=== PATIENT | female | born 2000 | race Caucasian/White ===

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

== ENCOUNTER 2021-09-24 15:01 | Emergency (ER) | payer MEDICAID, SELFPAY ==
[2021-09-24 15:06] VITALS: BP 135/79; PULSE 97; RESP 16; TEMP 37.2; O2SAT 98
--- NOTE | 2021-09-24 15:17 | W.ED.GENAD ---
Discharge Plan Disposition Patient Disposition: HOME Condition: Stable Discharge Details Clinical Impression: Abdominal pain Primary Care Provider: Unknown,Unknown ED Provider: Yao Koch Home Meds and New Rx's Prescriptions: Continued loratadine [Claritin] 10 mg tablet 10 mg PO DAILY RF: 0 Kyleena 17.5 mcg/24 hrs (5 yrs) 19.5 mg intrauterine device 1 device IY ONCE RF: 0 (DME) Aerochamber Plus Flow-Vu 1 EACH spacer 1 ea Miscellaneous PRN Qty: 1 RF: 1 albuterol sulfate [ProAir HFA] 8.5 GM HFA aerosol inhaler 2 puff Inhalation ONCE Qty: 1 RF: 1 ibuprofen 800 mg tablet 800 mg PO TID PRN (Reason: pain) Qty: 30 RF: 2 Chewable Multi Vitamin 1 EACH tablet,chewable 1 tab PO DAILY PRN PRNRF: 0 Discharge Instructions Instructions: Abdominal Pain (ED) Additional Instructions: Please follow-up for your ultrasound they will likely call you in the morning, if you do not hear from them by 10, I recommend calling Take ibuprofen 600 mg every 8 hours with food Take Tylenol 650 mg every 4-6 hours Return with worsening pain, fever, chills, or should you have new or progressing symptoms Follow-up with the EDGE TRIMMING MACHINE OPERATOR doctor listed Referrals: Kathrine Malone MD [ [facility] STAFF PHYSICIAN] - Summer English MD [ [facility] STAFF PHYSICIAN] - Discharge Data Discharge Date/Time-TO BE ENTERED AT DEPARTURE: 09/24/21 17:19 Medical Decision Making <CARISSA Armendariz - Last Filed: 09/25/21 12:10> 21-year-old female who reports history of recurrent ovarian cyst, seen at another ER 2 months ago and told that she had 7 on her right ovary via ultrasound. Patient reports this pain feels very similar. She is typically away at school and has not been able to follow-up easily with her EDGE TRIMMING MACHINE OPERATOR team here locally. Clinically she appears well, nontoxic. Abdomen is soft, diffuse lower tenderness worse in the right side but no guarding rebound or rigidity. Abdominal exam is not consistent with an acute abdomen. Patient declines pelvic examination. Given she has not sexually active, recently had a normal pelvic ultrasound and pelvic examination with negative swabs, I do believe this to be reasonable. Patient is agreeable to obtaining IV access, medical screening laboratory values, urinalysis, and will give IV Toradol and Zofran. I believe that her examination is most consistent with ovarian cyst and extremely low suspicion for ovarian torsion. Given her symptoms however certainly cannot rule out , ectopic , UTI, pyelonephritis, appendicitis, etc. I have placed her on the EDGE TRIMMING MACHINE OPERATOR list to help expedite her outpatient follow-up while she is home on school break. We can also set up for outpatient US Medical Records Medical records reviewed: Yes I reviewed the patient's medical records. <CARISSA Medina - Last Filed: 09/24/21 18:35> Care is transitioned to me from Yao Koch physician assistant golf professional at [address] Patient is resting comfortably in room, she states that her pain is almost completely resolved On exam she has minimal tenderness in her right adnexal region, she has no McBurney's point tenderness, rebound, or guarding, her CBC and CMP are reassuring, her urine is negative and urinalysis is reassuring She is ordered for an outpatient pelvic ultrasound Low suspicion for torsion or appendicitis on exam She has not been sexually active since she had a pelvic exam and swabs performed to months ago and declines additional exam today At this time think she stable for discharge home She is given low threshold to return should she have new or worsening complaints We have ordered an ultrasound in the emergency room today not available and given the low suspicion for torsion on today's exam I do not think there is acute need for an ultrasound, she is aware that should she have recurrence of her pain or with any persistent or worsening symptoms that she should be reassessed immediately Discharged home in stable condition with stable vitals Medical Records Medical records reviewed: Yes I reviewed the patient's medical records. Lab Data Lab results reviewed: Yes I reviewed the patient's lab results. HPI <CARISSA Armendariz - Last Filed: 09/25/21 12:10> General Mode of arrival: ambulatory. Date/Time Provider Initiated Documentation: 09/24/21 15:01. Limitations to Documentation: no limitations. Information obtained by: patient. HPI Narrative: This is a 21-year-old female who reports reoccurring ovarian cyst, dysmenorrhea, presenting to the ER reporting right lower quadrant pain that began yesterday which is consistent with her chronic ovarian cyst. She states the pain is moderate, aching and sharp, took Tylenol with little relief. Patient states that she was seen at another ER approximately 2 months ago and at that time had an extensive work-up including pelvic exam, vaginal cultures, ultrasound, and subsequently discharged. Patient states that at that time she was sexually active but since her ER visit she has not been sexually active. Patient denies history of STD or exposure of known STD. Denies vaginal bleeding or discharge. She does report nausea but denies any vomiting. She reports the pain does radiate into her back. Denies fever, dysuria, hematuria, diarrhea or constipation. Patient is wondering if a refill of the medication given to her at the other hospital would be beneficial. She was able to show me a screenshot on her phone it would appear as though she was provided a prescription for doxycycline and Flagyl. She reports very irregular menstrual cycles, last menstrual cycle was approximately 2 weeks ago. Patient states that she was initially treated with an IUD for her irregular periods which helped initially but now symptoms seem to breakthrough on a regular basis. She is away at school and it is difficult for her to follow-up with her EDGE TRIMMING MACHINE OPERATOR team here. Related Data Home Medications Medication Instructions Recorded Confirmed Chewable Multi Vitamin 1 tab PO DAILY PRN PRN 10/29/14 09/24/21 Aerochamber Plus Flow-Vu #1 script 05/16/16 04/23/19 albuterol sulfate [ProAir HFA] 2 puff INHALATION ONCE #1 inhaler 05/15/17 09/24/21 loratadine 10 mg tablet 10 mg PO DAILY 01/12/19 09/24/21 ibuprofen 800 mg tablet 800 mg PO TID PRN #30 tab 04/02/19 09/24/21 levonorgestrel 1 device IY ONCE 04/30/19 09/24/21 Previous Rx's Medication Instructions Recorded ibuprofen 800 mg tablet 800 mg PO TID PRN #30 tab 04/02/19 Allergies Allergy/AdvReac Type Severity Reaction Status Date / Time No Known Allergies Allergy Verified 09/24/21 15:12 General Stated Complaint: EDGE TRIMMING MACHINE OPERATOR KAYLI: 3 Review of Systems <CARISSA Armendariz - Last Filed: 09/25/21 12:10> Constitutional Constitutional: Denies fever(s) Cardiovascular Cardiovascular: Denies chest pain and Denies dyspnea Respiratory Respiratory: Denies cough and Denies dyspnea Gastrointestinal Gastrointestinal: Reports abdominal pain, Denies constipation, Denies diarrhea, Reports nausea and Denies vomiting Genitourinary Genitourinary: Reports abnormal vaginal bleeding, Denies hematuria, Denies dysuria and Denies vaginal discharge Musculoskeletal Musculoskeletal: Reports back pain Integumentary/Breasts Skin/Breast: Denies rash PFSH <CARISSA Armendariz - Last Filed: 09/25/21 12:10> All Active Problems (Updated 09/24/21 @ 17:06 by CARISSA Medina) Abdominal pain (Acute) Mild intermittent asthma (Acute) Dysmenorrhea in adolescent (Acute 08/27/17) Menorrhagia with regular cycle (Acute 08/27/17) Medical History (Updated 09/24/21 @ 17:06 by CARISSA Medina) Fracture of phalanx of right index finger Plica syndrome, left knee Surgical History Arthroplasty of knee Family History Mother No problems noted. 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 Do you feel safe at home: Yes Do you feel safe in your relationship?: Yes Female Reproductive History Menstrual Age of Menarche: 16 control method: none and progestin IUCD (Kyleena inserted by Carson Reyes NP [id number] EXP=02/2021) History History 0 Para Hx # Term Pregnancies Multiple births Hx # Pregnancies Ectopic pregnancies AB induced Hx Number of Living Children AB spontaneous Exam <CARISSA Armendariz - Last Filed: 09/25/21 12:10> Const General: cooperative, healthy appearing, comfortable and no acute distress Orientation: alert and awake HENMT Head: normal to inspection, normocephalic and atraumatic Eyes General: appearance normal, both eyes and all related structures Conjunctivae: conjunctivae normal Neck Neck: normal visual inspection, trachea midline and supple Resp Effort & Inspection: normal respiratory effort and able to speak in complete sentences Auscultation: clear to auscultation bilaterally Cardio Rate: regular rate Rhythm: regular rhythm GI Inspection: normal to inspection Palpation: soft, not firm, no guarding, no pulsatile masses and tender (Diffuse lower quadrants, worse on the right lower) with no rebound tenderness Auscultation: normal bowel sounds General: deferred (Patient declined) Back/Spine/Pelvis Back: No back tenderness Skin General skin exam: no rashes or lesions noted Neuro General: patient alert, patient awake, moves all extremities and no focal motor deficits Sensory Exam: no sensory deficits noted Psych Appearance: grossly normal Mental Status: mental status grossly normal Course <CARISSA Armendariz - Last Filed: 09/25/21 12:10> Vital Signs Vital signs: Vital Signs Temperature 37.2 C 09/24/21 15:06 Pulse 97 H 09/24/21 15:06 Respiratory Rate 16 09/24/21 15:06 Blood Pressure 135/79 09/24/21 15:06 Pulse Oximetry 98 09/24/21 15:06 Temperature 37.2 C 09/24/21 15:06 Temperature Source Skin 09/24/21 15:06 Pulse 97 H 09/24/21 15:06 Respiratory Rate 16 09/24/21 15:06 Respiratory Effort 09/24/21 15:14 Blood Pressure 135/79 09/24/21 15:06 Blood Pressure Position Sitting 09/24/21 15:06 Pulse Oximetry 98 09/24/21 15:06 Oxygen Delivery Method Room Air 09/24/21 15:06 Oxygen Flow Rate 0 09/24/21 15:06 Pain Level 9 09/24/21 15:16 Comment 09/24/21 15:06 PAWSS <CARISSA Armendariz - Last Filed: 09/25/21 12:10> Have you Been Recently Intoxicated or Drunk Within the Last 30 days?: No Have you Ever Experienced Previous Episodes of Alcohol Withdrawal?: No Have you ever Experienced Withdrawal Seizures?: No Have you ever Experienced Delirium Tremens(DT)s?: No Have you ever undergone Alcohol Rehabilitation Treatment (i.e, inpt ot outpatient treatment programs)?: No Have you ever Experienced Blackouts?: No Have you ever Combined Alcohol with other Downers within the last 90 days?: No Have you ever Combined Alcohol with any other Substance of Abuse during the last 90 days?: No Positive Blood Alcohol level on Presentation? [PCS.BAL]: No Evidence of Increased Autonomic Activity (i.e. HR>120, tremor, sweating, agitation, nausea)?: No Result: 0
[2021-09-24 15:56] LABS: Bilirubin Negative (Negative); Blood Negative (Negative); Clarity Clear (Clear); Glucose Negative (Negative); Ketones Negative (Negative); Leukocyte Esterase Negative (Negative); Nitrite Negative (Negative); Specific Gravity 1.025 (1.005-1.025); Urobilinogen 0.2 EU/dL (Up TO 0.2)
--- NOTE | 2021-09-24 15:58 | NUR.NOTE ---
Faxed referral to [facility] for recurrent ovarian cysts. She is here on vacation from school, hoping to be seen while home on vacation. She is an established patient at [facility]. Put the referral in Care Management's box.
[2021-09-24 15:59] LABS: Abs Immature Grans 0.03 10^3/uL (0.0-0.06); Absolute Basophil Count 0.05 10^3/uL (0.0-0.2); Absolute Eosinophil Count 0.06 10^3/uL (0.0-0.7); Absolute Lymphocyte Count 2.51 10^3/uL (1.2-3.4); Absolute Neutrophil Count 6.62 10^3/uL (1.2-6.7); Basophils % 0.5; Eosinophils % 0.6; HCT 45.9 % (36.0-46.0); HGB 14.7 g/dL (11.2-15.7); Immature Grans % 0.3; Lymphocytes % 24.9; MCH 28.3 pg (27.0-33.0); MCV 88.4 fL (80-95); Monocytes % 7.9; Neutrophils % 65.8; Nucleated RBC 0 %; Platelet Count 338 10^3/uL (130-400); RBC 5.19 10^6/uL (3.93-5.22); RDW 11.9 % (11.7-14.6); RDW-SD 38.5 fL; WBC 10.07 10^3/uL (4.4-10.8)
[2021-09-24] MEDS: Ondansetron 4 MG/2 ML VIAL IVP (15:59)
[2021-09-24] MEDS: Ketorolac 30 MG/ML VIAL IVP (16:01)
[2021-09-24 16:18] LABS: ALT 16 U/L (14-59); AST 15 U/L (15-37); Albumin 4.3 g/dL (3.4-5.0); Alkaline Phosphatase 84 U/L (46-116); Anion Gap 7.6 mmol/L (3-11); BUN 9 mg/dL (7-18); Bilirubin, Total 0.4 mg/dL (0.2-1.0); CO2 29.4 mmol/L (21.0-32.0); CREATININE 0.7 mg/dL (0.55-1.02); Calcium 9.2 mg/dL (8.5-10.1); Chloride 104 mmol/L (98-107); Glucose 88 mg/dL (74-106); Lipase 101 U/L (73-393); Potassium 3.6 mmol/L (3.5-5.1); Sodium 141 mmol/L (136-145); Total Protein 8.1 g/dL (6.4-8.2)
[2021-09-24 17:19] VITALS: BP 129/77; PULSE 78; RESP 16; TEMP 36.5; O2SAT 96
[2021-09-26 22:01] LABS: Chlamydia Result Negative (Negative); GC Result Negative (Negative)
== END 2021-09-24 17:19 | disposition home or self-care (01) ==
PROVIDERS: Emergency Provider Physician Assistant
DX: R10.31 Right lower quadrant pain (principal); N83.201 Unspecified ovarian cyst, right side
CPT/HCPCS: 36415; 80053; 81025; 83690; 87491; 87591; 96374; 96375; 99284; 81003; 85025; 99283; J1885; J2405

== ENCOUNTER 2021-09-25 12:24 | Outpatient (CLI) | payer MEDICAID, SELFPAY ==
--- NOTE | 2021-09-25 | DI.US_ITS ---
Exam(s) US PELVIS TRANSVAGINAL EXAM: US PELVIS TRANSVAGINAL CLINICAL HISTORY: RT ADNEXAL PAIN, HX OVARIAN CYSTS TECHNIQUE: Transabdominal and transvaginal imaging was performed using standard protocol. COMPARISON: US US PELVIS TRANSVAGINAL from 01/27/2019 US US PELVIS TRANSVAGINAL from 01/27/2019 FINDINGS: KIDNEYS: Kidneys are symmetric in size. No evidence of renal calculi. Question of bilateral prominent extrarenal pelves.. No renal mass or cyst identified. UTERUS: Anteverted. 8.1 x 3.2 x 5.9 cm Endometrium: IUD approach appears in appropriate position. Endometrial stripe 3 millimeters. Myometrium: Unremarkable. Cervix: Unremarkable. OVARIES: Right: Cyst or mass: 1.8 centimeter involuting corpus luteum cyst. Additional 9 millimeter follicle. . Left: Cyst or mass: 4 x 3 x 5 centimeter circumscribed lesion with intermediate level echoes and mobi le debris. Findings could represent a hemorrhagic cyst. There is no evidence of torsion. DOPPLER: Color: Symmetric and uniform flow to both ovaries. No hyperemia. Duplex: Normal ovarian arterial waveforms visualized. CUL-DE-SAC: Free fluid: None. IMPRESSION: 1. Normal-appearing uterus with endometrial stripe within normal limits. 2. Unremarkable bilateral ovaries. DATA REPOSITORY:
== END 2021-09-25 12:44 ==
PROVIDERS: Visit Provider Physician Assistant
DX: R10.2 Pelvic and perineal pain (principal); N83.11 Corpus luteum cyst of right ovary; N83.292 Other ovarian cyst, left side; Z97.5 Presence of (intrauterine) contraceptive device
CPT/HCPCS: 76830; 76856

== ENCOUNTER 2021-09-25 13:30 | Emergency (ER) | payer MEDICAID, SELFPAY ==
[2021-09-25 13:34] VITALS: BP 120/82; PULSE 81; RESP 18; TEMP 37; O2SAT 99
--- NOTE | 2021-09-25 14:17 | ED.GENADUL_ITS ---
Discharge Plan Disposition Patient Disposition: HOME Condition: Stable Discharge Details Clinical Impression: Abdominal pain Primary Care Provider: Unknown,Unknown ED Provider: Yao Koch Home Meds and New Rx's Prescriptions: Continued loratadine [Claritin] 10 mg tablet 10 mg PO DAILY RF: 0 Kyleena 17.5 mcg/24 hrs (5 yrs) 19.5 mg intrauterine device 1 device IY ONCE RF: 0 (DME) Aerochamber Plus Flow-Vu 1 EACH spacer 1 ea Miscellaneous PRN Qty: 1 RF: 1 albuterol sulfate [ProAir HFA] 8.5 GM HFA aerosol inhaler 2 puff Inhalation ONCE Qty: 1 RF: 1 ibuprofen 800 mg tablet 800 mg PO TID PRN (Reason: pain) Qty: 30 RF: 2 Chewable Multi Vitamin 1 EACH tablet,chewable 1 tab PO DAILY PRN PRNRF: 0 Discharge Instructions Instructions: Abdominal Pain (ED) Additional Instructions: We discussed the results of your ultrasound and a single dose of Motrin has been given. I personally discussed her case with Dr. English who you are scheduled for seen by at 3:20 this afternoon. Plan is to discharge you from the ER and have you go directly to your appointment where they will further evaluate your ongoing symptoms. Please watch for new or worsening symptoms and return to the ER for any concerns. Discharge Data Discharge Date/Time-TO BE ENTERED AT DEPARTURE: 09/25/21 15:11 Medical Decision Making 21-year-old female reporting acute on chronic abdominal pain, seen in the ER yesterday, laboratory values were unremarkable, responded very well to Toradol, set up for ultrasound today and an [facility]CR[facility] appointment at 3:20 PM. Patient has not taken any medications for her symptoms. Clinically she appears well, nontoxic, afebrile, hemodynamically stable. Abdominal examination is non surgical in nature. Based upon her presentation, extremely low suspicion for torsion and/or appendicitis. I see no emergent reason to repeat urinalysis and/or laboratory values at this time. Awaiting official ultrasound report from radiology. Patient will be given 800 mg p.o. Motrin. Ultrasound reveals a hemorrhagic cyst on the left side, no evidence of torsion or emergent process. Discussed ultrasound findings with patient. I then reached out to Dr. English, [facility]CR[facility] [employer] [facility], as she will be seeing the patient at 320 this afternoon. We discussed her presentation and work-up both yesterday and today including her ultrasound. She does not request any additional measures to be taken here in the ER and she will be happy to see the patient at her scheduled appointment this afternoon. I did relay this conversation with the patient, she has no additional questions or concerns and is comfortable discharge. Standard discharge and return precautions provided This documentation was generated using [employer] dictation system, please disregard any oddities of phrase or misspellings. Medical Records Medical records reviewed: Yes I reviewed the patient's medical records. Imaging Data Radiologic Study: Attestation: I personally reviewed and interpreted this imaging study as follows: Imaging: Ultrasound Radiologist's impression: US PELVIS TRANSVAGINAL CLINICAL HISTORY RT ADNEXAL PAIN, HX OVARIAN CYSTS TECHNIQUE Transabdominal and transvaginal imaging was performed using standard protocol. COMPARISON [US US PELVIS TRANSVAGINAL from 01/27/2019 US US PELVIS TRANSVAGINAL from 01/27/2019] [] FINDINGS KIDNEYS: [Kidneys are symmetric in size.] [No evidence of renal calculi.] [Question of bilateral prominent extrarenal pelves..] [No renal mass or cyst identified.] UTERUS: [Anteverted.] 8.1 x 3.2 x 5.9 cm Endometrium: [] IUD approach appears in appropriate position. Endometrial stripe 3 millimeters. Myometrium: [Unremarkable.] Cervix: [Unremarkable.] OVARIES: Right: Cyst or mass: [1.8 centimeter involuting corpus luteum cyst. Additional 9 millimeter follicle..] Left: Cyst or mass: [4 x 3 x 5 centimeter circumscribed lesion with intermediate level echoes and mobile debris. Findings could represent a hemorrhagic cyst. There is no evidence of torsion. DOPPLER: Color: [Symmetric and uniform flow to both ovaries.] [No hyperemia.] Duplex: [Normal ovarian arterial waveforms visualized.] CUL-DE-SAC: Free fluid: [None.] IMPRESSION [Normal-appearing uterus with endometrial stripe within normal limits.] [Unremarkable bilateral ovaries.] HPI General Mode of arrival: ambulatory . Date/Time Provider Initiated Documentation: 09/25/21 13:31 . Limitations to Documentation: no limitations . Information obtained by: patient . HPI Narrative: This is a 21-year-old female who I personally evaluated yesterday, please see that note as well, presenting to the ER for ongoing abdominal pain and ultrasound results. In short patient has a history of dysmenorrhea, reoccurring ovarian cyst, and an IUD placed. She states that she was seen in another ER roughly 2 months ago, treated for presumptive pelvic inflammatory disease but her cultures were negative. Patient states that her pain is fairly cyclic in nature. She is home from college and actually has an appointment with CONCRETE ROD BUSTER at 3:20 PM today. Patient states that she had her ultrasound, her appointment is not for a couple of hours, and given she is still having pain, came back to the ER for evaluation and ultrasound results. She reports nausea, vomiting once this morning. She has not taken any medication for her pain. Denies fever, chest pain, shortness of breath low back pain, vaginal bleeding or discharge, hematuria, dysuria. Reports a bowel movement 48 hours ago, but not over the past 24 hours. Patient states that she has not been sexually active since her last ER visit roughly 2 months ago. Related Data Home Medications Medication Instructions Recorded Confirmed Chewable Multi Vitamin 1 tab PO DAILY PRN PRN 10/29/14 09/25/21 Aerochamber Plus Flow-Vu #1 script 05/16/16 09/25/21 albuterol sulfate [ProAir HFA] 2 puff INHALATION ONCE #1 inhaler 05/15/17 09/25/21 loratadine 10 mg tablet 10 mg PO DAILY 01/12/19 09/25/21 ibuprofen 800 mg tablet 800 mg PO TID PRN #30 tab 04/02/19 09/25/21 levonorgestrel 1 device IY ONCE 04/30/19 09/25/21 Previous Rx's Medication Instructions Recorded ibuprofen 800 mg tablet 800 mg PO TID PRN #30 tab 04/02/19 Allergies Allergy/AdvReac Type Severity Reaction Status Date / Time No Known Allergies Allergy Verified 09/25/21 13:40 General Stated Complaint: Abd Prob KAYLI: 3 Review of Systems Constitutional Constitutional: Denies fever(s) Cardiovascular Cardiovascular: Denies chest pain Respiratory Respiratory: Denies cough Gastrointestinal Gastrointestinal: Reports abdominal pain, Denies diarrhea, Reports nausea and Reports vomiting Genitourinary Genitourinary: Denies abnormal vaginal bleeding, Denies hematuria, Denies dysuria and Denies vaginal discharge Musculoskeletal Musculoskeletal: Denies back pain Integumentary/Breasts Skin/Breast: Denies rash PFSH All Active Problems Abdominal pain (Acute) Mild intermittent asthma (Acute) Dysmenorrhea in adolescent (Acute 08/27/17) Menorrhagia with regular cycle (Acute 08/27/17) Medical History Fracture of phalanx of right index finger Plica syndrome, left knee Surgical History Arthroplasty of knee Family History Mother No problems noted. 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 Do you feel safe at home: Yes Do you feel safe in your relationship?: Yes Female Reproductive History Menstrual Age of Menarche: 16 control method: none and progestin IUCD (Kyleena inserted by Carson Reyes NP HUG=[id number] EXP=02/2021) History History 0 Para Hx # Term Pregnancies Multiple births Hx # Pregnancies Ectopic pregnancies AB induced Hx Number of Living Children AB spontaneous Exam Const General: cooperative, healthy appearing, comfortable and no acute distress Orientation: alert and awake [facility] Head: normal to inspection, normocephalic and atraumatic Eyes General: appearance normal, both eyes and all related structures Conjunctivae: conjunctivae normal Neck Neck: normal visual inspection, trachea midline and supple Resp Effort & Inspection: normal respiratory effort and able to speak in complete sentences Auscultation: clear to auscultation bilaterally Cardio Rate: regular rate Rhythm: regular rhythm GI Inspection: normal to inspection Palpation: soft, not firm, no guarding and tender (Diffuse, mild, lower, slightly worse on the right) Auscultation: normal bowel sounds General: deferred (Patient declined) Back/Spine/Pelvis Back: No back tenderness Skin General skin exam: no rashes or lesions noted Neuro General: patient alert, patient awake, moves all extremities and no focal motor deficits Cognition: normal cognition Speech: speech normal Gait: normal gait Sensory Exam: no sensory deficits noted Psych Appearance: grossly normal Mental Status: mental status grossly normal Course Vital Signs Vital signs: Vital Signs Temperature 37 C 09/25/21 13:34 Pulse 81 09/25/21 13:34 Respiratory Rate 18 09/25/21 13:34 Blood Pressure 120/82 09/25/21 13:34 Pulse Oximetry 99 09/25/21 13:34 Temperature 37 C 09/25/21 13:34 Temperature Source Oral 09/25/21 13:34 Pulse 81 09/25/21 13:34 Respiratory Rate 18 09/25/21 13:34 Respiratory Effort Non-Labored 09/25/21 13:39 Blood Pressure 120/82 09/25/21 13:34 Blood Pressure Position Sitting 09/25/21 13:34 Pulse Oximetry 99 09/25/21 13:34 Oxygen Delivery Method Room Air 09/25/21 13:34 Oxygen Flow Rate 0 09/25/21 13:34 Pain Level 9 09/25/21 13:34 PAWSS Have you Been Recently Intoxicated or Drunk Within the Last 30 days?: No Have you Ever Experienced Previous Episodes of Alcohol Withdrawal?: No Have you ever Experienced Withdrawal Seizures?: No Have you ever Experienced Delirium Tremens(DT)s?: No Have you ever undergone Alcohol Rehabilitation Treatment (i.e, inpt ot outpatient treatment programs)?: No Have you ever Experienced Blackouts?: No Have you ever Combined Alcohol with other Downers within the last 90 days?: No Have you ever Combined Alcohol with any other Substance of Abuse during the last 90 days?: No Positive Blood Alcohol level on Presentation? [PCS.BAL]: No Evidence of Increased Autonomic Activity (i.e. HR>120, tremor, sweating, agitation, nausea)?: No Result: 0
[2021-09-25] MEDS: Ibuprofen 800 MG TAB PO (14:40)
[2021-09-25 15:00] VITALS: BP 125/78; PULSE 83; RESP 16; TEMP 37
== END 2021-09-25 15:11 | disposition home or self-care (01) ==
PROVIDERS: Emergency Provider Physician Assistant
DX: R10.9 Unspecified abdominal pain (principal); N83.202 Unspecified ovarian cyst, left side
CPT/HCPCS: 99283; 99282

== ENCOUNTER 2021-09-27 19:22 | Observation (INO) | payer MEDICAID, SELFPAY ==
[2021-09-27 19:32] VITALS: BP 135/78; PULSE 85; RESP 18; TEMP 37.2; O2SAT 100
[2021-09-27 19:52] LABS: Abs Immature Grans 0.02 10^3/uL (0.0-0.06); Absolute Basophil Count 0.05 10^3/uL (0.0-0.2); Absolute Lymphocyte Count 2.77 10^3/uL (1.2-3.4); Absolute Monocyte Count 0.85 10^3/uL (0.1-0.8); Basophils % 0.5; Eosinophils % 1.6; HCT 43.6 % (36.0-46.0); HGB 14.3 g/dL (11.2-15.7); Immature Grans % 0.2; Lymphocytes % 25.3; MCH 28.5 pg (27.0-33.0); MCHC 32.8 % (32.0-36.0); MPV 9.1 fL (8.0-11.0); Monocytes % 7.8; Neutrophils % 64.6; Nucleated RBC 0 %; Platelet Count 316 10^3/uL (130-400); RBC 5.01 10^6/uL (3.93-5.22); RDW 11.9 % (11.7-14.6); WBC 10.96 10^3/uL (4.4-10.8)
[2021-09-27 19:53] LABS: Absolute Eosinophil Count 0.18 10^3/uL (0.0-0.7); Absolute Neutrophil Count 7.08 10^3/uL (1.2-6.7)
[2021-09-27] MEDS: Pantoprazole 40 MG VIAL IVP (19:58)
[2021-09-27 20:05] LABS: ALT 14 U/L (14-59); AST 12 U/L (15-37); Alkaline Phosphatase 88 U/L (46-116); Anion Gap 8.1 mmol/L (3-11); BUN 12 mg/dL (7-18); Bilirubin, Total 0.3 mg/dL (0.2-1.0); CO2 25.9 mmol/L (21.0-32.0); CREATININE 0.7 mg/dL (0.55-1.02); Calcium 8.9 mg/dL (8.5-10.1); Chloride 105 mmol/L (98-107); Glucose 115 mg/dL (74-106); Lipase 93 U/L (73-393); Potassium 3.6 mmol/L (3.5-5.1); Sodium 139 mmol/L (136-145); Total Protein 7.5 g/dL (6.4-8.2)
[2021-09-27] MEDS: Sucralfate 1 GM TAB PO (20:36)
[2021-09-27] MEDS: Ketorolac 30 MG/ML VIAL IVP (20:36)
[2021-09-27] MEDS: FAMOTIDINE 20 MG/50 ML BAG 200 MG IVPB (20:36)
--- NOTE | 2021-09-27 21:30 | DI.CT_ITS ---
Exam(s) CT ABDOMEN PELVIS W EXAM: CT ABDOMEN PELVIS W CLINICAL HISTORY: abd pain. TECHNIQUE: Imaging Protocol: Axial computed tomography images with coronal and sagittal reformatted images were created and reviewed CONTRAST MATERIAL: Intravenous: Omnipaque 350 Contrast volume:100 ml Oral: no COMPARISON: No exams were available for comparison FINDINGS: ABDOMEN: Lung Bases: Normal where visualized. Liver: Normal density. No measurable mass. Gallbladder and biliary tract: Contracted no radiodense calculus or dilation. Pancreas: Normal density, no abnormal calcifications or inflammatory process. Spleen: Normal. Kidneys: Normal size, contour and axis. No radiodense stones or obstructive uropathy. No masses seen. Adrenal glands: No masses seen. Abdominal Aorta: Abdominal portion non-dilated. PELVIS: Bladder: No gross wall thickening. No calculi.No focal mass. Bowel: Increased stool in rectum. Remainder of: Unremarkable. No obstruction or bowel wall thickeni ng. Appendix normal. Peritoneal cavity: No ascites, collection or mesenteric inflammatory response. Bones: Within normal limits for age. Reproductive organs: Left ovarian cyst. IUD Lymph nodes: Unremarkable. Impression: Unremarkable CT scan of the abdomen and pelvis. RADIATION DOSE DELIVERED: 706.98mGy.cm Total DLP DATA REPOSITORY: All CT scans at this facility are submitted to the National Radiology Data Registry (NRDR) Dose Index Registry (DIR) with the [employer] (ACR). RADIATION OPTIMIZATION: All CT scans at this facility use at least one of these dose optimization te chniques: automated exposure control; mA and/or kV adjustment per patient size (includes targeted exa ms where dose is matched to clinical indication); or iterative reconstruction.
[2021-09-27 21:44] VITALS: BP 136/82; PULSE 74; RESP 16; O2SAT 96
[2021-09-27] MEDS: Omnipaque 350 MG/ML 100 ML BTL IJ (22:16)
--- NOTE | 2021-09-27 22:44 | W.ED.GENAD ---
Discharge Plan Disposition Patient Disposition: [facility] INPATIENT Condition: Improving Discharge Details Clinical Impression: Abdominal pain Admit Date/Time: 09/27/21 23:42 Admit Provider: Mitzy Reza Attending Provider: Mitzy Reza Primary Care Provider: Avelina Yañez ED Provider: Kristal Arechiga Discharge Data Discharge Date/Time-TO BE ENTERED AT DEPARTURE: 09/28/21 00:37 Medical Decision Making <Kristal Arechiga NP - Last Filed: 09/28/21 15:53> presents with new epigastric pain, on NSAIDS for ovarian cyst but only 4 doses of ibuprofen 600 mg over past 2 days. no blood stool or vomiting blood, abdomen non surgical exam. given GI cocktail and IV protonix, suspect gastric source. will check routine labs including LFT and lipase. some improvement, will provide toradol as she is reporting increasing right lower quad pain consistent with ovarian cyst pain she was having earlier. last ibuprofen was at 1 pm today. she starts her upper abdominal pain improved at rest but with movement becomes very sharp/stabbing and pinching. 8/10. given famotidine 20 mg IVPB and carafate 1 gm with no significant improvement. discussed case with DR Delarosa who performs bedside POCUS exam, concern for possible gallbladder wall thickening and pericholecystic fluid. Her liver enzymes and lipase normal. ct scan abd/pelvis ordered and unremarkable. case is discussed with DR Pond who is agreeable to observation overnight and formal US in am. report and care of patient signed off. Medical Records Medical records reviewed: Yes I reviewed the patient's medical records. Imaging Data Radiologic Study: Imaging: CT Scan (abd/pelvis with contrast) Lab Data Lab results reviewed: Yes I reviewed the patient's lab results. Lab results narrative: Laboratory Results - last 24 hr 09/27/21 09/27/21 19:48 19:48 WBC 10.96 H RBC 5.01 Hgb 14.3 Hct 43.6 MCV 87.0 MCH 28.5 MCHC 32.8 RDW 11.9 Plt Count 316 MPV 9.1 Immature Gran % 0.2 Neutrophils % 64.6 Lymphocytes % 25.3 Monocytes % 7.8 Eosinophils % 1.6 Basophils % 0.5 Nucleated RBC % 0 Absolute Neutrophils 7.08 H Absolute Lymphocytes 2.77 Absolute Monocytes 0.85 H Absolute Eosinophils 0.18 Absolute Basophils 0.05 Sodium 139 Potassium 3.6 Chloride 105 Carbon Dioxide 25.9 Anion Gap 8.1 BUN 12 Creatinine 0.7 Estimated GFR/1.73 m2 >= 60.00 Glucose 115 H Calcium 8.9 Total Bilirubin 0.3 AST 12 L ALT 14 Alkaline Phosphatase 88 Total Protein 7.5 Albumin 4.0 Lipase 93 <Haim Delarosa MD - Last Filed: 09/29/21 19:35> Patient seen, examined, and discussed with JARON Arechiga. I agree with treatment plan as discussed/documented. On physical exam patient is significantly tender in epigastric and right upper quadrant with guarding. This despite multiple antiacid and analgesics provided. Bedside [id number] right upper quadrant limited abdominal ultrasound was performed by me: Gallbladder is contracted, gallbladder wall appears upper level of normal, no obvious stone, no free fluid.. Plan for CT the abdomen pelvis to assess for acute surgical pathology. Case was discussed with oncoming physician Dr. Reeder with CT pending at signout. HPI <Kristal Arechiga NP - Last Filed: 09/28/21 15:53> General Mode of arrival: ambulatory. Date/Time Provider Initiated Documentation: 09/27/21 19:23. Limitations to Documentation: no limitations. Information obtained by: patient. HPI Narrative: 21 year old female who returns to the ED with abdominal pain, initially diagnosed with ovarian cyst, seen by BASE FILLER OPERATOR and was improved on ibuprofen but now with epigastric and right upper quad pain she reports as stabbing and pinching. she has not vomitted, has had no diarrhea or constipation, no vomiting. has IUD confirmed in place with no issue. negative test or evidence of torsion. no similar history. Related Data Home Medications Medication Instructions Recorded Confirmed Chewable Multi Vitamin 1 tab PO DAILY PRN PRN 10/29/14 09/27/21 Aerochamber Plus Flow-Vu #1 script 05/16/16 09/27/21 albuterol sulfate [ProAir HFA] 2 puff INHALATION ONCE #1 inhaler 05/15/17 09/27/21 loratadine 10 mg tablet 10 mg PO DAILY 01/12/19 09/27/21 levonorgestrel 1 device IY ONCE 04/30/19 09/27/21 ibuprofen 600 mg tablet 600 mg PO Q6H PRN #60 tab 09/25/21 09/27/21 fluticasone propionate [Flonase 1 spray INTRANASAL PRN PRN 09/27/21 09/27/21 Allergy Relief] omeprazole 40 mg PO DAILY #30 cap 09/28/21 sucralfate [Carafate] 1 g PO TID 14 Days #42 tab 09/28/21 Previous Rx's Medication Instructions Recorded ibuprofen 600 mg tablet 600 mg PO Q6H PRN #60 tab 09/25/21 omeprazole 40 mg PO DAILY #30 cap 09/28/21 sucralfate [Carafate] 1 g PO TID 14 Days #42 tab 09/28/21 Allergies Allergy/AdvReac Type Severity Reaction Status Date / Time No Known Allergies Allergy Verified 09/27/21 19:35 General Stated Complaint: Abd Prob KAYLI: 3 Review of Systems <Kristal Arechiga NP - Last Filed: 09/28/21 15:53> All systems reviewed & are unremarkable except as noted in HPI and below Gastrointestinal Gastrointestinal: Reports abdominal pain, Denies heartburn and Reports nausea PFSH <Kristal Arechiga NP - Last Filed: 09/28/21 15:53> All Active Problems (Updated 09/28/21 @ 15:53 by Kristal Arechiga NP) Abdominal pain (Acute) Gastritis (Acute) IUD (intrauterine device) in place (Acute) Pelvic pain (Acute) Hemorrhagic cyst (Acute) Abdominal pain (Acute) Mild intermittent asthma (Acute) Dysmenorrhea in adolescent (Acute 08/27/17) Menorrhagia with regular cycle (Acute 08/27/17) Medical History (Updated 09/28/21 @ 15:53 by Kristal Arechiga NP) Fracture of phalanx of right index finger Plica syndrome, left knee Surgical History Arthroplasty of knee Family History Mother No problems noted. 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 Do you feel safe at home: Yes Do you feel safe in your relationship?: Yes Female Reproductive History Menstrual Age of Menarche: 16 control method: none and progestin IUCD (Kyleena inserted by Carson Reyes NP [id number] EXP=02/2021) History History 0 Para Hx # Term Pregnancies Multiple births Hx # Pregnancies Ectopic pregnancies AB induced Hx Number of Living Children AB spontaneous Exam <Kristal Arechiga NP - Last Filed: 09/28/21 15:53> Const General: cooperative, healthy appearing and acute distress moderate (lying on her side in position) Nutritional Appearance: average body habitus Orientation: alert, awake and oriented x3 HENMT Head: normal to inspection, normocephalic and atraumatic Mouth: moist mucous membranes abnormal Resp Effort & Inspection: normal respiratory effort Auscultation: clear to auscultation bilaterally Cardio Rate: regular rate Rhythm: regular rhythm GI Inspection: normal to inspection and non-distended Palpation: soft, tender in the epigastrum and in the RUQ and No ascites Auscultation: normal bowel sounds Skin General skin exam: no rashes or lesions noted Neuro General: patient alert, patient awake and patient oriented x3 Extrem General: normal to inspection, full ROM and no pedal edema Course <Kristal Arechiga NP - Last Filed: 09/28/21 15:53> Vital Signs Vital signs: Vital Signs Temperature 37.2 C 09/27/21 19:32 Pulse 85 09/27/21 19:32 Respiratory Rate 18 09/27/21 19:32 Blood Pressure 135/78 09/27/21 19:32 Pulse Oximetry 100 09/27/21 19:32 Temperature 37.2 C 09/27/21 19:32 Temperature Source Skin 09/27/21 19:32 Pulse 74 09/27/21 21:44 Respiratory Rate 16 09/27/21 21:44 Respiratory Effort Non-Labored 09/27/21 19:37 Blood Pressure 136/82 09/27/21 21:44 Pulse Oximetry 96 09/27/21 21:44 Pain Level 8 09/27/21 21:44 Lab/Test Results Lab/Test Results: Laboratory Tests Range/Units 09/27/21 09/27/21 19:48 19:48 WBC (4.4-10.8) 10^3/uL 10.96 H RBC (3.93-5.22) 10^6/uL 5.01 Hgb (11.2-15.7) g/dL 14.3 Hct (36.0-46.0) % 43.6 MCV (80-95) fL 87.0 MCH (27.0-33.0) pg 28.5 MCHC (32.0-36.0) % 32.8 RDW (11.7-14.6) % 11.9 Plt Count (130-400) 10^3/uL 316 MPV (8.0-11.0) fL 9.1 Immature Gran % 0.2 Neutrophils % 64.6 Lymphocytes % 25.3 Monocytes % 7.8 Eosinophils % 1.6 Basophils % 0.5 Nucleated RBC % % 0 Absolute Neutrophils (1.2-6.7) 10^3/uL 7.08 H Absolute Lymphocytes (1.2-3.4) 10^3/uL 2.77 Absolute Monocytes (0.1-0.8) 10^3/uL 0.85 H Absolute Eosinophils (0.0-0.7) 10^3/uL 0.18 Absolute Basophils (0.0-0.2) 10^3/uL 0.05 Sodium (136-145) mmol/L 139 Potassium (3.5-5.1) mmol/L 3.6 Chloride (98-107) mmol/L 105 Carbon Dioxide (21.0-32.0) mmol/L 25.9 Anion Gap (3-11) mmol/L 8.1 BUN (7-18) mg/dL 12 Creatinine (0.55-1.02) mg/dL 0.7 Estimated GFR/1.73 m2 (mL/min/1.73m2) >= 60.00 Glucose (74-106) mg/dL 115 H Calcium (8.5-10.1) mg/dL 8.9 Total Bilirubin (0.2-1.0) mg/dL 0.3 AST (15-37) U/L 12 L ALT (14-59) U/L 14 Alkaline Phosphatase (46-116) U/L 88 Total Protein (6.4-8.2) g/dL 7.5 Albumin (3.4-5.0) g/dL 4.0 Lipase (73-393) U/L 93
[2021-09-27] MEDS: HYDROmorphone 2 MG/ML VIAL 0.5 MG IVP (23:28)
--- NOTE | 2021-09-27 23:32 | DI.VRAD_ITS ---
PROCEDURE INFORMATION: Exam: CT Abdomen And Pelvis With Contrast Exam date and time: 09/27/2021 9:32 PM Age: 21 years old Clinical indication: Other: Abd pain TECHNIQUE: Imaging protocol: Computed tomography of the abdomen and pelvis with contrast. COMPARISON: US PELVIS TRANSVAGINAL 09/25/2021 1:03 PM FINDINGS: Lungs: Visualized lung bases are clear. Liver: Normal. No mass. Gallbladder and bile ducts: The gallbladder is contracted. The gallbladder is otherwise unremarkable. There is no evidence of biliary ductal dilation. Pancreas: Normal. No ductal dilation. Spleen: Normal. No splenomegaly. Adrenal glands: Normal. No mass. Kidneys and ureters: Normal. No hydronephrosis. Stomach and bowel: No bowel obstruction or significant bowel wall thickening. There is excessive colonic stool content. Appendix: A normal appendix is identified. Intraperitoneal space: No free fluid, fluid collections, or pneumoperitoneum. Retroperitoneal space: No acute abnormalities in the retroperitoneal space. Vasculature: Unremarkable. No abdominal aortic aneurysm. Lymph nodes: No retroperitoneal, pelvic, or mesenteric adenopathy. Urinary bladder: The bladder is decompressed. Reproductive: IUD is present and appears in place. 5 cm x 4.6 cm cyst in the left adnexa. No further imaging is recommended. (Reference: Maynor). The reproductive organs are otherwise unremarkable. Bones/joints: No acute skeletal abnormality or aggressive osseous lesion. Soft tissues: No acute body wall soft tissue findings. IMPRESSION: 1. NEGATIVE FOR ACUTE ABDOMINOPELVIC PATHOLOGY. 2. INCIDENTAL FINDINGS DETAILED ABOVE. REFERENCES: Maynor et al. Management of Incidental Adnexal Findings on CT and MRI: A White Paper of the ACR Incidental Findings Committee, J Am Victoria Radiol. 2020 Nov;17(2):248-254. Dictated and Authenticated by: Sincere Roche MD. Ordering:IZA Giraldo MD
[2021-09-27 23:54] VITALS: BP 123/81; PULSE 71; RESP 20; TEMP 36.7; O2SAT 97
--- NOTE | 2021-09-28 | DI.US_ITS ---
Exam(s) US ABDOMEN EXAM: US ABDOMEN CLINICAL HISTORY: RUQ pain TECHNIQUE: Ultrasound abdomen performed using standard protocol. COMPARISON: CT CT ABDOMEN PELVIS W from 09/27/[address] ABDOMEN PELVIS W from 09/27/2021 FINDINGS: LIVER: Normal size and echogenicity. No focal liver lesions are seen.. GALLBLADDER: No evidence of cholelithiasis. No evidence of wall thickening. No pericholecystic fluid identified. BALDERRAMA'S SIGN: Negative. BILIARY SYSTEM: No intrahepatic or extrahepatic biliary ductal dilation. KIDNEYS: Kidneys are symmetric in size. No evidence of renal calculi. No evidence of hydronephrosis. No renal mass or cyst identified. PANCREAS: Normal where visualized. SPLEEN: Not enlarged. ABDOMINAL AORTA AND IVC: Visualized portions normal caliber. ASCITES: None seen. IMPRESSION: Normal sonographic appearance of the upper abdomen. DATA REPOSITORY:
[2021-09-28 00:15] VITALS: BP 123/81; PULSE 71; RESP 20; TEMP 36.7; O2SAT 97
[2021-09-28 00:22] LABS: Source Nasal/Nares
[2021-09-28 01:00] LABS: COVID-19 PCR Negative (Negative)
[2021-09-28] MEDS: Lactated Ringers 1,000 ML 125 ML IV ×2 (01:03→08:53)
[2021-09-28] MEDS: Ketorolac 15 MG/ML VIAL IVP (02:13)
[2021-09-28 07:00] VITALS: BP 129/73; PULSE 77; RESP 16; TEMP 36.4; O2SAT 98
[2021-09-28 07:29] LABS: Abs Immature Grans 0.02 10^3/uL (0.0-0.06); Absolute Basophil Count 0.02 10^3/uL (0.0-0.2); Absolute Eosinophil Count 0.12 10^3/uL (0.0-0.7); Absolute Lymphocyte Count 2.73 10^3/uL (1.2-3.4); Absolute Monocyte Count 0.92 10^3/uL (0.1-0.8); Absolute Neutrophil Count 5.45 10^3/uL (1.2-6.7); Basophils % 0.2; Eosinophils % 1.3; HCT 41.5 % (36.0-46.0); HGB 13.3 g/dL (11.2-15.7); Immature Grans % 0.2; Lymphocytes % 29.5; MCH 27.9 pg (27.0-33.0); MPV 9.4 fL (8.0-11.0); Monocytes % 9.9; Neutrophils % 58.9; Nucleated RBC 0 %; Platelet Count 282 10^3/uL (130-400); RBC 4.77 10^6/uL (3.93-5.22); RDW 11.9 % (11.7-14.6); RDW-SD 38.5 fL; WBC 9.26 10^3/uL (4.4-10.8)
[2021-09-28 07:49] LABS: ALT 15 U/L (14-59); AST 14 U/L (15-37); Albumin 3.6 g/dL (3.4-5.0); Alkaline Phosphatase 80 U/L (46-116); Anion Gap 5.2 mmol/L (3-11); BUN 12 mg/dL (7-18); Bilirubin, Total 0.3 mg/dL (0.2-1.0); CO2 29.8 mmol/L (21.0-32.0); CREATININE 0.7 mg/dL (0.55-1.02); Calcium 8.6 mg/dL (8.5-10.1); Chloride 105 mmol/L (98-107); Glucose 85 mg/dL (74-106); Potassium 4.2 mmol/L (3.5-5.1); Sodium 140 mmol/L (136-145); Total Protein 6.8 g/dL (6.4-8.2)
[2021-09-28] MEDS: Pantoprazole 40 MG VIAL IVP (09:19)
[2021-09-28] MEDS: Normal Saline Flush 10 ML SYR IVP (09:20)
--- NOTE | 2021-09-28 09:43 | PDOC.CMIN ---
- If Service Date Differs Date of service: 09/28/21 Time of Service: 09:43 Care Management Initial Assess REASON FOR HOSPITALIZATION:: Right Upper Quadrant Pain PAST MEDICAL HISTORY/PAST SURGICAL HISTORY:: All Active Problems (Updated 09/25/21 @ 15:50 by Summer English MD). IUD (intrauterine device) in place (Acute). Pelvic pain (Acute). Hemorrhagic cyst (Acute). Abdominal pain (Acute). Mild intermittent asthma (Acute). Dysmenorrhea in adolescent (Acute 08/27/17). Menorrhagia with regular cycle (Acute 08/27/17). Medical History (Updated 09/25/21 @ 15:50 by Summer English MD). Fracture of phalanx of right index finger. Plica syndrome, left knee. Surgical History . Arthroplasty of knee PREVIOUS FUNCTIONAL STATUS/SOCIAL/FAMILY SUPPORTS:: Lola lives in [place] with her parents and 2 younger siblings. 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 She drives and is independent at baseline. CURRENT FUNCTIONAL STATUS:: Lola was sitting up in bed when CM met with her. She had just met with Dr. Pond and anticipates that she will need an endoscopy if the GI cocktail is ineffective. She has her tablet and phone and keeping her family up to date. ADVANCE DIRECTIVES:: None on file Has patient been provided with info about the portal/API?: Yes Did the patient sign up for the portal?: No CODE STATUS:: Full Code INSURANCE COVERAGE / FINANCIAL ISSUES:: BS. Medicaid CURRENT HOME/COMMUNITY SERVICES/EQUIPMENT:: N/A PRIMARY CARE PHYSICIAN:: Avelina Yañez APRN ([facility]) POTENTIAL DISCHARGE NEEDS:: Follow up appointments PATIENT/FAMILY EDUCATION NEEDS:: Review discharge instructions, limitations and plan to follow up with community providers. ask me three. TRANSPORTATION:: Via private vehicle with family. PLAN:: Anticipate Lola will be discharged home via private vehicle with family when medically cleared by the provider. She will follow up with community providers and discharge plan of care as prescribed. No new services are anticipated at this time. CM will support discharge planning needs.
--- NOTE | 2021-09-28 10:29 | W.PM.HP.N ---
Date of service: 09/28/21 Time of Service: 10:29 Assessment and Plan Assessment and plan (1) Abdominal pain: Status: Acute Assessment and plan: Upper abdoominal pain, epigastric >RUQ. CT scan and US negative for Gallbladder pathology. Exam and history more consistent with PUD Will try another GI Cocktail. If any improvement then will D/C of Omeprazole 40 mg BID and Carafate. If no improvement will schedule for EGD today. May need HIDA scan as an outpatient Qualifiers: Abdominal location: unspecified location Qualified Code(s): R10.9 - Unspecified abdominal pain History of Present Illness History of Present Illness Chief Complaint: Upper abdomen pain Consults Consult date: 09/28/21 Requesting physician: Kristal Arechiga Narrative: Lola is a 21 year old female who returns to the ED with abdominal pain, initially diagnosed with ovarian cyst, seen by RESEARCH COORDINATOR and was improved on ibuprofen but now with epigastric and right upper quad pain she reports as stabbing and pinching. she has not vomitted, has had no diarrhea or constipation, no vomiting. has IUD confirmed in place with no issue. negative test or evidence of torsion. no similar history. Workup in the ER included CT scan, which was normal except for ovarian cysts, Labs were unremarkable. Patient was admitted for US and pain control. US this am showed a normal liver, gallbladder, kidneys and pancreas. She was given pepcid, protonix and a GI cocktail in the ED without improvement of symptoms. Lola feels hungry and denies nausea. Review of Systems Constitutional Constitutional: Denies fever(s), Denies headache(s) and Denies poor appetite Eyes Eyes: Denies change in vision ENT Ears, Nose, Mouth, and Throat: Denies change in voice and Denies headache(s) Cardiovascular Cardiovascular: Denies chest pain, Denies irregular heart rhythm, Denies palpitations and Denies dyspnea Respiratory Respiratory: Denies cough and Denies dyspnea Gastrointestinal Gastrointestinal: Reports as per HPI Genitourinary Genitourinary: Reports system reviewed and no additional complaints, except as documented Musculoskeletal Musculoskeletal: Reports system reviewed and no additional complaints, except as documented Integumentary/Breasts Skin/Breast: Reports system reviewed and no additional complaints, except as documented Neurologic Neurologic: Denies headache(s) Endocrine Endocrine: Denies palpitations PFSH All Active Problems (Updated 09/28/21 @ 10:36 by Mitzy Reza MD) IUD (intrauterine device) in place (Acute) Pelvic pain (Acute) Hemorrhagic cyst (Acute) Abdominal pain (Acute) Mild intermittent asthma (Acute) Dysmenorrhea in adolescent (Acute 08/27/17) Menorrhagia with regular cycle (Acute 08/27/17) Medical History (Updated 09/28/21 @ 10:36 by Mitzy Reza MD) Fracture of phalanx of right index finger Plica syndrome, left knee Surgical History Arthroplasty of knee Family History Mother No problems noted. 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[employer] - + [employer] Do you feel safe at home: Yes Do you feel safe in your relationship?: Yes Female Reproductive History Menstrual Age of Menarche: 16 control method: none and progestin IUCD (Kyleena inserted by Carson Reyes NP [id number] EXP=02/2021) History History 0 Para Hx # Term Pregnancies Multiple births Hx # Pregnancies Ectopic pregnancies AB induced Hx Number of Living Children AB spontaneous Meds Allergies and Home Medications Allergies Allergy/AdvReac Type Severity Reaction Status Date / Time No Known Allergies Allergy Verified 09/27/21 19:35 Home Medications Medication Instructions Recorded Confirmed Type Chewable Multi Vitamin 1 tab PO DAILY PRN PRN 10/29/14 09/27/21 History Aerochamber Plus Flow-Vu #1 script 05/16/16 09/27/21 History albuterol sulfate [ProAir HFA] 2 puff INHALATION ONCE #1 inhaler 05/15/17 09/27/21 History loratadine 10 mg tablet 10 mg PO DAILY 01/12/19 09/27/21 History levonorgestrel 1 device IY ONCE 04/30/19 09/27/21 History ibuprofen 600 mg tablet 600 mg PO Q6H PRN #60 tab 09/25/21 09/27/21 Rx fluticasone propionate [Flonase 1 spray INTRANASAL PRN PRN 09/27/21 09/27/21 History Allergy Relief] Exam Const General: cooperative, comfortable and no acute distress [facility] Head: normocephalic and atraumatic Eyes Pupils: PERRL Resp Effort & Inspection: normal respiratory effort Auscultation: clear to auscultation bilaterally Cardio Rate: regular rate Rhythm: regular rhythm Heart Sounds: no gallops, no murmurs and no rubs GI Inspection: normal to inspection and non-distended Palpation: soft, no hepatosplenomegaly and tender (mild tenderness lower abdomen, moderate pain epigastric area >RUQ. ) with no rebound tenderness Auscultation: normal bowel sounds Results Labs Result diagrams: 09/28/21 07:11 09/28/21 07:11 Labs: Laboratory Results - last 24 hr 09/27/21 09/27/21 09/28/21 19:48 19:48 00:05 WBC 10.96 H RBC 5.01 Hgb 14.3 Hct 43.6 MCV 87.0 MCH 28.5 MCHC 32.8 RDW 11.9 Plt Count 316 MPV 9.1 Immature Gran % 0.2 Neutrophils % 64.6 Lymphocytes % 25.3 Monocytes % 7.8 Eosinophils % 1.6 Basophils % 0.5 Nucleated RBC % 0 Absolute Neutrophils 7.08 H Absolute Lymphocytes 2.77 Absolute Monocytes 0.85 H Absolute Eosinophils 0.18 Absolute Basophils 0.05 Sodium 139 Potassium 3.6 Chloride 105 Carbon Dioxide 25.9 Anion Gap 8.1 BUN 12 Creatinine 0.7 Estimated GFR/1.73 m2 >= 60.00 Glucose 115 H Calcium 8.9 Total Bilirubin 0.3 AST 12 L ALT 14 Alkaline Phosphatase 88 Total Protein 7.5 Albumin 4.0 Lipase 93 COVID-19 Source Nasal/Nares SARS-CoV-2 (PCR) Negative 09/28/21 09/28/21 07:11 07:11 WBC 9.26 RBC 4.77 Hgb 13.3 Hct 41.5 MCV 87.0 MCH 27.9 MCHC 32.0 RDW 11.9 Plt Count 282 MPV 9.4 Immature Gran % 0.2 Neutrophils % 58.9 Lymphocytes % 29.5 Monocytes % 9.9 Eosinophils % 1.3 Basophils % 0.2 Nucleated RBC % 0 Absolute Neutrophils 5.45 Absolute Lymphocytes 2.73 Absolute Monocytes 0.92 H Absolute Eosinophils 0.12 Absolute Basophils 0.02 Sodium 140 Potassium 4.2 Chloride 105 Carbon Dioxide 29.8 Anion Gap 5.2 BUN 12 Creatinine 0.7 Estimated GFR/1.73 m2 >= 60.00 Glucose 85 Calcium 8.6 Total Bilirubin 0.3 AST 14 L ALT 15 Alkaline Phosphatase 80 Total Protein 6.8 Albumin 3.6 Lipase COVID-19 Source SARS-CoV-2 (PCR) Last Vital Signs Temp 97.5 F L 09/28/21 07:00 Pulse 77 09/28/21 07:00 Resp 16 09/28/21 07:00 BP 129/73 09/28/21 07:00 Pulse Ox 98 09/28/21 07:00
--- NOTE | 2021-09-28 13:23 | ANES.PREOP_ITS ---
General Info Date of Service Date Performed: 09/28/21 Height: 5 ft 9 in Weight: 70.6 kg Body Mass Index (BMI): 22.9 Surgical Procedure: Operation Date: 09/28/21 15:35 Proposed Procedures Side Surgeon p Gastroscopy Mitzy Reza MD Meds Allergies and Home Medications Allergies Allergy/AdvReac Type Severity Reaction Status Date / Time No Known Allergies Allergy Verified 09/27/21 19:35 Home Medication Medication Instructions Recorded Chewable Multi Vitamin 1 tab PO DAILY PRN PRN 10/29/14 Aerochamber Plus Flow-Vu #1 script 05/16/16 albuterol sulfate [ProAir HFA] 2 puff INHALATION ONCE #1 inhaler 05/15/17 loratadine 10 mg tablet 10 mg PO DAILY 01/12/19 levonorgestrel 1 device IY ONCE 04/30/19 ibuprofen 600 mg tablet 600 mg PO Q6H PRN #60 tab 09/25/21 fluticasone propionate [Flonase 1 spray INTRANASAL PRN PRN 09/27/21 Allergy Relief] Current Visit Medications: Current Medications Generic Name Dose Route Start Last Admin Trade Name Freq PRN Reason Stop Dose Admin Dimethicone/Zinc Oxide 0 gm 09/27/21 23:42 Emma Protect Cream 142 Gm Tube TP PRN PRN Hydromorphone HCl 0.5 mg 09/27/21 23:17 09/27/21 23:28 Hydromorphone 2 Mg/Ml Vial IVP 0.5 ml Q4H PRN PRN Administration Sodium Chloride 500 mls @ 0 mls/hr 09/27/21 19:40 Saline 500ml Bag IV PRN PRN As Directed Ringer's Solution 1,000 mls @ 125 mls/hr 09/27/21 23:45 09/28/21 08:53 IV 125 mls/hr INFUSION MCKINLEY Administration Acetaminophen 1,000 mg in 100 mls @ 400 mls/hr 09/27/21 23:50 Ofirmev IVPB Q8H PRN PRN IV Miscellaneous Supplies 1 each 09/27/21 19:45 Iv Access IV DIRECTED MCKINLEY Ketorolac Tromethamine 15 mg 09/27/21 23:49 09/28/21 02:13 Ketorolac 15 Mg/Ml Vial IVP 10/02/21 23:48 15 mg Q6H PRN PRN Administration Ondansetron HCl 4 mg 09/27/21 23:48 Ondansetron 4 Mg/2 Ml Vial IVP Q6H PRN PRN Pantoprazole Sodium 40 mg 09/28/21 08:30 09/28/21 09:19 Pantoprazole 40 Mg Vial IVP 40 mg DAILY MCKINLEY Administration Sodium Chloride 0 ml 09/27/21 19:40 09/28/21 09:20 Normal Saline Flush 10 Ml Syr IVP 20 ml PRN PRN Administration PFSH Active Problems Active Problems: Problem Status Onset Code IUD (intrauterine device) in place Z97.5 Pelvic pain R10.2 Hemorrhagic cyst Abdominal pain R10.9 Mild intermittent asthma Dysmenorrhea in adolescent 08/27/17 N94.6 Menorrhagia with regular cycle 08/27/17 N92.0 Medical History Medical History (Updated 09/28/21 @ 10:36 by Mitzy Reza MD) Fracture of phalanx of right index finger Plica syndrome, left knee Surgical History Surgical History Arthroplasty of knee Tobacco Smoking/Tobacco Use Status: Never Alcohol Alcohol Intake: current Alcohol intake frequency: a few times a month Substance Use Substance use: Never Substance use type: does not use Details: tried marinjuana 1 time only Prental History History 0 Para Hx # Term Pregnancies Multiple births Hx # Pregnancies Ectopic pregnancies AB induced Hx Number of Living Children AB spontaneous Vital Signs and Lab Results Vital Signs Most Recent Vital Signs in EMR: Most Recent Vital Signs Temp Pulse Resp BP Pulse Ox 36.4 C L 77 16 129/73 98 09/28/21 07:00 09/28/21 07:00 09/28/21 07:00 09/28/21 07:00 09/28/21 07:00 Lab Results Result Diagrams: 09/28/21 07:11 09/28/21 07:11 Blood Type / Crossmatch: No Data to Display Complete Blood Count: White Blood Count 9.26 10^3/uL (4.4-10.8) 09/28/21 07:11 09/28/21 Red Blood Count 4.77 10^6/uL (3.93-5.22) 09/28/21 07:11 09/28/21 Hemoglobin 13.3 g/dL (11.2-15.7) 09/28/21 07:11 09/28/21 Hematocrit 41.5 % (36.0-46.0) 09/28/21 07:11 09/28/21 Platelet Count 282 10^3/uL (130-400) 09/28/21 07:11 09/28/21 Complete Metabolic Panel: Sodium Level 140 mmol/L (136-145) 09/28/21 07:11 09/28/21 Potassium Level 4.2 mmol/L (3.5-5.1) 09/28/21 07:11 09/28/21 Chloride Level 105 mmol/L (98-107) 09/28/21 07:11 09/28/21 Carbon Dioxide Level 29.8 mmol/L (21.0-32.0) 09/28/21 07:11 09/28/21 Blood Urea Nitrogen 12 mg/dL (7-18) 09/28/21 07:11 09/28/21 Creatinine 0.7 mg/dL (0.55-1.02) 09/28/21 07:11 09/28/21 Estimated GFR/1.73 m2 >= 60.00 (mL/min/1.73m2) 09/28/21 07:11 09/28/21 Calcium Level 8.6 mg/dL (8.5-10.1) 09/28/21 07:11 09/28/21 Albumin 3.6 g/dL (3.4-5.0) 09/28/21 07:11 09/28/21 Glucose Level 85 mg/dL (74-106) 09/28/21 07:11 09/28/21 Liver Function Panel: Alanine Aminotransferase (ALT/SGPT) 15 U/L (14-59) 09/28/21 07:11 09/28/21 Aspartate Amino Transf (AST/SGOT) 14 U/L (15-37) L 09/28/21 07:11 09/07 12/25 Coagulation Panel: No Data to Display Cardiac Panel: No Data to Display Arterial Blood Gas: No Data to Display Venous Blood Gas: No Data to Display Pancreas Panel: Lipase 93 U/L (73-393) 09/27/21 19:48 09/27/21 Thyroid Panel: No Data to Display Infectious Disease: Coronavirus (COVID-19)(PCR) Negative (Negative) 09/28/21 00:05 09/28/21 Coronavirus 2019 Source Nasal/Nares 09/28/21 00:05 09/28/21 Neisseria gonorrhoeae DNA Probe Negative (Negative) 09/24/21 15:52 09/24/21 Blood Cultures: No Data to Display Toxicology Panel: No Data to Display Panel: No Data to Display Anesthesia Assessment and Plan Anesthesia History Personal History: No History of Anesthesia Complications Family History: No Family History of Anesthesia Complications Exercise Tolerance Exercise Tolerance: Metabolic Equivalents>4 Cardiac & Pulmonary Exam Cardiac Exam: Normal S1/S2 Heart Sounds Pulmonary Exam: Clear Bilateral Breath Sounds Implantable Cardiac Device Does patient have a Pacemaker or an ICD?: No Airway Exam Known Difficult Airway: No Mallampati Class: 1 Mouth Opening: Normal (> 3cm) Thyromental Distance: Greater than 3 cm Neck Range of Motion: Full ROM Neck Circumference: Normal Teeth Condition: Normal Dentition ASA Classification ASA Score: ASA 2 Emergency Case?: No NPO Status NPO Status: NPO Clears >2 hours, Solids >8 hours Status Status: Negative HCG Anesthesia Plan Resuscitation Status: Full Code Anesthesia Technique: General Anesthesia Airway Planned: Natural Airway Monitors Used: Standard Monitors Preoperative Comments:: 21 yo female presented to the ED with abdominal pain, ? PUD, plan for EGD. Has received ketorolac/hydromorphone for pain, pantoprazole/famotidine/sucralfate. Sig PMHx: never smoker, occ EtOH, Previous Anes: LMA 4.
[2021-09-28 13:31] VITALS: BMI 22.9
--- NOTE | 2021-09-28 14:24 | STOM_PTH ---
PATIENT: Lola Escoto LOC: [facility]#:[id number] AGE/SX: 21/F ROOM: RE09/27/[address]: Mitzy Reza MD : 2000 BED: A DIS: 09/28/2021 SPEC #: [id number] RECD: 09/28/21 16:53 STATUS: DONI REQ #: [id number] SKY: 09/28/21 14:[address]: Mitzy Reza DEPT: Surgical Specimen RECD BY: Padmaja Nielsen ENTERED: 09/28/21 16:54 SP TYPE: STOMACH OTHR DR: Avelina Yañez Tissues: 1 - STOMACH BIOPSY 2 - ESOPHAGUS BIOPSY Procedures: GROSS AND MICRO LEVEL 4 IMMUNOPEROXIDASE STAIN Comments: [id number]
--- NOTE | 2021-09-28 14:43 | ENDO_ITS ---
Date of service: 09/28/21 Time of Service: 14:43 Endoscopy Report DATE OF PROCEDURE: 09/28/21 PRE-OP DIAGNOSIS: Abdominal pain POST-OP DIAGNOSIS: other (Gastritis) PROCEDURE: EGD with biopsies SURGEON: Mitzy Reza ANESTHESIA TYPE: General:No Airway ESTIMATED BLOOD LOSS: 3 PATHOLOGY: other (Gastric bx, GE junction bx) COMPLICATIONS: None DISPOSITION: floor INDICATIONS: Upper abdoominal pain, epigastric >RUQ. CT scan and US negative for Gallbladder pathology. Exam and history more consistent with PUD Will try another GI Cocktail. If any improvement then will D/C of Omeprazole 40 mg BID and Carafate. If no improvement will schedule for EGD today. Risks, benefits and complications were reviewed. Complications include but are not limited to bleeding, perforation, sore throat, aspiration. Questions were entertained and answered to her satisfaction and she wished to proceed. No guarantees were given or implied. FINDINGS: mild inflammation of the stomach PROCEDURE DESCRIPTION: After informed consent was obtained the patient was take to the procedure room and placed in a supine position. Monitors were applied and a time out was done. The patients name, date of , procedure type, allergies to medications and metal in their body was reviewed. A bite block was placed and the patient was sedated. Once sedated and comfortable the gastroscope was advanced through the oropharynx which was grossly normal into the esophagus. The proximal and mid- esophagus were normal. In the distal esophagus there was mild inflammation noted. The scope was advanced into the stomach and through the pylorus into the 3rd portion of the duodenum. The duodenum was noted to be normal. The scope was retracted back into the stomach and biopsies were done to rule out H. pylori. There were no ulcers, but there was mild inflammation throughout. The scope was retroflexed. The cardia and fundus were noted to be normal. There was no hiatal hernia noted. The scope was retracted back into the esophagus and biopsies were done of the GE junction to rule out Diaz's. The Z line was regular. The GE junction was at 43 cm. The scope was removed and the patient was woken up and taken back to [facility] in stable condition. Follow up: 2-3 weeks in the office
--- NOTE | 2021-09-28 14:49 | DSE_ITS ---
Date of service: 09/28/21 Time of Service: 15:48 DS: Diagnosis Discharge Diagnosis (1) Abdominal pain: Status: Acute (2) Gastritis: Status: Acute Discharge Plan Disposition Patient Disposition: HOME Condition: Improving Discharge Details Reason For Visit: abdominal pain Admit Date/Time: 09/27/21 23:42 Admit Provider: Mitzy Reza Attending Provider: Mitzy Reza Primary Care Provider: Avelina Yañez Hospital Course Hospital Course: Lola is a pleasant 21 year old female who was admitted at midnight with upper abdominal pain. her labs were normal as was her CT scan. US of the abdomen was done today and it was normal. EGD was performed and she was noted to have mild inflammation of the stomach. She was given a diet which she tolerated and placed on Carafate and Omeprazole BID. She will be discharged home with a Rx for Carafate and Omeprazole. Follow up appointment in 2-3 weeks. If no improvement in symptoms then will order a HIDA scan with [facility] Home Meds and New Rx's Prescriptions: New sucralfate [Carafate] 1 gram tablet 1 g PO TID 14 Days Qty: 42 RF: 0 omeprazole 40 mg capsule,delayed release(DR/EC) 40 mg PO DAILY Qty: 30 RF: 2 Continued loratadine [Claritin] 10 mg tablet 10 mg PO DAILY RF: 0 ibuprofen 600 mg tablet 600 mg PO Q6H PRN (Reason: pain) Qty: 60 RF: 5 Kyleena 17.5 mcg/24 hrs (5 yrs) 19.5 mg intrauterine device 1 device IY ONCE RF: 0 (DME) Aerochamber Plus Flow-Vu 1 EACH spacer 1 ea Miscellaneous PRN Qty: 1 RF: 1 albuterol sulfate [ProAir HFA] 8.5 GM HFA aerosol inhaler 2 puff Inhalation ONCE Qty: 1 RF: 1 Chewable Multi Vitamin 1 EACH tablet,chewable 1 tab PO DAILY PRN PRNRF: 0 fluticasone propionate [Flonase Allergy Relief] 50 mcg/actuation [place],Suspension 1 spray INTRANASAL PRN PRNRF: 0 Discharge Instructions Instructions: Gastritis (DC), Diet for Stomach Ulcers and Gastritis (ED) Referrals: Paige Morgan DO [OSTEOPATHIC DOCTOR] - 10/12/21 1:00 pm Activity:: Activity as Tolerated Equipment/Supplies:: No Equipment Needed Diet:: low acid Discharge Orders Discharge Orders: Discharge Order (Routine); Ordered 09/28/21 Ordered By: Mitzy Reza DS: Summary Time Spent with Patient providing and/or coordinating discharge services: Less than 30 minutes Status at Discharge Functional status at discharge: independent ambulation Overall status at discharge: patient is back to baseline Mental Status: mental status grossly normal Speech and Movement: speech and movement normal Mood: congruent mood Affect: normal affect Exam GI Inspection: normal to inspection Palpation: soft, no hepatosplenomegaly and tender (mild upper and lower) Auscultation: normal bowel sounds Psych Mental Status: mental status grossly normal Speech and Movement: speech and movement normal Mood: congruent mood Affect: normal affect DS: Data Vitals/I&O Vitals and I&O: Vital Signs Temperature 97.5 F L 09/28/21 07:00 Temperature Source Tympanic 09/28/21 07:00 Pulse 77 09/28/21 07:00 Pulse Rhythm Regular 09/28/21 07:25 Respiratory Rate 16 09/28/21 07:00 Respiratory Effort Non-Labored 09/28/21 07:25 Respiratory Depth Normal 09/28/21 07:25 Respiratory Pattern Normal 09/28/21 07:25 Blood Pressure 129/73 09/28/21 07:00 Pulse Oximetry 98 09/28/21 07:00 Oxygen Delivery Method Room Air 09/28/21 07:00 Oxygen Flow Rate 0 09/28/21 07:00 Pain Level 6 09/28/21 09:19 Intake & Output 09/27/21 09/28/21 09/28/21 23:59 11:59 23:59 Intake Total 987.083 / 987.083 Output Total 200 / 200 Balance 787.083 / 787.083 Weight 155 lb 10.342 oz 155 lb 10.342 oz Intake: IV 987.083 / 987.083 Output: Urine 200 / 200 Other: Urine Color Yellow Urine Appearance Clear Urine Odor Normal Comment Per patient she has been voiding Stool Size Moderate Stool Characteristics Formed Voiding Methods Toilet Data Completed and Pending Labs on day of discharge: Labs from last 24 hours 09/28/21 09/28/21 09/28/21 07:11 07:11 00:05 WBC 9.26 RBC 4.77 Hgb 13.3 Hct 41.5 MCV 87.0 MCH 27.9 MCHC 32.0 RDW 11.9 Plt Count 282 MPV 9.4 Immature Gran % 0.2 Neutrophils % 58.9 Lymphocytes % 29.5 Monocytes % 9.9 Eosinophils % 1.3 Basophils % 0.2 Nucleated RBC % 0 Absolute Neutrophils 5.45 Absolute Lymphocytes 2.73 Absolute Monocytes 0.92 H Absolute Eosinophils 0.12 Absolute Basophils 0.02 Sodium 140 Potassium 4.2 Chloride 105 Carbon Dioxide 29.8 Anion Gap 5.2 BUN 12 Creatinine 0.7 Estimated GFR/1.73 m2 >= 60.00 Glucose 85 Calcium 8.6 Total Bilirubin 0.3 AST 14 L ALT 15 Alkaline Phosphatase 80 Total Protein 6.8 Albumin 3.6 Lipase COVID-19 Source Nasal/Nares SARS-CoV-2 (PCR) Negative 09/27/21 09/27/21 19:48 19:48 WBC 10.96 H RBC 5.01 Hgb 14.3 Hct 43.6 MCV 87.0 MCH 28.5 MCHC 32.8 RDW 11.9 Plt Count 316 MPV 9.1 Immature Gran % 0.2 Neutrophils % 64.6 Lymphocytes % 25.3 Monocytes % 7.8 Eosinophils % 1.6 Basophils % 0.5 Nucleated RBC % 0 Absolute Neutrophils 7.08 H Absolute Lymphocytes 2.77 Absolute Monocytes 0.85 H Absolute Eosinophils 0.18 Absolute Basophils 0.05 Sodium 139 Potassium 3.6 Chloride 105 Carbon Dioxide 25.9 Anion Gap 8.1 BUN 12 Creatinine 0.7 Estimated GFR/1.73 m2 >= 60.00 Glucose 115 H Calcium 8.9 Total Bilirubin 0.3 AST 12 L ALT 14 Alkaline Phosphatase 88 Total Protein 7.5 Albumin 4.0 Lipase 93 COVID-19 Source SARS-CoV-2 (PCR) PFSH All Active Problems Gastritis (Acute) IUD (intrauterine device) in place (Acute) Pelvic pain (Acute) Hemorrhagic cyst (Acute) Abdominal pain (Acute) Mild intermittent asthma (Acute) Dysmenorrhea in adolescent (Acute 08/27/17) Menorrhagia with regular cycle (Acute 08/27/17) Medical History Fracture of phalanx of right index finger Plica syndrome, left knee Surgical History Arthroplasty of knee Family History Mother No problems noted. 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
--- NOTE | 2021-09-28 15:01 | CMDISCH_ITS ---
- If Service Date Differs Date of service: 09/28/21 Time of Service: 15:01 LACE Index Scoring Tool - Questions: Length of Stay (in days): 1 Acuity (Admit via E.D.?): Yes E.D. Visits: 3 - Answers: Total Score: 7 Risk of Readmission: Low Risk Care Management Discharge Reason for Hospitalization: Right Upper Quadrant Pain Discharge Plan: Discharge home with new RX's for Carafate and Omeprazole via private vehicle with family. Follow up with community providers and discharge pl an of care as prescibed. Patient/Family Education Needs: Review discharge instructions, limitations, medications and plan to follow up with community providers. ask me three.
--- NOTE | 2021-09-28 15:07 | W.ANESPOSTOP ---
Postoperative Evaluation Date, Time and Location Date Performed: 09/28/21 Time Performed: 15:07 Patient Location: Med/Surg Vital Signs Most Recent Imported Vital Signs: Most Recent Vital Signs Temp Pulse Resp BP Pulse Ox 36.4 C L 77 16 129/73 98 09/28/21 07:00 09/28/21 07:00 09/28/21 07:00 09/28/21 07:00 09/28/21 07:00 Most Recent Manually Entered Vital Signs: Adult Blood Pressure: 126/81 Heart Rate: 88 Respirations: 18 Oxygen Saturation (%): 100 Temperature (C): 36.3 C Pain Score (0-10 Scale): 0 Pain Score Most Recent Pain Score: Most Recent Pain Score Pain Level 6 09/28/21 09:19 Assessment Mental Status: Awake (Alert & Oriented to Patient Baseline) Airway and Respiratory Function: Patent airway with normal (patient baseline) respiratory exam Cardiovascular Function: Hemodynamically Stable Hydration Status: Adequately Hydrated Nausea & Vomiting: No Nausea or Vomiting Pain: Pt. Denies Any Pain Peripheral Nerve Block: Patient did not receive a nerve block
[2021-09-28 15:08] VITALS: BP 126/81; PULSE 88; RESP 18; TEMPC 36.3; O2SAT 100
== END 2021-09-28 17:05 | disposition home or self-care (01) ==
LOC: ER 09-28 00:45 → MS 09-28 00:47
PROVIDERS: Admitting Provider Surgery; Emergency Provider Nurse Practitioner Acute Care; PCP Nurse Practitioner Family; Visit Provider Surgery
PROC: 0DJ68ZZ Inspection of Stomach, Via Natural or Artificial Opening Endoscopic (ICD-10-PCS; CPT 43235; principal; 2021-09-28 15:30)
DX: K29.50 Unspecified chronic gastritis without bleeding (principal); J45.20 Mild intermittent asthma, uncomplicated; Z20.822 Contact with and (suspected) exposure to COVID-19; Z79.899 Other long term (current) drug therapy; N92.0 Excessive and frequent menstruation with regular cycle
CPT/HCPCS: 43239; 36415; 80053; 83690; 87635; 88305; 96374; 96375; 99285; 74177; 76700; 85025; 88361; G0378; J1885; J3490

== ENCOUNTER 2021-10-10 21:15 | Emergency (ER) | payer MEDICAID, SELFPAY ==
--- NOTE | 2021-10-10 21:15 | RT.EKG_ITS ---
APPROVED REPORT Exam: Resting ECG Reason for Exam: epigastric pain Patient Location: E HR:83 bpm ECG Measurements Heart Rate 83 AXIS UT 155 P 66 QRSd 114 QRS 67 QT 367 T 45 QTc 431 Conclusion Sinus rhythm...normal P axis, V-rate 60- 99 Incomplete right bundle branch block...QRSd >112, terminal axis(90,270)
[2021-10-10 21:19] VITALS: BP 130/78; PULSE 94; RESP 18; TEMP 36.5; O2SAT 96
--- NOTE | 2021-10-10 21:30 | W.ED.GENAD ---
Discharge Plan Disposition Patient Disposition: HOME Condition: Stable Discharge Details Clinical Impression: Abdominal pain Primary Care Provider: Avelina Yañez ED Provider: Sidney Reyes Home Meds and New Rx's Prescriptions: New ondansetron 4 mg tablet,disintegrating 4 mg PO Q8H PRN (Reason: nausea and vomiting) Qty: 30 RF: 0 Continued loratadine [Claritin] 10 mg tablet 10 mg PO DAILY RF: 0 ibuprofen 600 mg tablet 600 mg PO Q6H PRN (Reason: pain) Qty: 60 RF: 5 Kyleena 17.5 mcg/24 hrs (5 yrs) 19.5 mg intrauterine device 1 device IY ONCE RF: 0 (DME) Aerochamber Plus Flow-Vu 1 EACH spacer 1 ea Miscellaneous PRN Qty: 1 RF: 1 albuterol sulfate [ProAir HFA] 8.5 GM HFA aerosol inhaler 2 puff Inhalation ONCE Qty: 1 RF: 1 Chewable Multi Vitamin 1 EACH tablet,chewable 1 tab PO DAILY PRN PRNRF: 0 fluticasone propionate [Flonase Allergy Relief] 50 mcg/actuation [place],Suspension 1 spray INTRANASAL PRN PRNRF: 0 sucralfate [Carafate] 1 gram tablet 1 g PO TID 14 Days Qty: 42 RF: 0 omeprazole 40 mg capsule,delayed release(DR/EC) 40 mg PO DAILY Qty: 30 RF: 2 Discharge Instructions Instructions: Abdominal Pain (ED) Additional Instructions: follow up as scheduled with your surgeon as scheduled this week if you feel more ill, have persistent vomit or difficulty breathing return to the emergency department Medical Decision Making 21 yo female comes in with 2 days of abdominal pain. She has had abdominal pain intermittently for 2 weeks and has had pelvic u/s which was unremarkable, ct which was unremarkable, and u/s of the gallbladder that was unremarkable and was admitted overnight. She had an endoscopy showing gastritis no ulcer and pathology report negative for H pylori. She states for 2 days has had upper abdomen pain similar to when she was here last time. She has not had vomit, fevers, chest pain. She denies vaginal discharge or bleeding. She is stable and in no distress on exam. She localizes the pain to the upper abdomen, no lower abdomen tenderness but is tender with palpation to the luq, epigastric region and ruq. She has clear lungs, clear speech. Suspect this is gastritis given recent workups but will evaluate for possible hepatitis and pancreatitis with labs and reassess. labs show mild increase in wbc to 12 and has had this on prior labs, negative lfts still. She feels mildly better but still has pain with palpation. She would like to go home but doesn't feel she can sleep with the pain. Discussed doing another CT but given reassuring workup and recent negative ct she declines ct. She has surgery follow up in 2 days. Will provide her pain medicine so she can sleep and will discharge. Return precautions given Differential Diagnosis Differential Diagnosis: gastritis, pancreatitis, hepatitis Medical Records Medical records reviewed: Yes I reviewed the patient's medical records. Lab Data Lab results reviewed: Yes I reviewed the patient's lab results. ECG Data Attestation: I personally reviewed and interpreted this ECG (s) as follows: Prior ECG tracings: not available for review Interpretation: sinus rhythm, rate of83, no acute st t wave ischemic findings HPI General Mode of arrival: wheelchair. Date/Time Provider Initiated Documentation: 10/10/21 21:15. Limitations to Documentation: no limitations. Information obtained by: patient. History of Present Illness 21 year old F presents to the emergency department with the chief complaint of abdominal pain, described as moderate, Quality is described as stabbing and aching, Patient started experiencing this day(s) (2) and it has been constant. No relieving factors improve symptom(s), No exacerbating factors reported . Patient notes no other symptoms.. Patient did receive the following treatments prior to arrival, none Related Data Home Medications Medication Instructions Recorded Confirmed Chewable Multi Vitamin 1 tab PO DAILY PRN PRN 10/29/14 10/10/21 Aerochamber Plus Flow-Vu #1 script 05/16/16 10/10/21 albuterol sulfate [ProAir HFA] 2 puff INHALATION ONCE #1 inhaler 05/15/17 10/10/21 loratadine 10 mg tablet 10 mg PO DAILY 01/12/19 10/10/21 levonorgestrel 1 device IY ONCE 04/30/19 10/10/21 ibuprofen 600 mg tablet 600 mg PO Q6H PRN #60 tab 09/25/21 10/10/21 fluticasone propionate [Flonase 1 spray INTRANASAL PRN PRN 09/27/21 10/10/21 Allergy Relief] omeprazole 40 mg PO DAILY #30 cap 09/28/21 10/10/21 sucralfate [Carafate] 1 g PO TID 14 Days #42 tab 09/28/21 10/10/21 ondansetron 4 mg PO Q8H PRN #30 tab 10/10/21 Previous Rx's Medication Instructions Recorded ibuprofen 600 mg tablet 600 mg PO Q6H PRN #60 tab 09/25/21 omeprazole 40 mg PO DAILY #30 cap 09/28/21 sucralfate [Carafate] 1 g PO TID 14 Days #42 tab 09/28/21 ondansetron 4 mg PO Q8H PRN #30 tab 10/10/21 Allergies Allergy/AdvReac Type Severity Reaction Status Date / Time No Known Allergies Allergy Verified 10/10/21 21:24 General Stated Complaint: Abd Prob KAYLI: 3 Review of Systems All systems reviewed & are unremarkable except as noted in HPI and below Constitutional Constitutional: Denies chills, Denies fever(s) and Denies weakness Cardiovascular Cardiovascular: Denies chest pain and Denies dyspnea Respiratory Respiratory: Denies cough and Denies dyspnea Gastrointestinal Gastrointestinal: Denies vomiting Musculoskeletal Musculoskeletal: Denies joint swelling Neurologic Neurologic: Denies weakness PFSH All Active Problems (Updated 10/10/21 @ 22:38 by Sidney Reyes MD) Abdominal pain (Acute) Gastritis (Acute) IUD (intrauterine device) in place (Acute) Pelvic pain (Acute) Hemorrhagic cyst (Acute) Abdominal pain (Acute) Mild intermittent asthma (Acute) Dysmenorrhea in adolescent (Acute 08/27/17) Menorrhagia with regular cycle (Acute 08/27/17) Medical History (Updated 10/10/21 @ 22:38 by Sidney Reyes MD) Fracture of phalanx of right index finger Plica syndrome, left knee Surgical History Arthroplasty of knee Family History Mother No problems noted. 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 Do you feel safe at home: Yes Do you feel safe in your relationship?: Yes Female Reproductive History Menstrual Age of Menarche: 16 control method: none and progestin IUCD (Kyleena inserted by Carson Reyes NP BMN=[id number] EXP=02/2021) History History 0 Para Hx # Term Pregnancies Multiple births Hx # Pregnancies Ectopic pregnancies AB induced Hx Number of Living Children AB spontaneous Exam Const General: no acute distress Orientation: alert HENMT Head: normal to inspection Ears: external ears normal General nose exam: external nose normal Mouth: moist mucous membranes Eyes General: appearance normal, both eyes and all related structures Neck Neck: normal visual inspection Resp Effort & Inspection: normal respiratory effort and able to speak in complete sentences Cardio Rate: regular rate GI Palpation: soft and tender Skin General skin exam: no rashes or lesions noted Neuro General: patient alert and patient oriented x3 Extrem General: normal to inspection Psych Mental Status: mental status grossly normal Course Vital Signs Vital signs: Vital Signs Temperature 36.5 C 10/10/21 21:19 Pulse 94 H 10/10/21 21:19 Respiratory Rate 18 10/10/21 21:19 Blood Pressure 130/78 10/10/21 21:19 Pulse Oximetry 96 10/10/21 21:19 Temperature 36.5 C 10/10/21 21:19 Temperature Source Skin 10/10/21 21:19 Pulse 94 H 10/10/21 21:19 Respiratory Rate 18 10/10/21 21:19 Respiratory Effort Non-Labored 10/10/21 21:24 Blood Pressure 130/78 10/10/21 21:19 Pulse Oximetry 96 10/10/21 21:19 Pain Level 8 10/10/21 21:19
[2021-10-10 22:00] LABS: Bilirubin Negative (Negative); Blood Negative (Negative); Clarity Clear (Clear); Glucose Negative (Negative); Ketones Negative (Negative); Leukocyte Esterase Negative (Negative); Nitrite Negative (Negative); Specific Gravity >= 1.030 (1.005-1.025); Urobilinogen 0.2 EU/dL (Up TO 0.2); pH 5.5 (5-8)
[2021-10-10 22:07] LABS: Abs Immature Grans 0.04 10^3/uL (0.0-0.06); Absolute Basophil Count 0.05 10^3/uL (0.0-0.2); Absolute Eosinophil Count 0.15 10^3/uL (0.0-0.7); Absolute Lymphocyte Count 2.75 10^3/uL (1.2-3.4); Absolute Monocyte Count 1.16 10^3/uL (0.1-0.8); Basophils % 0.4; Eosinophils % 1.2; HCT 40.3 % (36.0-46.0); HGB 12.8 g/dL (11.2-15.7); Immature Grans % 0.3; Lymphocytes % 22.4; MCH 27.9 pg (27.0-33.0); MCHC 31.8 % (32.0-36.0); Monocytes % 9.4; Neutrophils % 66.3; Nucleated RBC 0 %; Platelet Count 347 10^3/uL (130-400); RBC 4.58 10^6/uL (3.93-5.22); RDW 12.1 % (11.7-14.6); RDW-SD 38.9 fL; WBC 12.29 10^3/uL (4.4-10.8)
[2021-10-10] MEDS: Normal Saline 1,000 ML 1000 ML IV (22:07)
[2021-10-10 22:08] LABS: Absolute Neutrophil Count 8.15 10^3/uL (1.2-6.7)
[2021-10-10 22:28] LABS: ALT 19 U/L (14-59); AST 16 U/L (15-37); Albumin 3.8 g/dL (3.4-5.0); Alkaline Phosphatase 84 U/L (46-116); Anion Gap 7.6 mmol/L (3-11); BUN 8 mg/dL (7-18); Bilirubin, Direct 0.1 mg/dL (0.0-0.2); Bilirubin, Total 0.3 mg/dL (0.2-1.0); CO2 28.4 mmol/L (21.0-32.0); CREATININE 0.7 mg/dL (0.55-1.02); Calcium 8.7 mg/dL (8.5-10.1); Chloride 105 mmol/L (98-107); Glucose 97 mg/dL (74-106); Lipase 101 U/L (73-393); Magnesium 1.9 mg/dL (1.8-2.4); Potassium 3.6 mmol/L (3.5-5.1); Sodium 141 mmol/L (136-145); Total Protein 7.1 g/dL (6.4-8.2); Troponin I < 50 ng/L (<or=60)
[2021-10-10 22:42] VITALS: BP 114/75; PULSE 91; TEMP 36.3; O2SAT 98
[2021-10-10] MEDS: Ondansetron O.D.T. 4 MG TABEF, 3 TABS/BTL PO (22:49)
== END 2021-10-10 22:55 | disposition home or self-care (01) ==
PROVIDERS: Emergency Provider Emergency Medicine; PCP Nurse Practitioner Family
DX: R10.11 Right upper quadrant pain (principal); R10.13 Epigastric pain
CPT/HCPCS: 80053; 81025; 83690; 93005; 96360; 99284; 81003; 82248; 83735; 84484; 85025; 93010; 99283

== ENCOUNTER 2021-10-19 02:12 | Outpatient (CLI) | payer MEDICAID, SELFPAY ==
--- NOTE | 2021-10-19 06:45 | DI.NM_ITS ---
Exam(s) NM HEPATOBILIARY CCK GRP EXAM: NM HEPATOBILIARY CCK GRP CLINICAL HISTORY: abdom pain. nlEGD US,r10.9. TECHNIQUE: Injected dose: 5 mCi Tc-99 mebrofenin Initial dynamic images: 60 minutes Post-Gallbladder fillin.0 microgram CCK intravenously 15 - 45 minutes following infusion, dynamic during CCK administration. COMPARISON: US US ABDOMEN from 09/28/2021 FINDINGS: Normal hepatic transit time. Prompt excretion into the small bowel. Prompt excretion into the gallbladder. Gallbladder ejection fraction normal at 94 percent. IMPRESSION: 1. No evidence of acute cholecystitis or acalculous disease. Normal gallbladder ejection fraction. SNM guidelines: Gallbladder visualization should be present by 3 hours. Delayed [id number] pierce sit beyond 60 min raises the suspicion for partial common bile duct (CBD) obstruction. Gallbladder ejection fraction <35% has a good correlation with acalculous disease (i.e., chronic acal culous cholecystitis, cystic duct syndrome, sphincter of Oddi disease).
== END 2021-10-19 02:32 ==
PROVIDERS: PCP Nurse Practitioner Family; Visit Provider Surgery
DX: R10.9 Unspecified abdominal pain (principal)
CPT/HCPCS: 78227

== ENCOUNTER 2021-12-11 14:30 | Emergency (ER) | payer MEDICAID, SELFPAY ==
[2021-12-11 14:33] VITALS: BP 147/82; PULSE 88; RESP 16; TEMP 36.4; O2SAT 100
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
--- NOTE | 2021-12-11 15:15 | RT.EKG_ITS ---
APPROVED REPORT Exam: Resting ECG Reason for Exam: syncopal episode Patient Location: E HR:72 bpm ECG Measurements Heart Rate 72 AXIS DE 145 P 63 QRSd 104 QRS 81 QT 382 T 46 QTc 420 Conclusion Sinus rhythm...normal P axis, V-rate 60- 99. Sinus. Normal axis. No STEMI. I have reviewed and interpreted ECG and agree with software generated interpretation.
[2021-12-11 15:51] LABS: HCT 43.7 % (36.0-46.0); HGB 13.9 g/dL (11.2-15.7); MCH 28.6 pg (27.0-33.0); MCHC 31.8 % (32.0-36.0); MCV 89.9 fL (80-95); MPV 9.4 fL (8.0-11.0); Platelet Count 302 10^3/uL (130-400); RBC 4.86 10^6/uL (3.93-5.22); RDW-SD 42.6 fL; WBC 11.23 10^3/uL (4.4-10.8)
[2021-12-11] MEDS: ACETAMINOPHEN 1,000 MG/100 ML BTL 400 MG IVPB (15:54)
[2021-12-11] MEDS: Normal Saline 1,000 ML 1000 ML IV (15:54)
[2021-12-11] MEDS: diphenhydrAMINE 50 MG/ML VIAL 25 MG IVP (15:54)
[2021-12-11] MEDS: Prochlorperazine 10 MG/2 ML VIAL IVP (15:55)
[2021-12-11 16:46] LABS: ALT 92 U/L (14-59); AST 59 U/L (15-37); Albumin 2.4 g/dL (3.4-5.0); Alkaline Phosphatase 56 U/L (46-116); Anion Gap 9.9 mmol/L (3-11); BUN 5 mg/dL (7-18); Bilirubin, Total 0.2 mg/dL (0.2-1.0); CO2 22.1 mmol/L (21.0-32.0); CREATININE 0.5 mg/dL (0.55-1.02); Chloride 115 mmol/L (98-107); Glucose 58 mg/dL (74-106); Magnesium 1.5 mg/dL (1.8-2.4); Sodium 147 mmol/L (136-145); TSH (W/Ref FT4) 1.38 uIU/mL (0.36-3.74); Total Protein 4.9 g/dL (6.4-8.2)
[2021-12-11 16:48] LABS: Calcium 6.3 mg/dL (8.5-10.1); Potassium 2.7 mmol/L (3.5-5.1)
[2021-12-11] MEDS: MAGNESIUM SULFATE 2 GM/50 ML BAG IVPB (17:20)
[2021-12-11] MEDS: Normal Saline 1,000 ML 250 ML IV (17:20)
[2021-12-11] MEDS: Potassium Chloride Liquid 20 MEQ PKT 40 MEQ PO (17:20)
[2021-12-11] MEDS: POTASSIUM CHLORIDE 10 MEQ/100 ML BAG 100 MEQ IVPB (17:20)
[2021-12-11 17:41] VITALS: BP 128/69; PULSE 80; RESP 18; O2SAT 99
[2021-12-11 19:21] LABS: BUN 6 mg/dL (7-18); CO2 25.1 mmol/L (21.0-32.0); CREATININE 0.6 mg/dL (0.55-1.02); Calcium 7.6 mg/dL (8.5-10.1); Chloride 110 mmol/L (98-107); Glucose 79 mg/dL (74-106)
[2021-12-11 19:28] LABS: Anion Gap 6.9 mmol/L (3-11); Sodium 142 mmol/L (136-145)
[2021-12-11 19:29] LABS: Potassium 4.2 mmol/L (3.5-5.1)
[2021-12-11] MEDS: Ondansetron O.D.T. 4 MG TABEF, 3 TABS/BTL 12 MG (19:41)
== END 2021-12-11 19:41 | disposition home or self-care (01) ==
PROVIDERS: Physician Assistant; Emergency Provider Registered Nurse Emergency; PCP Nurse Practitioner Family
DX: E87.6 Hypokalemia (principal); R51.9 Headache, unspecified; R11.2 Nausea with vomiting, unspecified
CPT/HCPCS: 80048; 80053; 81025; 85027; 93005; 96361; 96365; 96366; 96368; 96375; 99284; 70450; 83735; 84443; 93010; J0131; J0780; J1200; J3480

== ENCOUNTER 2022-03-13 19:36 | Outpatient (REF) | payer MEDICAID, SELFPAY ==
[2022-03-13 21:23] LABS: Absolute Monocyte Count 1.16 10^3/uL (0.1-0.8); HGB 13.9 g/dL (11.2-15.7); MCHC 32.3 % (32.0-36.0); MCV 87 fL (80-95); MPV 9.4 fL (8.0-11.0); Platelet Count 329 10^3/uL (130-400); RBC 4.96 10^6/uL (3.93-5.22); RDW 12.6 % (11.7-14.6); WBC 8.32 10^3/uL (4.4-10.8)
[2022-03-13 21:51] LABS: ALT 267 U/L (14-59); AST 150 U/L (15-37); Absolute Eosinophil Count 0.08 10^3/uL (0.0-0.7); Absolute Lymphocyte Count 4.33 10^3/uL (1.2-3.4); Absolute Neutrophil Count 2.75 10^3/uL (1.2-6.7); Albumin 4.1 g/dL (3.4-5.0); Alkaline Phosphatase 100 U/L (46-116); Anion Gap 10.6 mmol/L (3-11); Atypical Lymphocytes % 7; BUN 7 mg/dL (7-18); Bilirubin, Total 0.5 mg/dL (0.2-1.0); CO2 26.4 mmol/L (21.0-32.0); CREATININE 0.8 mg/dL (0.55-1.02); Calcium 9.2 mg/dL (8.5-10.1); Chloride 102 mmol/L (98-107); Diff Comment Manual Differential; Glucose 82 mg/dL (74-106); Magnesium 2.1 mg/dL (1.8-2.4); Potassium 4.2 mmol/L (3.5-5.1); RBC Morphology Normal; Sodium 139 mmol/L (136-145); TSH (W/Ref FT4) 0.82 uIU/mL (0.36-3.74); Total Protein 7.7 g/dL (6.4-8.2)
== END 2022-03-13 19:37 | disposition home or self-care (01) ==
LOC: NCHCN 19:36
PROVIDERS: PCP Nurse Practitioner Family; Visit Provider Nurse Practitioner Family
DX: F50.9 Eating disorder, unspecified (principal)
CPT/HCPCS: 80053; 83735; 84443; 85025

== ENCOUNTER 2024-02-04 12:00 | Day surgery (SDC) | payer BC, SELFPAY ==
[2024-02-04] VITALS (11 sets, daily range): BP systolic 106–174; BP diastolic 52–95; PULSE 62–100; RESP 16–24; TEMP 36.7–37.9; O2SAT 97–100; BMI 20.2
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
[2024-02-04 12:34] LABS: Bilirubin Negative (Negative); Blood Negative (Negative); Clarity Sl Cloudy (Clear); Glucose Negative (Negative); Ketones Negative (Negative); Leukocyte Esterase Trace (Negative); Nitrite Negative (Negative); Specific Gravity 1.025 (1.005-1.025); Urobilinogen 0.2 mg/dL (Up to 0.2); pH 5.5 (5-8)
[2024-02-04 12:37] LABS: Abs Immature Grans 0.02 10^3/uL (0.0-0.06); Absolute Basophil Count 0.08 10^3/uL (0.0-0.2); Absolute Eosinophil Count 0.24 10^3/uL (0.0-0.7); Absolute Lymphocyte Count 2.05 10^3/uL (1.2-3.4); Absolute Monocyte Count 1.15 10^3/uL (0.1-0.8); Absolute Neutrophil Count 5.92 10^3/uL (1.2-6.7); Basophils % 0.8; Eosinophils % 2.5; HCT 40.8 % (36.0-46.0); HGB 12.7 g/dL (11.2-15.7); Immature Grans % 0.2; Lymphocytes % 21.7; MCH 24.7 pg (27.0-33.0); MCHC 31.1 % (32.0-36.0); MCV 79 fL (80-95); MPV 8.6 fL (8.0-11.0); Monocytes % 12.2; Neutrophils % 62.6; Platelet Count 341 10^3/uL (130-400); RBC 5.14 10^6/uL (3.93-5.22); RDW 13.7 % (11.7-14.6); RDW-SD 39.8 fL; WBC 9.46 10^3/uL (4.4-10.8)
[2024-02-04 12:42] LABS: Bacteria Moderate HPF (Negative); C & S Indicated? No/Sq. Contamination; Casts Negative LPF (Negative); Crystals Negative HPF (Negative); Epithelial Cells Many HPF (Negative); Mucus Negative (Negative); RBC 0-2 HPF (0-2)
[2024-02-04] MEDS: Omnipaque 350 MG/ML 100 ML BTL IJ (12:44)
[2024-02-04] MEDS: Normal Saline - Diluent 50 ML VIAL IJ (12:45)
[2024-02-04 12:59] LABS: ALT 19 U/L (14-59); AST 14 U/L (15-37); Albumin 4.1 g/dL (3.4-5.0); Alkaline Phosphatase 46 U/L (46-116); Anion Gap 8.2 mmol/L (3-11); BUN 10 mg/dL (7-18); Bilirubin, Total 0.6 mg/dL (0.2-1.0); CO2 27.8 mmol/L (21.0-32.0); CREATININE 0.9 mg/dL (0.55-1.02); Calcium 9.4 mg/dL (8.5-10.1); Chloride 105 mmol/L (98-107); Glucose 96 mg/dL (74-106); Lipase 43 U/L (16-77); Potassium 3.5 mmol/L (3.5-5.1); Sodium 141 mmol/L (136-145); Total Protein 7.8 g/dL (6.4-8.2)
[2024-02-04] MEDS: Lactated Ringers 1,000 ML 1000 ML IV (13:05)
[2024-02-04] MEDS: Ketorolac 15 MG/ML VIAL IVP (13:07)
[2024-02-04] MEDS: Ondansetron 4 MG/2 ML VIAL IVP (13:07)
[2024-02-04] MEDS: MORPHine 4 MG/ML SYR IVP (13:07)
--- NOTE | 2024-02-04 13:31 | DI.US_ITS ---
Exam(s) US PELVIS TRANSVAGINAL EXAM: US PELVIS TRANSVAGINAL CLINICAL HISTORY: eval for torsion on left TECHNIQUE: Transabdominal and transvaginal imaging was performed using standard protocol. COMPARISON: US US PELVIS TRANSVAGINAL from 09/25/[address] ABDOMEN PELVIS W from 02/04/2024 FINDINGS: UTERUS: Anteverted. 7.5 x 3.1 x 4.6 cm Endometrium: 2 mm Myometrium: Unremarkable. Cervix: Unremarkable. OVARIES: Right: Cyst or mass: Involuting follicle Left: Cyst or mass: 5.3 x 3.3 x 5.5 centimeter circumscribed lesion with internal echoes, mildly incr eased in size from prior exam. This may represent hemorrhagic cyst versus endometrioma. No blood fl ow. DOPPLER: Color: Symmetric and uniform flow to both ovaries. No hyperemia. CUL-DE-SAC: Free fluid: None. IMPRESSION: 1. Normal-appearing uterus with endometrial stripe within normal limits. 2. Mild interval increase in size of previously noted left ovarian lesion which could represent endom etrial mole versus hemorrhagic cyst. No evidence of torsion DATA REPOSITORY:
--- NOTE | 2024-02-04 14:23 | ED.GENADUL_ITS ---
Discharge Plan Discharge Details Chief Complaint: Abd Prob Primary Care Provider: Sanam Pierce ED Provider: Darion Anaya Home Meds and New Rx's Prescriptions: No Action loratadine [Claritin] 10 mg tablet 10 mg PO PRN pantoprazole [Protonix] 40 mg tablet,delayed release (DR/EC) 40 mg PO DAILY Qty: 30 0RF (DME) Aerochamber Plus Flow-Vu 1 EACH spacer 1 ea Miscellaneous PRN Qty: 1 Rx Instructions: use with pro-air inhaler albuterol sulfate [ProAir HFA] 8.5 GM HFA aerosol inhaler 2 puff Inhalation ONCE Qty: 1 Rx Instructions: take 2 puffs (5 minutes apart) 15 minutes prior to exercise and every 4 hours as needed for wheezing/work of breathing Chewable Multi Vitamin 1 EACH tablet,chewable 1 tab PO DAILY PRN PRN fluticasone propionate [Flonase Allergy Relief] 50 mcg/actuation [place],Suspension 1 spray INTRANASAL PRN PRN ondansetron 4 mg tablet,disintegrating 4 mg PO Q8H PRN (Reason: nausea and vomiting) Qty: 30 0RF ibuprofen 200 mg Tablet 200 mg PO Q6H PRN HPI General Date/Time Provider Initiated Documentation: 02/04/24 12:13 . HPI Narrative: This is a pleasant 23-year-old female with a past medical history of asthma, suspected endometriosis, who presents today for 1 week of abdominal pain. Patient states that pain has been in the left lower quadrant for the past week, initially started in the right and then transition to the left, she been seen at her primary place of work at [employer] [facility] [facility] [place], where an ultrasound was performed and she had evidence of an ovarian cyst. The option of surgery was discussed, however the surgeon was not available at that time, she was discharged for further close outpatient management. Unfortunately her symptoms worsened over the last 24 to 48 hours. She describes the pain as severe. It is present in the left lower quadrant. She had significant pain at 3 AM last night, had vomiting, and then passed out in her bed. She woke up this morning had more vomiting and pain and came to be evaluated. She denies any history of STDs. She states that she is having irregular amounts of vaginal discharge. She denies any vaginal bleeding. No other complaints at this time. She states that the pain is constant described as [id number] and burning in her abdomen. No prior abdominal surgeries. Related Data Home Medications Medication Instructions Recorded Confirmed multivitamin (Chewable Multi 1 tab PO DAILY PRN PRN 10/29/14 02/04/24 Vitamin tablet) inhalational spacing device ##1 05/16/16 02/04/24 (Aerochamber Plus Flow-Vu) albuterol sulfate 90 mcg/actuation 2 puff inhalation ONCE ##1 05/15/17 02/04/24 aerosol inhaler (ProAir HFA) fluticasone propionate 50 1 spray intranasal PRN PRN 09/27/21 02/04/24 mcg/actuation nasal spray,suspension (Flonase Allergy Relief) ondansetron 4 mg disintegrating 4 mg PO Q8H PRN nausea and 10/10/21 02/04/24 tablet vomiting #30 tabs loratadine 10 mg tablet (Claritin) 10 mg PO PRN 10/12/21 02/04/24 pantoprazole 40 mg tablet,delayed 40 mg PO DAILY #30 tabs 10/12/21 02/04/24 release (Protonix) ibuprofen 200 mg tablet 200 mg PO Q6H PRN 12/11/21 02/04/24 Previous Rx's Medication Instructions Recorded ondansetron 4 mg disintegrating 4 mg PO Q8H PRN nausea and 10/10/21 tablet vomiting #30 tabs pantoprazole 40 mg tablet,delayed 40 mg PO DAILY #30 tabs 10/12/21 release (Protonix) Allergies Allergy/AdvReac Type Severity Reaction Status Date / Time No Known Allergies Allergy Verified 12/11/21 14:39 General Stated Complaint: Abd Prob KAYLI: 3 Review of Systems All systems reviewed & are unremarkable except as noted in HPI and below Exam Narrative Exam Narrative: 1.Const: Well-nourished, Well-developed, appearing stated age 2.Eyes: PERRL, no conjunctival injection, and symmetrical lids. 3.ENT: Atraumatic external nose and ears. Moist MM. Neck: Symmetric, trachea midline, No thyromegaly. 4.CVS: +S1/S2, No murmurs or gallops. Peripheral pulses 2+ and equal in all extremities. Brisk capillary refill in all extremities. 5.RESP: Unlabored respiratory effort. Clear to auscultation bilaterally. No wheezes rales or rhonchi 6.GI: Soft, nondistended. Generalized tenderness throughout, notably worse in the left lower and lower mid quadrants. Mild pain in the right lower quadrant. Mild voluntary guarding. No suprapubic discomfort. 7.MSK: Normocephalic/Atraumatic, Extremities w/o deformity or ttp No cyanosis or clubbing, Normal movement of all extremities 8.Skin: Warm, Dry. No rashes or lesions. 9.Neuro: clothes shaker II-XII grossly intact. Sensation grossly intact, no focal neurologic deficits. 10.Psych: (AAO) x3. Appropriate mood and affect Course Vital Signs Vital signs: Vital Signs Temperature 37.1 C 02/04/24 12:02 Pulse 100 H 02/04/24 12:02 Respiratory Rate 24 02/04/24 12:02 Blood Pressure 174/95 H 02/04/24 12:02 Pulse Oximetry 98 02/04/24 12:02 Temperature 37.1 C 02/04/24 12:02 Temperature Source Tympanic 02/04/24 12:02 Pulse 75 02/04/24 13:18 Respiratory Rate 24 02/04/24 12:02 Respiratory Effort Normal 02/04/24 13:12 Blood Pressure 142/81 H 02/04/24 13:18 Blood Pressure Mean 101 02/04/24 13:18 Blood Pressure Position Sitting 02/04/24 12:02 Pulse Oximetry 99 02/04/24 13:18 Oxygen Delivery Method Room Air 02/04/24 12:02 Oxygen Flow Rate 0 02/04/24 12:02 Pain Level 7 02/04/24 13:18 Lab/Test Results Lab/Test Results: Laboratory Tests Range/Units 02/04/24 02/04/24 02/04/24 12:11 12:25 12:30 WBC (4.4-10.8) 10^3/uL 9.46 RBC (3.93-5.22) 10^6/uL 5.14 Hgb (11.2-15.7) g/dL 12.7 Hct (36.0-46.0) % 40.8 MCV (80-95) fL 79 L MCH (27.0-33.0) pg 24.7 L MCHC (32.0-36.0) % 31.1 L RDW (11.7-14.6) % 13.7 Plt Count (130-400) 10^3/uL 341 MPV (8.0-11.0) fL 8.6 Immature Gran % 0.2 Neutrophils % 62.6 Lymphocytes % 21.7 Monocytes % 12.2 Eosinophils % 2.5 Basophils % 0.8 Nucleated RBC % (0.0-0.3) % 0.0 Absolute Neutrophils (1.2-6.7) 10^3/uL 5.92 Absolute Lymphocytes (1.2-3.4) 10^3/uL 2.05 Absolute Monocytes (0.1-0.8) 10^3/uL 1.15 H Absolute Eosinophils (0.0-0.7) 10^3/uL 0.24 Absolute Basophils (0.0-0.2) 10^3/uL 0.08 VBG Lactate (0.6-1.4) mmol/L 1.0 Sodium (136-145) mmol/L 141 Potassium (3.5-5.1) mmol/L 3.5 Chloride (98-107) mmol/L 105 Carbon Dioxide (21.0-32.0) mmol/L 27.8 Anion Gap (3-11) mmol/L 8.2 BUN (7-18) mg/dL 10 Creatinine (0.55-1.02) mg/dL 0.9 Est GFR (CKD-EPI 2020) (mL/min/1.73m2) 92.70 Glucose (74-106) mg/dL 96 Calcium (8.5-10.1) mg/dL 9.4 Total Bilirubin (0.2-1.0) mg/dL 0.6 AST (15-37) U/L 14 L ALT (14-59) U/L 19 Alkaline Phosphatase (46-116) U/L 46 Total Protein (6.4-8.2) g/dL 7.8 Albumin (3.4-5.0) g/dL 4.1 Lipase (16-77) U/L 43 Urine Color Cancelled Yellow Urine Clarity Cancelled Sl Cloudy Urine pH Cancelled 5.5 Ur Specific [place] Cancelled 1.025 Urine Protein Cancelled Negative Urine Ketones Cancelled Negative Urine Blood Cancelled Negative Urine Nitrite Cancelled Negative Urine Bilirubin Cancelled Negative Urine Urobilinogen Cancelled 0.2 Ur Leukocyte Esterase Cancelled Trace H Urine RBC (0-2) HPF 0-2 Urine WBC (0-5) HPF 5-10 Ur Epithelial Cells (Negative) HPF Many Urine Crystals (Negative) HPF Negative Urine Bacteria (Negative) HPF Moderate Urine Casts (Negative) LPF Negative Urine Mucus (Negative) Negative Ur Culture Indicated? No/Sq. Contamination Urine Glucose Cancelled Negative POC- Test(urine) Negative Medical Decision Making This is a pleasant 23-year-old female with a past medical history of asthma, suspected endometriosis, who presents today for 1 week of abdominal pain. Patient states that pain has been in the left lower quadrant for the past week, initially started in the right and then transition to the left, she been seen at her primary place of work at [facility] [place], where an ultrasound was performed and she had evidence of an ovarian cyst. The option of surgery was discussed, however the surgeon was not available at that time, she was discharged for further close outpatient management. Unfortunately her symptoms worsened over the last 24 to 48 hours. She describes the pain as severe. It is present in the left lower quadrant. She had significant pain at 3 AM last night, had vomiting, and then passed out in her bed. She woke up this morning had more vomiting and pain and came to be evaluated. She denies any history of STDs. She states that she is having irregular amounts of vaginal discharge. She denies any vaginal bleeding. No other complaints at this time. She states that the pain is constant described as [id number] and burning in her abdomen. No prior abdominal surgeries. Exam demonstrates well-appearing female with mild to moderate abdominal pain, particularly in the left lower quadrant, and lower mid quadrant. Voluntary guarding. Large ovarian cyst is certainly of concern and on the differential. Symptoms appear less consistent with ovarian torsion secondary to the constant nature of the current symptomatology. Appendicitis or diverticulitis is of concern I will also. We will start with a CT scan to evaluate for these etiologies, monitor closely and reassess. 2:[address] scan shows no evidence of acute appendicitis, there is a 5.6 cm left ovarian cyst. Ultrasound was performed and shows no signs of torsion. Patient's pain is still present. Discussed the case with obstetrics Dr. English, she agrees on the need for potential surgical removal. She came and evaluate the patient discussed it with the patient. Patient has consented to surgery. Patient will be admitted for further surgical management. I have extensively reviewed the treatment plan with the patient. I have addressed all patient concerns at this time. I have also discussed the plan with the admitting physician and they agree with the current assessment and plan and have agreed to assume responsibility for the patient. All parties demonstrate verbal understanding and agreement with our assessment and plan at this time. The documentation in this chart was dictated using [employer] dictation software. Please excuse any dictation errors. FINDINGS: ABDOMEN and PELVIS: Lung Bases: No acute findings. Liver: Normal density. No measurable mass. Gallbladder and biliary tract: No radiodense calculus or biliary dilation. Pancreas: Normal density. No abnormal calcifications or inflammatory process. No evidence of mass. Spleen: Normal. Kidneys: Normal size, contour and axis. No radiodense stones. No obstructive uropathy. No suspicious masses seen. Adrenal glands: No masses seen. Vasculature: Abdominal aorta non-dilated. Soft tissues: Unremarkable. Bladder: No gross wall thickening. No calculi.No focal mass. Bowel: No obstruction. No bowel wall thickening. Appendix normal. Peritoneal cavity: No ascites. No focal collection or mesenteric inflammatory response. Bones: Unremarkable for age. Reproductive organs: 4.4 by 5.6 by 3.6 centimeter simple cyst of the left ovary. Lymph nodes: Unremarkable. IMPRESSION:: 5.6 centimeter left ovarian cyst. The appendix is normal. Quality:SDOH Health Related Social Needs: No Data to Display PFSH All Active Problems Cyst of vagina (Acute) Dysmenorrhea (Acute) Encounter for IUD removal (Acute) Diarrhea, functional (Acute) Postprandial RUQ pain (Acute) Abdominal pain (Acute) Gastritis (Acute) IUD (intrauterine device) in place (Acute) Pelvic pain (Acute) Hemorrhagic cyst (Acute) Abdominal pain (Acute) Mild intermittent asthma (Acute) Dysmenorrhea in adolescent (Acute 08/27/17) Menorrhagia with regular cycle (Acute 08/27/17) Medical History Plica syndrome, left knee Fracture of phalanx of right index finger Surgical History History of esophagogastroduodenoscopy (EGD) (~09/2021) Arthroplasty of knee Family History Mother No problems noted. 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
--- NOTE | 2024-02-04 15:19 | ANES.PREOP_ITS ---
General Info Date of Service Date Performed: 02/04/24 Height: 5 ft 9 in Weight: 62.142 kg Body Mass Index (BMI): 20.2 Surgical Procedure: Operation Date: 02/04/24 15:25 Proposed Procedure Side Surgeon p Diagnostic Laparoscopy, Ovarian Cystectomy Summer English MD Actual Procedure Side Surgeon p Diagnostic Laparoscopy, Ovarian Cystectomy Summer English MD Pre-Op Diagnosis Post-Op Diagnosis Ovarian Cyst Meds Allergies and Home Medications Allergies Allergy/AdvReac Type Severity Reaction Status Date / Time No Known Allergies Allergy Verified 12/11/21 14:39 Home Medication Medication Instructions Recorded multivitamin (Chewable Multi 1 tab PO DAILY PRN PRN 10/29/14 Vitamin tablet) inhalational spacing device ##1 05/16/16 (Aerochamber Plus Flow-Vu) albuterol sulfate 90 mcg/actuation 2 puff inhalation ONCE ##1 05/15/17 aerosol inhaler (ProAir HFA) fluticasone propionate 50 1 spray intranasal PRN PRN 09/27/ mcg/actuation nasal spray,suspension (Flonase Allergy Relief) ondansetron 4 mg disintegrating 4 mg PO Q8H PRN nausea and 10/10/21 tablet vomiting #30 tabs loratadine 10 mg tablet (Claritin) 10 mg PO PRN 10/12/21 pantoprazole 40 mg tablet,delayed 40 mg PO DAILY #30 tabs 10/12/21 release (Protonix) ibuprofen 200 mg tablet 200 mg PO Q6H PRN 12/11/21 Current Visit Medications: Current Medications Generic Name Dose Route Start Last Admin Trade Name Freq PRN Reason Stop Dose Admin Iohexol 100 ml 02/04/24 12:45 02/04/24 12:44 Omnipaque 350 Mg/Ml 100 Ml Btl IJ 03/05/24 23:59 89 ml DIRECTED MCKINLEY Administration Sodium Chloride 50 ml 02/04/24 12:45 02/04/24 12:45 Normal Saline - Diluent 50 Ml Vial IJ 50 ml .FOR DI USE MCKINLEY Administration PFSH Active Problems Active Problems: Problem Status Onset Code Cyst of vagina N89.8 Dysmenorrhea N94.6 Encounter for IUD removal Z30.432 Diarrhea, functional K59.1 Postprandial RUQ pain R10.11 Abdominal pain R10.9 Gastritis K29.70 IUD (intrauterine device) in place Z97.5 Pelvic pain R10.2 Hemorrhagic cyst Abdominal pain R10.9 Mild intermittent asthma Dysmenorrhea in adolescent 08/27/17 N94.6 Menorrhagia with regular cycle 08/27/17 N92.0 Medical History Medical History Plica syndrome, left knee Fracture of phalanx of right index finger Surgical History Surgical History History of esophagogastroduodenoscopy (EGD) (~09/2021) Arthroplasty of knee Tobacco Smoking/Tobacco Use Status: Never Alcohol Alcohol Intake: current Alcohol intake frequency: a few times a month Substance Use Substance use: Occasionally Substance use type: marijuana Prental History History 2 0 Para Hx # Term Pregnancies Multiple births Hx # Pregnancies Ectopic pregnancies AB induced Hx Number of Living Children AB spontaneous Vital Signs and Lab Results Vital Signs Most Recent Vital Signs in EMR: Most Recent Vital Signs Temp Pulse Resp BP Pulse Ox 37.1 C 75 24 142/81 H 99 02/04/24 12:02 02/04/24 13:18 02/04/24 12:02 02/04/24 13:18 02/04/24 13:18 Point of Care Results Point of Care Results: POC- Test(urine) Negative 02/04/24 12:28 Lab Results 02/04/24 12:30 02/04/24 12:30 Blood Type / Crossmatch: 2 No Data to Display Complete Blood Count: 2 White Blood Count 9.46 10^3/uL (4.4-10.8) 02/04/24 12:30 Red Blood Count 5.14 10^6/uL (3.93-5.22) 02/04/24 12:30 Hemoglobin 12.7 g/dL (11.2-15.7) 02/04/24 12:30 Hematocrit 40.8 % (36.0-46.0) 02/04/24 12:30 Platelet Count 341 10^3/uL (130-400) 02/04/24 12:30 Venous Blood Lactate 1.0 mmol/L (0.6-1.4) 02/04/24 12:30 Complete Metabolic Panel: 2 Sodium 141 mmol/L (136-145) 02/04/24 12:30 Potassium 3.5 mmol/L (3.5-5.1) 02/04/24 12:30 Chloride 105 mmol/L (98-107) 02/04/24 12:30 Carbon Dioxide 27.8 mmol/L (21.0-32.0) 02/04/24 12:30 BUN 10 mg/dL (7-18) 02/04/24 12:30 Creatinine 0.9 mg/dL (0.55-1.02) 02/04/24 12:30 Est GFR (CKD-EPI 2020) 92.70 (mL/min/1.73m2) 02/04/24 12:30 Calcium 9.4 mg/dL (8.5-10.1) 02/04/24 12:30 Albumin 4.1 g/dL (3.4-5.0) 02/04/24 12:30 Glucose 96 mg/dL (74-106) 02/04/24 12:30 Liver Function Panel: 2 Alanine Aminotransferase (ALT/SGPT) 19 U/L (14-59) 02/04/24 12: 30 Aspartate Amino Transf (AST/SGOT) 14 U/L (15-37) L 02/04/24 12: 30 Coagulation Panel: 2 No Data to Display Cardiac Panel: 2 No Data to Display Arterial Blood Gas: 2 No Data to Display Venous Blood Gas: 2 No Data to Display Pancreas Panel: 2 Lipase 43 U/L (16-77) 02/04/24 12:30 Thyroid Panel: 2 No Data to Display Infectious Disease: 2 No Data to Display Blood Cultures: 2 No Data to Display Toxicology Panel: 2 No Data to Display Panel: 2 No Data to Display Anesthesia Assessment and Plan Anesthesia History Personal History: No History of Anesthesia Complications Family History: No Family History of Anesthesia Complications Exercise Tolerance Exercise Tolerance: Metabolic Equivalents>4 Pertinent Negatives Pertinent Negatives: No Symptoms of GERD Cardiac & Pulmonary Exam Cardiac Exam: Normal S1/S2 Heart Sounds Pulmonary Exam: Clear Bilateral Breath Sounds Implantable Cardiac Device Does patient have a Pacemaker or an ICD?: No Airway Exam Known Difficult Airway: No Mallampati Class: 1 Mouth Opening: Normal (> 3cm) Thyromental Distance: Greater than 3 cm Neck Range of Motion: Full ROM Neck Circumference: Normal Teeth Condition: Normal Dentition ASA Classification ASA Score: ASA 2 Emergency Case?: Yes NPO Status NPO Status: NPO Clears >2 hours, Solids >8 hours Status Status: Negative HCG Anesthesia Plan Resuscitation Status: Full Code Anesthesia Technique: General Anesthesia Airway Planned: Endotracheal Tube Monitors Used: Standard Monitors
[2024-02-04] MEDS: Lactated Ringers 1,000 ML 100 ML IV (15:30)
--- NOTE | 2024-02-04 16:10 | OVAR_PTH ---
PATIENT: Lola Escoto LOC: [facility] U#:[id number] AGE/SX: 23/F ROOM: RE02/04/[address]: Summer English : 2000 BED: DIS: 02/04/2024 SPEC #: [id number] RECD: 02/05/24 12:48 STATUS: DONI RERamone #: [id number] SKY: 02/04/24 16:[address]: Summer English DEPT: Surgical Specimen RECD BY: Padmaja Nielsen ENTERED: 02/05/24 12:49 SP TYPE: KAYLIN DAWN DR: Sanam Pierce Tissues: 1 - OVARY BIOPSY 2 - OVARY BIOPSY 3 - OVARY BIOPSY Procedures: GROSS AND MICRO LEVEL 4 Comments: [id number]
[2024-02-04] MEDS: Bupivacaine 0.25% Pres-Free 30 ML VIAL (16:43)
[2024-02-04] MEDS: Droperidol 5 MG/2 ML VIAL 0.625 MG IVP (17:21)
[2024-02-04] MEDS: fentaNYL 100 MCG/2 ML VIAL IVP (17:22)
--- NOTE | 2024-02-04 17:35 | PDOC.DSDIS_ITS ---
Date of service: 02/04/24 Time of Service: 17:35 Discharge Plan Discharge Details Reason For Visit: abd pain Attending Provider: Paige Morgan Primary Care Provider: Sanam Pierce Home Meds and New Rx's Prescriptions: No Action loratadine [Claritin] 10 mg tablet 10 mg PO PRN pantoprazole [Protonix] 40 mg tablet,delayed release (DR/EC) 40 mg PO DAILY Qty: 30 0RF (DME) Aerochamber Plus Flow-Vu 1 EACH spacer 1 ea Miscellaneous PRN Qty: 1 Rx Instructions: use with pro-air inhaler albuterol sulfate [ProAir HFA] 8.5 GM HFA aerosol inhaler 2 puff Inhalation Q4H PRNQty: 1 Rx Instructions: take 2 puffs (5 minutes apart) 15 minutes prior to exercise and every 4 hours as needed for wheezing/work of breathing Chewable Multi Vitamin 1 EACH tablet,chewable 1 tab PO DAILY PRN PRN fluticasone propionate [Flonase Allergy Relief] 50 mcg/actuation [place],Suspension 1 spray INTRANASAL PRN PRN ondansetron 4 mg tablet,disintegrating 4 mg PO Q8H PRN (Reason: nausea and vomiting) Qty: 30 0RF ibuprofen 200 mg Tablet 200 mg PO Q6H PRN DS: Diagnosis Discharge Diagnosis (1) Endometriosis determined by laparoscopy: Status: Acute (2) Endometrioma of ovary: Status: Acute
--- NOTE | 2024-02-04 17:37 | W.ANESPOSTOP ---
Postoperative Evaluation Date, Time and Location Date Performed: 02/04/24 Time Performed: 17:37 Patient Location: PACU Vital Signs Most Recent Imported Vital Signs: Most Recent Vital Signs Temp Pulse Resp BP Pulse Ox 36.8 C 67 18 119/53 L 98 02/04/24 17:23 02/04/24 17:23 02/04/24 17:23 02/04/24 17:08 02/04/24 17:23 Pain Score Most Recent Pain Score: Most Recent Pain Score Pain Level 4 02/04/24 17:23 Assessment Mental Status: Awake (Alert & Oriented to Patient Baseline) Airway and Respiratory Function: Patent airway with normal (patient baseline) respiratory exam Cardiovascular Function: Hemodynamically Stable Hydration Status: Adequately Hydrated Nausea & Vomiting: No Nausea or Vomiting Pain: Pain is tolerable per patient Peripheral Nerve Block: Patient did not receive a nerve block
[2024-02-04] MEDS: oxyCODONE 5 mg/Acetaminophen 325 mg TAB PO (18:08)
--- NOTE | 2024-02-04 18:53 | W.PM.DSUDISC ---
Date of service: 02/04/24 Time of Service: 12:33 Discharge Plan Disposition Patient Disposition: Home Condition: Stable Discharge Details Reason For Visit: abd pain Attending Provider: Summer English Primary Care Provider: Sanam Pierce Home Meds and New Rx's Prescriptions: No Action loratadine [Claritin] 10 mg tablet 10 mg PO PRN pantoprazole [Protonix] 40 mg tablet,delayed release (DR/EC) 40 mg PO DAILY Qty: 30 0RF oxycodone-acetaminophen [Percocet] 5-325 mg tablet 1 tab PO Q6H MDD 4 PRN (Reason: pain) Qty: 10 0RF ondansetron HCl 4 mg tablet 4 mg PO Q6H Qty: 10 0RF (DME) Aerochamber Plus Flow-Vu 1 EACH spacer 1 ea Miscellaneous PRN Qty: 1 Rx Instructions: use with pro-air inhaler albuterol sulfate [ProAir HFA] 8.5 GM HFA aerosol inhaler 2 puff Inhalation Q4H PRNQty: 1 Rx Instructions: take 2 puffs (5 minutes apart) 15 minutes prior to exercise and every 4 hours as needed for wheezing/work of breathing Chewable Multi Vitamin 1 EACH tablet,chewable 1 tab PO DAILY PRN PRN fluticasone propionate [Flonase Allergy Relief] 50 mcg/actuation [place],Suspension 1 spray INTRANASAL PRN PRN ondansetron 4 mg tablet,disintegrating 4 mg PO Q8H PRN (Reason: nausea and vomiting) Qty: 30 0RF ibuprofen 200 mg Tablet 200 mg PO Q6H PRN Discharge Instructions Additional Instructions: Call [phone] Saturday02/05/2024 and make an appointment to see Dr. English on 02/06/24 for a postop check. Call Dr. English at her number [phone] with any concerns or questions. You may removed and replace the BandAids on your abdomen. Leave the steri-strips in place. Stand Alone Forms: [facility] Post Acute Care Registered Nurse SurgeryW/Incision, Nursing Discharge Form Referrals: Summer English MD [ [facility] STAFF PHYSICIAN] - (Call [phone] Saturday02/05/2024 and make an appointment to see Dr. English on 02/06/24 for a postop check. Call Dr. English at her number [phone] with any concerns or questions. You may removed and replace the BandAids on your abdomen. Leave the steri-strips in place) Remove Dressings/Wound Care:: 24 hours Shower/Bathe:: 24 hours Diet:: As Tolerated Discharge Orders Discharge Orders: Discharge Order (Routine); Ordered 02/04/24 Ordered By: Summer English Discharge Data Discharge Date/Time-TO BE ENTERED AT DEPARTURE: 02/04/24 19:58 DS: Diagnosis Discharge Diagnosis (1) Endometriosis determined by laparoscopy: Status: Acute (2) Endometrioma of ovary: Status: Acute (3) Hx of laparoscopy: Status: Acute
--- NOTE | 2024-02-04 18:58 | W.PM.HP.N ---
Date of service: 02/04/24 Time of Service: 15:00 Assessment and Plan Assessment and plan (1) Endometrioma of ovary: Status: Acute Assessment and plan: I was present at the time of the patient's U/s in DI. L ovary is enlarged and homogenous in appearance. No evidence of ovarian follicles. Blood flow present to both ovaries. I have counseled pt regarding need for surgery with plan to perform bilateral ovarian cystectomies. Informed consent was obtained. Patient was counseled regarding the risk of the procedure including damage to bowel bladder surrounding structures the risk of infection and the need for laparotomy possible hysterectomy in the event of damage to blood vessels and to uterus. The consent was obtained for both ovarian cystectomies possible bilateral oophorectomies and possible hysterectomy. (2) Pelvic pain: Status: Acute History of Present Illness History of Present Illness Chief Complaint: worsening abdominal pain, L ovarian cyst Consults Consult date: 02/04/24 Requesting physician: Darion Anaya Narrative: Pt is a 23yo G0 female with a LMP 10/2023 who presented to the [facility] ED today with worsening L sided pelvic pain. Pt was diagnosed with a L sided endometrioma 3mo ago at [facility] [place]. She was started on Norethindrone Acetate 5mg/day at that time. Yesterday pt had an episode of acute pelvic pain while she was at work at [employer] [facility] [facility] [employer] [facility] [place] and was evaluated in the emergency department. She did not have surgery and was sent home with instructions for bedrest with plans for Fur Examiner eval in the near future. PGynHx Kyleena IUD removed after 6mo of daily bleeding. 10/2023. Norethindrone 5mg initiated. Review of Systems All systems reviewed & are unremarkable except as noted in HPI and below Constitutional Constitutional: Reports as per HPI Genitourinary Genitourinary: Reports amenorrhea (since 10/2023) and Reports pelvic pain Neurologic Neurologic: Reports system reviewed and no additional complaints, except as documented Psychiatric Psychiatric: Reports system reviewed and no additional complaints, except as documented and Reports anxiety (2/2 pain.) PFSH All Active Problems Hx of laparoscopy (Acute) 02/04/24. Laparoscopic bilateral ovarian cystectomies for stage 4 endometriosis. Endometrioma of ovary (Acute) 02/04/24. 5.6cm L ovary Endometriosis determined by laparoscopy (Acute) 02/04/24. Bilateral endometriomas. s/p laparoscopic R & L ovarian cystectomy. Dysmenorrhea (Acute) Diarrhea, functional (Acute) Postprandial RUQ pain (Acute) Abdominal pain (Acute) Gastritis (Acute) Pelvic pain (Acute) Hemorrhagic cyst (Acute) Abdominal pain (Acute) Mild intermittent asthma (Acute) Dysmenorrhea in adolescent (Acute 08/27/17) Menorrhagia with regular cycle (Acute 08/27/17) Medical History Plica syndrome, left knee Fracture of phalanx of right index finger Surgical History History of esophagogastroduodenoscopy (EGD) (~09/2021) Arthroplasty of knee Family History Mother No problems noted. 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 Do you feel safe at home: Yes Do you feel safe in your relationship?: Yes Female Reproductive History Menstrual Age of Menarche: 16 control method: pills History History 0 Para Hx # Term Pregnancies Multiple births Hx # Pregnancies Ectopic pregnancies AB induced Hx Number of Living Children AB spontaneous Meds Allergies and Home Medications Allergies Allergy/AdvReac Type Severity Reaction Status Date / Time No Known Allergies Allergy Verified 12/11/21 14:39 Home Medications Medication Instructions Recorded Confirmed Type multivitamin (Chewable Multi 1 tab PO DAILY PRN PRN 10/29/14 02/04/24 History Vitamin tablet) inhalational spacing device ##1 05/16/16 02/04/24 History (Aerochamber Plus Flow-Vu) albuterol sulfate 90 mcg/actuation 2 puff inhalation Q4H PRN ##1 05/15/17 02/04/24 History aerosol inhaler (ProAir HFA) fluticasone propionate 50 1 spray intranasal PRN PRN 09/27/21 02/04/24 History mcg/actuation nasal spray,suspension (Flonase Allergy Relief) ondansetron 4 mg disintegrating 4 mg PO Q8H PRN nausea and 10/10/21 02/04/24 Rx tablet vomiting #30 tabs loratadine 10 mg tablet (Claritin) 10 mg PO PRN 10/12/21 02/04/24 History pantoprazole 40 mg tablet,delayed 40 mg PO DAILY #30 tabs 10/12/21 02/04/24 Rx release (Protonix) ibuprofen 200 mg tablet 200 mg PO Q6H PRN 12/11/21 02/04/24 History ondansetron HCl 4 mg tablet 4 mg PO Q6H #10 tabs 02/04/24 02/04/24 Rx oxycodone-acetaminophen 5 mg-325 1 tab PO Q6H PRN pain #10 tabs 02/04/24 02/04/24 Rx mg tablet (Percocet) Exam Const General: in distress and anxious Nutritional Appearance: thin Orientation: alert, awake and oriented x3 Neck Neck: normal visual inspection Chest Chest: deferred Resp Effort & Inspection: normal respiratory effort Auscultation: clear to auscultation bilaterally Cardio Rate: regular rate Rhythm: regular rhythm GI Inspection: normal to inspection Palpation: soft, no hepatosplenomegaly and tender in the LLQ, in the RLQ and suprapubicly Rectal Exam - female: deferred General: deferred Skin General skin exam: no rashes or lesions noted Extrem General: normal to inspection Psych Appearance: grossly normal Mental Status: mental status grossly normal Speech and Movement: speech and movement normal Mood: anxious mood Affect: normal affect Results Labs 02/04/24 12:30 02/04/24 12:30 Labs: Laboratory Results - last 24 hr 02/04/24 02/04/24 02/04/24 12:11 12:25 12:30 WBC 9.46 RBC 5.14 Hgb 12.7 Hct 40.8 MCV 79 L MCH 24.7 L MCHC 31.1 L RDW 13.7 Plt Count 341 MPV 8.6 Immature Gran % 0.2 Neutrophils % 62.6 Lymphocytes % 21.7 Monocytes % 12.2 Eosinophils % 2.5 Basophils % 0.8 Nucleated RBC % 0.0 Absolute Neutrophils 5.92 Absolute Lymphocytes 2.05 Absolute Monocytes 1.15 H Absolute Eosinophils 0.24 Absolute Basophils 0.08 VBG Lactate 1.0 Sodium 141 Potassium 3.5 Chloride 105 Carbon Dioxide 27.8 Anion Gap 8.2 BUN 10 Creatinine 0.9 Est GFR (CKD-EPI 2020) 92.70 Glucose 96 Calcium 9.4 Total Bilirubin 0.6 AST 14 L ALT 19 Alkaline Phosphatase 46 Total Protein 7.8 Albumin 4.1 Lipase 43 Urine Color Cancelled Yellow Urine Clarity Cancelled Sl Cloudy Urine pH Cancelled 5.5 Ur Specific [place] Cancelled 1.025 Urine Protein Cancelled Negative Urine Ketones Cancelled Negative Urine Blood Cancelled Negative Urine Nitrite Cancelled Negative Urine Bilirubin Cancelled Negative Urine Urobilinogen Cancelled 0.2 Ur Leukocyte Esterase Cancelled Trace H Urine RBC 0-2 Urine WBC 5-10 Ur Epithelial Cells Many Urine Crystals Negative Urine Bacteria Moderate Urine Casts Negative Urine Mucus Negative Ur Culture Indicated? No/Sq. Contamination Urine Glucose Cancelled Negative Last Vital Signs Temp 100.2 F H 02/04/24 17:54 Pulse 69 02/04/24 17:54 Resp 16 02/04/24 17:54 BP 106/67 02/04/24 18:24 Pulse Ox 97 02/04/24 17:54 Time Spent Time spent with Patient: 40-54 minutes Time was spent: preparing to see the patient(eg.review tests), obtaining and/or reviewing separately otained hiistory, ordering medications,tests, procedures, referring, communicating with other health lpn care manager and indepentently interpreting results
[2024-02-04 21:54] LABS: Lab Add On Test DONE
[2024-02-04 22:18] LABS: HCG Quant, Pregnancy < 1 mIU/mL (1-3)
--- NOTE | 2024-02-06 12:34 | ROE_ITS ---
Date of service: 02/06/24 Time of Service: 12:34 Operative Note Operative Note DATE OF PROCEDURE: 02/04/24 PRE-OP DIAGNOSIS: pelvic pain, L ovarian endometrioma, R ovarian endometrioma PROCEDURE: Laparoscopic bilateral ovarian cystectomies SURGEON: Summer English ASSISTING SURGEON: Sherita Lopez Refer to Anesthesia Record ESTIMATED BLOOD LOSS: 5 PATHOLOGY: other (Left ovarian endometrioma cyst wall) COMPLICATIONS: None Patient was transported to: PACU Patient's condition: stable Indications: 23yo G0 female with a LMP 10/2023 who presented to the [facility] ED [facility] with worsening L sided pelvic pain. Pt was diagnosed with a L sided endometrioma 3mo ago at [facility] [place] and started on Norethindrone Acetate 5mg/day. 02/03/2024 pt had an episode of acute pelvic pain while she was at work at [facility] [place] and was evaluated in the emergency department. She did not have surgery and was sent home with instructions for bedrest with plans for Dredge Operator Supervisor eval in the near future. Findings: Enlarged left ovary with seepage of chocolate brown fluid on the underside of the interface with the suspensory ligament of the ovary. Solitary left ovarian cyst with copious amounts of chocolate colored discharge. Right ovary with a smaller endometrioma discharge. No evidence of endometrial implants in the pelvis or upper abdomen. Normal-appearing appendix. Normal-appearing uterus and fallopian tubes. A small cyst of morganii on the right and left fallopian tubes respectively. Procedure Description: Patient was taken to the operating room where she was placed in the dorsal supine position and endotracheal anesthesia was administered.? She was then placed in the dorsolithotomy position in [facility] stirrups and prepped in the usual sterile fashion.? SCDs were in place.? A surgical timeout was performed. A [place]ka uterine manipulator was inserted into the cervix and left in place. A palumbo catheter was inserted to gravity drainage clear rosi urine returned. Attention was then turned to the abdominal portion of the case and the umbilical fold was infiltrated with 0.25% Marcaine and a 12 mm vertical skin incision was made in the umbilicus. Through this incision a Veres needle was inserted while connected to carbon dioxide as the distention medium. Intra-abdominal placement was confirmed by drop in the intra-abdominal pressure. Once a pneumoperitoneum was established a 12 mm A 12mm Visiport trocar was introduced into the abdomen under direct visualization.? The patient was then placed in Trendelenburg position and approximately 6 cm diagonal to the right and left of the umbilical incision the skin was transilluminated and the subcutaneous tissue infiltrated with quarter percent Marcaine and then incised with a scalpel.? Under direct visualization two 5 mm ports were placed in the right and left lower quadrants respectively.? The abdomen was inspected with the above-noted findings. The left cyst morganii with its attachment to the left fallopian tube and left ovary was clamped and cauterized and transected with the LigaSure device. It was passed off the operative field. A similar technique was used to remove the right sided cyst or more [place] in proximity to the right fallopian tube. Left ovary was elevated and the underside in proximity to the suspensory ligament was noted to be leaking. A suction cryptographic vulnerability analyst was inserted into the opening and copious amount of chocolate colored colored fluid aspirated. A LigaSure electrocautery device was then used to extend the incision of the capsule of the ovary allowing visualization of the endometrial cyst wall. The endometrial cyst wall was then grasped and with countertraction applied cyst wall was peeled off the body of the ovary. Residual cyst wall was visualized at the peripheral margins of the incision and excised with LigaSure device. At completion of the cystectomy the cyst bed was hemostatic. Attention was then turned to the right ovary which was grasped tented up and a LigaSure device was used to incise the ovarian capsule over the site of the small endometrioma that small endometrioma was 3 and in a similar fashion the cyst wall was excised with gentle traction. The bed of the right ovarian cyst was hemostatic.. Pelvis was copiously irrigated with normal saline until no evidence of remaining blood. The abdomen was reinspected and the right adnexa was noted to be hemostatic. Under direct observation both 5 mm lower ports were removed. Pneumoperitoneum reduced and the 12 mm trocar removed. The rectus fascia of the 12 mm vertical skin incision was grasped tented up and reapproximated with an 0 Vicryl suture. The skin of all port space was then reapproximated with subcuticular closure. The sites were dressed with Steri- Strips and Band-Aids. Patient was placed in the dorsal supine position awakened and extubated and transported recovery room in stable condition. All sponge lap needle counts were correct x 2
== END 2024-02-04 19:58 | disposition home or self-care (01) ==
LOC: ER 15:05 → SUR 15:21 → MS 17:48
PROVIDERS: Emergency Provider Student in an Organized Health Care Education/Training Program; PCP Family Medicine; Visit Provider Obstetrics & Gynecology Gynecology
PROC: (CPT 49320; principal; 2024-02-04 15:15)
DX: N80.123 Deep endometriosis of bilateral ovaries; R10.2 Pelvic and perineal pain; N91.2 Amenorrhea, unspecified; N83.8 Other noninflammatory disorders of ovary, fallopian tube and broad ligament; N83.202 Unspecified ovarian cyst, left side
CPT/HCPCS: 58662; 80053; 83690; 88305; 74177; 76830; 76856; 81003; 81015; 83605; 84702; 85025; J0665; J1100; J1790; J1885; J2001; J2250; J2270; J2405; J2704; J3010; J3490

== ENCOUNTER 2024-06-13 14:10 | Emergency (ER) | payer BC, SELFPAY ==
[2024-06-13 14:19] VITALS: BP 144/91; PULSE 113; RESP 16; TEMP 37.1; O2SAT 98
[2024-06-13 15:07] LABS: Bilirubin Negative (Negative); Blood Negative (Negative); Clarity Clear (Clear); Glucose Negative (Negative); Ketones Negative (Negative); Leukocyte Esterase Negative (Negative); Nitrite Negative (Negative); Specific Gravity 1.025 (1.005-1.025); Urobilinogen 0.2 mg/dL (Up to 0.2)
--- NOTE | 2024-06-13 15:15 | DI.CT_ITS ---
Exam(s) CT ABDOMEN PELVIS W EXAM: CT ABDOMEN PELVIS W CLINICAL HISTORY: ABDOMINAL PAIN TECHNIQUE: Imaging Protocol: Axial computed tomography images with coronal and sagittal reformatted images were created and reviewed. CONTRAST MATERIAL: Intravenous: Omnipaque 350 Contrast volume:100 mL Oral: No COMPARISON: CT CT ABDOMEN PELVIS W from 02/04/2024 FINDINGS: Imaging is somewhat limited due to the paucity of intra-abdominal fat. ABDOMEN: Lung Bases: Normal where visualized. Liver: Normal density. No measurable mass. Portal, Superior Mesenteric, and Splenic Veins: Unremarkable. Gallbladder and Biliary Tract: No radiodense calculus or dilation. Pancreas: Normal density, no abnormal calcifications or inflammatory process. Spleen: Normal. Adrenals: No masses seen. Kidneys: Normal size, contour and axis. No radiodense stones or obstructive uropathy. No masses seen. Abdominal Aorta: Abdominal portion non-dilated. Bowel: No obstruction or bowel wall thickening. No evidence of appendicitis. Peritoneal Cavity: No ascites, collection or mesenteric inflammatory response. No free air. Lymph Nodes: Within normal limits. Bones: Within normal limits for the patient's age. Soft Tissues: Unremarkable. PELVIS: Bladder: Symmetric distention, no gross wall thickening. Reproductive Organs: Unremarkable as visualized. Lymph Nodes: Within normal limits. Bones: Within normal limits for the patient's age. IMPRESSION: No acute abdominal or pelvic process. RADIATION DOSE DELIVERED: 220.5mGy.cm Total DLP DATA REPOSITORY: All CT scans at this facility are submitted to the National Radiology Data Registry (NRDR) Dose Index Registry (DIR) with the [employer] (ACR). RADIATION OPTIMIZATION: All CT scans at this facility use at least one of these dose optimization te chniques: automated exposure control; mA and/or kV adjustment per patient size (includes targeted exa ms where dose is matched to clinical indication); or iterative reconstruction.
--- NOTE | 2024-06-13 15:20 | W.ED.GENAD ---
Discharge Plan Disposition Patient Disposition: Home Condition: Stable Discharge Details Clinical Impression: Abdominal pain Primary Care Provider: Sanam Pierce ED Provider: Zhen Mendez Home Meds and New Rx's Prescriptions: New ondansetron 4 mg tablet,disintegrating 4 mg PO Q8H PRN (Reason: nausea and vomiting) Qty: 20 0RF No Action loratadine [Claritin] 10 mg tablet 10 mg PO PRN pantoprazole [Protonix] 40 mg tablet,delayed release (DR/EC) 40 mg PO DAILY Qty: 30 0RF Lupron Depot 3.75 mg syringe kit 3.75 mg IM QMONTH Qty: 1 6RF ondansetron 4 mg tablet,disintegrating 4 mg PO Q8H PRN (Reason: nausea and vomiting) Qty: 30 0RF (DME) Aerochamber Plus Flow-Vu 1 EACH spacer 1 ea Miscellaneous PRN Qty: 1 Rx Instructions: use with pro-air inhaler albuterol sulfate [ProAir HFA] 8.5 GM HFA aerosol inhaler 2 puff Inhalation Q4H PRNQty: 1 Rx Instructions: take 2 puffs (5 minutes apart) 15 minutes prior to exercise and every 4 hours as needed for wheezing/work of breathing Chewable Multi Vitamin 1 EACH tablet,chewable 1 tab PO DAILY PRN PRN fluticasone propionate [Flonase Allergy Relief] 50 mcg/actuation [place],Suspension 1 spray INTRANASAL PRN PRN ibuprofen 200 mg Tablet 200 mg PO Q6H PRN Discharge Instructions Instructions: Abdominal Pain, Adult ED Additional Instructions: Blood work and CT scan looked normal today. You have been provided with Zofran to go home with and a prescription has been sent to your pharmacy Please take Motrin and Tylenol as needed for any additional pain and follow-up with your PRICE ACCURACY SUPERVISOR if your symptoms persist HPI General Date/Time Provider Initiated Documentation: 06/13/24 14:11. Limitations to Documentation: no limitations. Information obtained by: patient. HPI Narrative: 24-year-old female with past medical history of endometriosis presents for evaluation of abdominal pain. She reports pain is generalized and severe. It is sharp, sticking and now is burning. She reports the pain is worse around her bellybutton. She states that this is different than her usual endometriosis pain. She does report that the pain started yesterday. She states that it is only been worsening since then. She reports that she has felt clammy and having chills. She has vomited several times, she feels secondary to the pain. She has not tried any medication for relief. She denies any dysuria, hematuria. She denies any changes with her bowels. Related Data Home Medications ?Medication ?Instructions ?Recorded ?Confirmed multivitamin (Chewable Multi 1 tab PO DAILY PRN PRN 10/29/14 06/13/24 Vitamin tablet) inhalational spacing device ##1 05/16/16 06/13/24 (Aerochamber Plus Flow-Vu) albuterol sulfate 90 mcg/actuation 2 puff inhalation Q4H PRN ##1 05/15/17 06/13/24 aerosol inhaler (ProAir HFA) fluticasone propionate 50 1 spray intranasal PRN PRN 09/27/21 06/13/24 mcg/actuation nasal spray,suspension (Flonase Allergy Relief) loratadine 10 mg tablet (Claritin) 10 mg PO PRN 10/12/21 06/13/24 pantoprazole 40 mg tablet,delayed 40 mg PO DAILY #30 tabs 10/12/21 06/13/24 release (Protonix) ibuprofen 200 mg tablet 200 mg PO Q6H PRN 12/11/21 06/13/24 leuprolide 3.75 mg intramuscular 3.75 mg IM QMONTH #1 ea 02/13/24 06/13/24 syringe kit (Lupron Depot) ondansetron 4 mg disintegrating 4 mg PO Q8H PRN nausea and 02/22/24 06/13/24 tablet vomiting #30 tabs ondansetron 4 mg disintegrating 4 mg PO Q8H PRN nausea and 06/13/24 tablet vomiting #20 tabs Previous Rx's ?Medication ?Instructions ?Recorded pantoprazole 40 mg tablet,delayed 40 mg PO DAILY #30 tabs 10/12/21 release (Protonix) leuprolide 3.75 mg intramuscular 3.75 mg IM QMONTH #1 ea 02/13/24 syringe kit (Lupron Depot) ondansetron 4 mg disintegrating 4 mg PO Q8H PRN nausea and 02/22/24 tablet vomiting #30 tabs ondansetron 4 mg disintegrating 4 mg PO Q8H PRN nausea and 06/13/24 tablet vomiting #20 tabs Allergies Allergy/AdvReac Type Severity Reaction Status Date / Time No Known Allergies Allergy Verified 06/13/24 14:22 General Stated Complaint: Abd Prob KAYLI: 3 Exam Narrative Exam Narrative: Review of Systems: All systems reviewed & are unremarkable except as noted in HPI and below Well-developed, appears uncomfortable, observed walking into the room clutching her belly and leaned over NCAT Moist mucous membranes Tachycardia no murmur Unlabored respiratory effort clear bilaterally Nondistended abdomen, soft, generalized tenderness +gaurding Course Vital Signs Vital signs: Vital Signs Temperature 37.1 C 06/13/24 14:19 Pulse 113 H 06/13/24 14:19 Respiratory Rate 16 06/13/24 14:19 Blood Pressure 144/91 H 06/13/24 14:19 Pulse Oximetry 98 06/13/24 14:19 Temperature 37.1 C 06/13/24 14:19 Pulse 113 H 06/13/24 14:19 Respiratory Rate 16 06/13/24 14:19 Respiratory Effort Normal 06/13/24 14:23 Blood Pressure 144/91 H 06/13/24 14:19 Pulse Oximetry 98 06/13/24 14:19 Pain Level 6 06/13/24 14:19 Lab/Test Results Lab/Test Results: Laboratory Tests Range/Units 06/13/24 14:41 Urine Color (Yellow) Yellow Urine Clarity (Clear) Clear Urine pH (5-8) 6.0 Ur Specific [place] (1.005-1.025) 1.025 Urine Protein (Neg-Trace) mg/dL Negative Urine Ketones (Negative) mg/dL Negative Urine Blood (Negative) Negative Urine Nitrite (Negative) Negative Urine Bilirubin (Negative) Negative Urine Urobilinogen (Up to 0.2) mg/dL 0.2 Ur Leukocyte Esterase (Negative) Negative Urine Glucose (Negative) mg/dL Negative Medical Decision Making Emergent evaluation of abdominal pain. Patient presents with slight tachycardia, but is afebrile, does have some mild generalized abdominal tenderness, but her examination is otherwise reassuring. She has had extensive history of endometriosis requiring laparoscopic surgery. Urinalysis was obtained while waiting, and there are no signs of infection there. She denies any other changes in her bowel to indicate gastroenteritis, but she is having vomiting so this could be an early viral illness. Will check blood work to evaluate for electrolyte derangement or possible dehydration. Will obtain a CT scan to look for etiology of her severe abdominal pain. Will give IV fluids and pain and nausea medication through her IV. Lab work was reviewed. There is no leukocytosis or significant anemia. She has no electrolyte derangement or renal function abnormality. Her urinalysis is not infected. Her test is negative. I reviewed the radiology report of the CT scan of her abdomen. There was not a clinically significant abnormality. On reassessment, the patient was noted to have improvement and resolution of her pain. I will prescribe her some Zofran to go home with. I recommend additional Tylenol and Motrin at home as needed. The patient will follow-up with her PRICE ACCURACY SUPERVISOR for further management if she has persistent symptoms Quality:SDOH Health Related Social Needs: No Data to Display PFSH All Active Problems (Updated 06/13/24 @ 17:14 by Zhen Mendez MD) Postoperative pain (Acute) Postop check (Acute) 02/04/24. Bilateral laparoscopic ovarian cystectomies of endometriomas. Hx of laparoscopy (Acute) 02/04/24. Laparoscopic bilateral ovarian cystectomies for stage 4 endometriosis. Endometrioma of ovary (Acute) 02/04/24. 5.6cm L ovary Endometriosis determined by laparoscopy (Acute) 02/04/24. Bilateral endometriomas. s/p laparoscopic R & L ovarian cystectomy. Dysmenorrhea (Acute) Diarrhea, functional (Acute) Postprandial RUQ pain (Acute) Abdominal pain (Acute) Gastritis (Acute) Pelvic pain (Acute) Hemorrhagic cyst (Acute) Abdominal pain (Acute) Mild intermittent asthma (Acute) Dysmenorrhea in adolescent (Acute 08/27/17) Menorrhagia with regular cycle (Acute 08/27/17) Medical History Plica syndrome, left knee Fracture of phalanx of right index finger Surgical History History of esophagogastroduodenoscopy (EGD) (~09/2021) Arthroplasty of knee Family History Mother No problems noted. 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 Do you feel safe at home: Yes Do you feel safe in your relationship?: Yes Female Reproductive History Menstrual Age of Menarche: 16 control method: pills History History 0 Para Hx # Term Pregnancies Multiple births Hx # Pregnancies Ectopic pregnancies AB induced Hx Number of Living Children AB spontaneous
[2024-06-13] MEDS: Droperidol 5 MG/2 ML VIAL IVP (15:45)
[2024-06-13 15:51] LABS: Abs Immature Grans 0.01 10^3/uL (0.0-0.06); Absolute Basophil Count 0.07 10^3/uL (0.0-0.2); Absolute Eosinophil Count 0.38 10^3/uL (0.0-0.7); Absolute Lymphocyte Count 2.28 10^3/uL (1.2-3.4); Absolute Monocyte Count 0.82 10^3/uL (0.1-0.8); Absolute Neutrophil Count 4.25 10^3/uL (1.2-6.7); Basophils % 0.9 %; Eosinophils % 4.9 %; HCT 40.2 % (36.0-46.0); HGB 12.6 g/dL (11.2-15.7); Immature Grans % 0.1 %; Lymphocytes % 29.2 %; MCH 25.5 pg (27.0-33.0); MCHC 31.3 % (32.0-36.0); MCV 81 fL (80-95); MPV 8.8 fL (8.0-11.0); Monocytes % 10.5 %; Neutrophils % 54.4 %; Platelet Count 307 10^3/uL (130-400); RBC 4.94 10^6/uL (3.93-5.22); RDW 13.7 % (11.7-14.6); RDW-SD 40.2 fL; WBC 7.81 10^3/uL (4.4-10.8)
[2024-06-13] MEDS: Normal Saline 1,000 ML 1000 ML IV (16:00)
[2024-06-13] MEDS: Normal Saline - Diluent 50 ML VIAL IJ (16:04)
[2024-06-13] MEDS: Omnipaque 350 MG/ML 100 ML BTL IJ (16:05)
[2024-06-13 16:08] LABS: ALT 14 U/L (14-59); AST 17 U/L (15-37); Albumin 3.9 g/dL (3.4-5.0); Alkaline Phosphatase 43 U/L (46-116); Anion Gap 5.5 mmol/L (3-11); BUN 7 mg/dL (7-18); Bilirubin, Total 0.44 mg/dL (0.2-1.0); CO2 28.5 mmol/L (21.0-32.0); CREATININE 0.9 mg/dL (0.55-1.02); Calcium 9.2 mg/dL (8.5-10.1); Chloride 105 mmol/L (98-107); Estimated GFR 92.12 (mL/min/1.73m2); Glucose 94 mg/dL (74-106); Potassium 3.8 mmol/L (3.5-5.1); Sodium 139 mmol/L (136-145); Total Protein 7.3 g/dL (6.4-8.2)
[2024-06-13 18:05] VITALS: BP 148/70; PULSE 100; RESP 18; O2SAT 96
[2024-06-13] MEDS: Ondansetron O.D.T. 4 MG TABEF, 3 TABS/BTL PO (18:09)
== END 2024-06-13 18:14 | disposition home or self-care (01) ==
PROVIDERS: Emergency Provider Emergency Medicine; PCP Family Medicine
DX: R10.30 Lower abdominal pain, unspecified (principal); Z87.42 Personal history of other diseases of the female genital tract
CPT/HCPCS: 36415; 80053; 81025; 96361; 96374; 99285; 74177; 81003; 85025; 99283; J1790; J3490

== ENCOUNTER 2024-10-05 05:25 | Emergency (ER) | payer BC, SELFPAY ==
[2024-10-05] VITALS (9 sets, daily range): BP systolic 126–152; BP diastolic 65–90; PULSE 66–90; RESP 16–20; TEMP 36.6; O2SAT 97–100
--- NOTE | 2024-10-05 05:33 | W.ED.GENAD ---
Discharge Plan Discharge Details Chief Complaint: Abd Prob Clinical Impression: Abdominal pain Primary Care Provider: Sanam Pierce ED Provider: Alonzo Reeder Meeker Meds and New Rx's Prescriptions: No Action loratadine [Claritin] 10 mg tablet 10 mg PO PRN pantoprazole [Protonix] 40 mg tablet,delayed release (DR/EC) 40 mg PO DAILY Qty: 30 0RF ondansetron 4 mg tablet,disintegrating 4 mg PO Q8H PRN (Reason: nausea and vomiting) Qty: 60 4RF ibuprofen 600 mg tablet 600 mg PO Q8H PRN (Reason: pain) Qty: 60 4RF (DME) Aerochamber Plus Flow-Vu 1 EACH spacer 1 ea Miscellaneous PRN Qty: 1 Rx Instructions: use with pro-air inhaler albuterol sulfate [ProAir HFA] 8.5 GM HFA aerosol inhaler 2 puff Inhalation Q4H PRNQty: 1 Rx Instructions: take 2 puffs (5 minutes apart) 15 minutes prior to exercise and every 4 hours as needed for wheezing/work of breathing diclofenac sodium 50 mg tablet,delayed release (DR/EC) 50 mg PO BID Qty: 10 0RF Lupron Depot 3.75 mg syringe kit 3.75 mg IM QMONTH Qty: 1 4RF Chewable Multi Vitamin 1 EACH tablet,chewable 1 tab PO DAILY PRN PRN fluticasone propionate [Flonase Allergy Relief] 50 mcg/actuation [place],Suspension 1 spray INTRANASAL PRN PRN ondansetron 4 mg tablet,disintegrating 4 mg PO Q8H PRN (Reason: nausea and vomiting) Qty: 20 0RF cefpodoxime 200 mg tablet 200 mg PO Q12H norethindrone acetate [Gallifrey] 5 mg tablet 5 mg PO DAILY Patient Comments: TAKE ONE TABLET BY MOUTH EVERY DAY HPI General Mode of arrival: ambulatory. Date/Time Provider Initiated Documentation: 10/05/24 05:33. Limitations to Documentation: no limitations. Information obtained by: patient, RN notes reviewed and old records reviewed. HPI Narrative: Patient presents to ED with complaint of severe lower abdominal pain with radiation to the flanks. Reports similar to pain with endometriosis that she is followed by Dr. English for. However, this pain is radiating into the back and flanks which has not typical for her. She reports pain began 2 weeks ago and has been steadily worsening. She reports having vomiting and diarrhea and inability to keep anything down. She also reports having fever and states she had a temp of 102 yesterday. [facility] and was referred to the ED. Her and her mother went to [facility]. They report she did have renal ultrasound which was negative but was told she had possible UTI and started on cefpodoxime. She has taken this medication, began it Saturday morning. Has had no improvement in her pain. She is not having urinary symptoms. Related Data Home Medications ?Medication ?Instructions ?Recorded ?Confirmed multivitamin (Chewable Multi 1 tab PO DAILY PRN PRN 10/29/14 10/05/24 Vitamin tablet) inhalational spacing device ##1 05/16/16 10/05/24 (Aerochamber Plus Flow-Vu) albuterol sulfate 90 mcg/actuation 2 puff inhalation Q4H PRN ##1 05/15/17 10/05/24 aerosol inhaler (ProAir HFA) fluticasone propionate 50 1 spray intranasal PRN PRN 09/27/21 10/05/24 mcg/actuation nasal spray,suspension (Flonase Allergy Relief) loratadine 10 mg tablet (Claritin) 10 mg PO PRN 10/12/21 10/05/24 pantoprazole 40 mg tablet,delayed 40 mg PO DAILY #30 tabs 10/12/21 10/05/24 release (Protonix) ondansetron 4 mg disintegrating 4 mg PO Q8H PRN nausea and 06/13/24 10/05/24 tablet vomiting #20 tabs diclofenac sodium 50 mg 50 mg PO BID #10 tabs 06/26/24 10/05/24 tablet,delayed release leuprolide 3.75 mg intramuscular 3.75 mg IM QMONTH #1 kit 08/10/24 10/05/24 syringe kit (Lupron Depot) ibuprofen 600 mg tablet 600 mg PO Q8H PRN pain #60 tabs 09/22/24 10/05/24 ondansetron 4 mg disintegrating 4 mg PO Q8H PRN nausea and 09/22/24 10/05/24 tablet vomiting #60 tabs cefpodoxime 200 mg tablet 200 mg PO Q12H 10/05/24 10/05/24 norethindrone acetate 5 mg tablet 5 mg PO DAILY 10/05/24 10/05/24 (Gallifrey) Previous Rx's ?Medication ?Instructions ?Recorded pantoprazole 40 mg tablet,delayed 40 mg PO DAILY #30 tabs 10/12/21 release (Protonix) ondansetron 4 mg disintegrating 4 mg PO Q8H PRN nausea and 06/13/24 tablet vomiting #20 tabs diclofenac sodium 50 mg 50 mg PO BID #10 tabs 06/26/24 tablet,delayed release leuprolide 3.75 mg intramuscular 3.75 mg IM QMONTH #1 kit 08/10/24 syringe kit (Lupron Depot) ibuprofen 600 mg tablet 600 mg PO Q8H PRN pain #60 tabs 09/22/24 ondansetron 4 mg disintegrating 4 mg PO Q8H PRN nausea and 09/22/24 tablet vomiting #60 tabs Allergies Allergy/AdvReac Type Severity Reaction Status Date / Time No Known Allergies Allergy Verified 10/05/24 05:28 General KAYLI: 3 Review of Systems Narrative: Per HPI Exam Narrative Exam Narrative: Const: Very thin female appears uncomfortable. VS per triage. HEENT: NC/AT. Normal facial exam. Neck: Supple. Trachea midline. Lungs: Normal respiratory effort. Lungs are clear. Cor: RRR without murmur. Good radial pulses. GI: Soft/ND, diffusely tender with voluntary guarding. Back: B CVAT. Pelvic: Deffered. Neuro: A+O x 3. Normal speech, mentation, gait. Cranial nerves II - XII grossly intact. No gross motor or sensory deficit. Ext: No C/C/E. Medical Decision Making Patient presenting to ED with abdominal pain, vomiting, diarrhea, fever. Has known history of endometriosis and is [facility], Dr. English. Was seen at [facility] ED Saturday for this and reports being put on antibiotic for UTI. She is not having urinary symptoms. She has diffuse abdominal pain and tenderness with voluntary guarding. Abdomen is soft and nondistended otherwise. She is not febrile here. She is not tachycardic or hypotensive. She was seen here in this ED in June for abdominal pain. CT scan at that time was negative. Will attempt to get [facility] ED visit notes. IV established and given her report of difficulty keeping oral down will give fluids. Zofran and morphine ordered. Laboratory studies, urinalysis, CT of abdomen pelvis with IV contrast will be obtained given the diffuse nature of her abdominal pain and tenderness and report of fever. 07:10 - Patient's labs are all normal. Her urinalysis does not suggest infection. CT scan has been completed and is pending read. She does appear more comfortable at this time. Signed out to oncoming ED physician pending CT read. If no acute process pain symptoms likely related to endometriosis and she will need to follow-up with gynecology. Medical Records Medical records reviewed: Yes I reviewed the patient's medical records. Medical records narrative: [facility] notes Lab Data Lab results reviewed: Yes I reviewed the patient's lab results. Lab results narrative: see [facility] All Active Problems (Updated 10/05/24 @ 07:16 by Alonzo Reeder MD) Prophylactic use of leuprolide acetate (Lupron) (Acute) Dysmenorrhea (Acute) Diarrhea, functional (Acute) Postprandial RUQ pain (Acute) Abdominal pain (Acute) Gastritis (Acute) Pelvic pain (Acute) Hemorrhagic cyst (Acute) Mild intermittent asthma (Acute) Dysmenorrhea in adolescent (Acute 08/27/17) Menorrhagia with regular cycle (Acute 08/27/17) Medical History Endometriosis determined by laparoscopy 02/04/24. Bilateral endometriomas. s/p laparoscopic R & L ovarian cystectomy. Endometrioma of ovary 02/04/24. 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 Laparoscopic bilateral ovarian cystectomies for stage 4 endometriosis. History of esophagogastroduodenoscopy (EGD) (~09/2021) Arthroplasty of knee Family History Mother No problems noted. 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 Do you feel safe at home: Yes Do you feel safe in your relationship?: Yes Female Reproductive History Menstrual Age of Menarche: 16 control method: pills History History 0 Para Hx # Term Pregnancies Multiple births Hx # Pregnancies Ectopic pregnancies AB induced Hx Number of Living Children AB spontaneous
[2024-10-05 05:43] LABS: Bilirubin Negative (Negative); Blood Negative (Negative); Clarity Clear (Clear); Glucose Negative (Negative); Ketones Negative (Negative); Leukocyte Esterase Trace (Negative); Nitrite Negative (Negative); Urobilinogen 0.2 mg/dL (Up to 0.2)
--- NOTE | 2024-10-05 05:45 | DI.CT_ITS ---
Exam(s) CT ABDOMEN PELVIS W EXAM: CT ABDOMEN PELVIS W CLINICAL HISTORY: diffuse abd pain, vomiting, reported fever. TECHNIQUE: Imaging Protocol: Axial computed tomography images with coronal and sagittal reformatted images were created and reviewed CONTRAST MATERIAL: Intravenous: Omnipaque-350 75cc Oral: None COMPARISON: CT CT ABDOMEN PELVIS W from 06/13/2024 FINDINGS: VISUALIZED LUNG BASES: No nodules nor pleural effusions evident. ABDOMEN: There is no ascites. LIVER: There are no focal hepatic lesions evident. No dilated intrahepatic ducts. GALLBLADDER/BILIARY: No obvious gallbladder pathology. CBD is not dilated. PANCREAS: No evidence of pancreatic mass nor dilatation of the pancreatic duct. SPLEEN: Spleen is not enlarged. No obvious intrasplenic lesions. Splenic and portal veins are paten t. ADRENALS: There are no significant adrenal masses. KIDNEYS:No cysts evident. No solid renal masses. No calculi nor hydronephrosis.. ABDOMINAL AORTA: Abdominal aorta is not enlarged. LYMPH NODES:There is no retroperitoneal nor paraaortic adenopathy. ABDOMINAL WALL: No evidence of significant anterior abdominal wall nor inguinal hernia. GI: There is no evidence of bowel obstruction, free air, nor abscess. PELVIS: GI: No evidence of appendicitis.No evidence of sigmoid diverticulitis. LYMPH NODES: There is no intrapelvic nor inguinal adenopathy. REPRODUCTIVE: Age-appropriate. There is a 1.5 cm follicular cyst in left ovary. No free fluid. URINARY BLADDER: No calculi nor obvious masses evident OSSEOUS: No fractures and no significant osseous lesions. IMPRESSION: 1. No significant acute findings in the abdomen and pelvis. Report called by myself to ER physician 10/05/2024 8:15 a.m. RADIATION DOSE DELIVERED: 257.45mGy.cm Total DLP DATA REPOSITORY: All CT scans at this facility are submitted to the National Radiology Data Registry (NRDR) Dose Index Registry (DIR) with the [employer] (ACR). RADIATION OPTIMIZATION: All CT scans at this facility use at least one of these dose optimization te chniques: automated exposure control; mA and/or kV adjustment per patient size (includes targeted exa ms where dose is matched to clinical indication); or iterative reconstruction.
[2024-10-05 05:55] LABS: Bacteria Rare HPF (Negative); C & S Indicated? No; Casts Negative LPF (Negative); Crystals Negative HPF (Negative); Epithelial Cells Rare HPF (Negative); Mucus Negative (Negative); RBC Negative HPF (0-2); WBC 0-2 HPF (0-5)
[2024-10-05] MEDS: Ondansetron 4 MG/2 ML VIAL IVP ×2 (05:56→08:25)
[2024-10-05] MEDS: MORPHine 10 MG/ML VIAL 4 MG IVP (05:56)
[2024-10-05] MEDS: Normal Saline 1,000 ML 1000 ML IV (05:57)
[2024-10-05 05:58] LABS: Abs Immature Grans 0.02 10^3/uL (0.0-0.06); Absolute Basophil Count 0.07 10^3/uL (0.0-0.2); Absolute Eosinophil Count 0.38 10^3/uL (0.0-0.7); Absolute Lymphocyte Count 1.92 10^3/uL (1.2-3.4); Absolute Monocyte Count 0.73 10^3/uL (0.1-0.8); Basophils % 1.2 %; Eosinophils % 6.3 %; HCT 42.8 % (36.0-46.0); HGB 13.8 g/dL (11.2-15.7); Immature Grans % 0.3 %; Lymphocytes % 31.9 %; MCH 26.9 pg (27.0-33.0); MCHC 32.2 % (32.0-36.0); MCV 83 fL (80-95); Monocytes % 12.1 %; Neutrophils % 48.2 %; Platelet Count 276 10^3/uL (130-400); RBC 5.13 10^6/uL (3.93-5.22); RDW-SD 42.8 fL; WBC 6.02 10^3/uL (4.4-10.8)
[2024-10-05] MEDS: Omnipaque 350 MG/ML 100 ML BTL IJ (06:05)
[2024-10-05] MEDS: Normal Saline - Diluent 50 ML VIAL IJ (06:06)
[2024-10-05] MEDS: Normal Saline Flush 10 ML SYR IVP (06:06)
[2024-10-05 06:24] LABS: ALT 18 U/L (14-59); AST 16 U/L (15-37); Albumin 4.2 g/dL (3.4-5.0); Alkaline Phosphatase 57 U/L (46-116); Anion Gap 8.1 mmol/L (3-11); BUN 8 mg/dL (7-18); Bilirubin, Total 0.56 mg/dL (0.2-1.0); CO2 28.9 mmol/L (21.0-32.0); CREATININE 0.8 mg/dL (0.55-1.02); Calcium 9.3 mg/dL (8.5-10.1); Chloride 107 mmol/L (98-107); Estimated GFR 106.11 (mL/min/1.73m2); Glucose 84 mg/dL (74-106); Lipase 31 U/L (<78); Potassium 3.7 mmol/L (3.5-5.1); Sodium 144 mmol/L (136-145); Total Protein 7.4 g/dL (6.4-8.2)
--- NOTE | 2024-10-05 08:12 | DI.VRAD_ITS ---
PROCEDURE INFORMATION: Exam: CT Abdomen And Pelvis With Contrast Exam date and time: 10/05/2024 6:25 AM Age: 24 years old Clinical indication: Fever and vomiting; Abdominal pain; Generalized; Patient HX: Diffuse abd pain, vomiting, reported fever TECHNIQUE: Imaging protocol: Computed tomography of the abdomen and pelvis with contrast. Radiation optimization: All CT scans at this facility use at least one of these dose optimization techniques: automated exposure control; mA and/or kV adjustment per patient size (includes targeted exams where dose is matched to clinical indication); or iterative reconstruction. Contrast material: OMNIPAQUE 350; Contrast volume: 75 ml; Contrast route: INTRAVENOUS (IV); COMPARISON: CT ABDOMEN PELVIS W 06/13/2024 4:02 PM FINDINGS: Liver: Unremarkable liver. No mass identified. Gallbladder and biliary ducts: The gallbladder is unremarkable. No calcified stones. No ductal dilation. Pancreas: No pancreatic lesion seen. Spleen: The spleen is unremarkable. No splenomegaly. No ductal dilation. Adrenal glands: The adrenal glands are unremarkable. No defined mass. Kidneys and ureters: Normal. No hydronephrosis. Stomach and bowel: No bowel obstruction. No mucosal thickening. Appendix: No evidence of appendicitis. Intraperitoneal space: No free air. No significant fluid collection. Vasculature: No abdominal aortic aneurysm. Lymph nodes: No enlarged lymph nodes. Urinary bladder: Unremarkable as visualized. Reproductive: Unremarkable as visualized. Bones/joints: No acute fracture. Soft tissues: Unremarkable. IMPRESSION: No evidence of bowel obstruction or severe bowel inflammation. Dictated and Authenticated by: Esme Chan MD. Ordering:JULIO CÉSAR Rosado MD
[2024-10-05] MEDS: Ketorolac 30 MG/ML VIAL IVP (08:25)
[2024-10-05] MEDS: MORPHine 4 MG/ML SYR IVP (08:25)
--- NOTE | 2024-10-05 09:06 | W.EDPROG ---
Date of service: 10/05/24 Time of Service: 09:07 Medical Decision Making Patient was signed out to me by my colleague Dr. Reeder. Please refer to his HPI, physical exam, assessment and plan. At time of signout we are awaiting CT results. CT scan has been read and shows no evidence of acute process. Repeat exam demonstrates an improved female, with no evidence of an acute surgical abdomen. She still does have mild generalized achiness throughout on palpation, but no pain at McBurney's point. Negative Ruiz sign. Symptoms appear consistent with an exacerbation of endometriosis, and clinically inconsistent with acute mesenteric ischemia, ovarian torsion, tubo-ovarian abscess, ruptured ectopic, or other acute life-threatening etiology. With the patient's improvement of pain she feels comfortable going home. She does have opiate narcotics at home for use as well as NSAIDs. Will recommend continued use of this. Discussed red flags which to return and the importance of close follow-up with her PCP. I have extensively reviewed the treatment plan and discharge instructions with the patient and their family. I have addressed all patient concerns at this time. The patient and family was made aware of what symptoms to monitor for that would warrant a return to the emergency department. Discussed the plan with the patient and family, they demonstrate verbal understanding and agreement with our assessment and plan at this time. The documentation in this chart was dictated using [employer] dictation software. Please excuse any dictation errors. FINDINGS: Liver: Unremarkable liver. No mass identified. Gallbladder and biliary ducts: The gallbladder is unremarkable. No calcified stones. No ductal dilation. Pancreas: No pancreatic lesion seen. Spleen: The spleen is unremarkable. No splenomegaly. No ductal dilation. Adrenal glands: The adrenal glands are unremarkable. No defined mass. Kidneys and ureters: Normal. No hydronephrosis. Stomach and bowel: No bowel obstruction. No mucosal thickening. Appendix: No evidence of appendicitis. Intraperitoneal space: No free air. No significant fluid collection. Vasculature: No abdominal aortic aneurysm. Lymph nodes: No enlarged lymph nodes. Urinary bladder: Unremarkable as visualized. Reproductive: Unremarkable as visualized. Bones/joints: No acute fracture. Soft tissues: Unremarkable. IMPRESSION: No evidence of bowel obstruction or severe bowel inflammation. Thank you for allowing us to participate in the care of your patient. Dictated and Authenticated by: Esme Thakkar MD 10/05/2024 8:12 AM Eastern Time ([place] & [place]) Quality:SDOH Health Related Social Needs: No Data to Display Discharge Plan Disposition Patient Disposition: Home Condition: Good Discharge Details Clinical Impression: Abdominal pain Primary Care Provider: Sanam Pierce ED Provider: Darion Anaya Home Meds and New Rx's Prescriptions: No Action loratadine [Claritin] 10 mg tablet 10 mg PO PRN pantoprazole [Protonix] 40 mg tablet,delayed release (DR/EC) 40 mg PO DAILY Qty: 30 0RF ondansetron 4 mg tablet,disintegrating 4 mg PO Q8H PRN (Reason: nausea and vomiting) Qty: 60 4RF ibuprofen 600 mg tablet 600 mg PO Q8H PRN (Reason: pain) Qty: 60 4RF (DME) Aerochamber Plus Flow-Vu 1 EACH spacer 1 ea Miscellaneous PRN Qty: 1 Rx Instructions: use with pro-air inhaler albuterol sulfate [ProAir HFA] 8.5 GM HFA aerosol inhaler 2 puff Inhalation Q4H PRNQty: 1 Rx Instructions: take 2 puffs (5 minutes apart) 15 minutes prior to exercise and every 4 hours as needed for wheezing/work of breathing diclofenac sodium 50 mg tablet,delayed release (DR/EC) 50 mg PO BID Qty: 10 0RF Lupron Depot 3.75 mg syringe kit 3.75 mg IM QMONTH Qty: 1 4RF Chewable Multi Vitamin 1 EACH tablet,chewable 1 tab PO DAILY PRN PRN fluticasone propionate [Flonase Allergy Relief] 50 mcg/actuation [place],Suspension 1 spray INTRANASAL PRN PRN ondansetron 4 mg tablet,disintegrating 4 mg PO Q8H PRN (Reason: nausea and vomiting) Qty: 20 0RF cefpodoxime 200 mg tablet 200 mg PO Q12H norethindrone acetate [Gallifrey] 5 mg tablet 5 mg PO DAILY Patient Comments: TAKE ONE TABLET BY MOUTH EVERY DAY Discharge Instructions Instructions: Abdominal Pain, Adult ED, Endometriosis ED Additional Instructions: At this time your workup and CT imaging has returned reassuring. There is no evidence of significant or acute life-threatening etiology. That being said I suspect that your symptoms are a component of your endometriosis as well. Please follow-up closely with your OB team. Please continue to take 800 mg of ibuprofen and 1000 mg of Tylenol every 6 hours for the next day or so to help with the pain. These are the maximum doses. Please take your home opiate narcotic for breakthrough pain. If you notice any worsening of your symptoms, or any new symptoms such as vomiting, diarrhea, fever, chills, shortness of breath, chest pain, numbness, weakness, or fainting , please return immediately to the emergency department for reevaluation. Please follow up with your primary care provider as soon as possible for reassessment and reevaluation. As always, it was a pleasure participating in your medical care today. Referrals: Summer English MD [ [facility] STAFF PHYSICIAN] - Sanam Pierce MD [Primary Care Provider] -
[2024-10-05] MEDS: HYDROmorphone 2 MG/ML SYR 1 MG IVP (09:18)
== END 2024-10-05 09:45 | disposition home or self-care (01) ==
PROVIDERS: Emergency Medicine; Emergency Provider Student in an Organized Health Care Education/Training Program; PCP Family Medicine
DX: R10.9 Unspecified abdominal pain (principal); N80.9 Endometriosis, unspecified; R11.10 Vomiting, unspecified; R19.7 Diarrhea, unspecified; R50.9 Fever, unspecified
CPT/HCPCS: 00123; 36415; 80053; 81025; 83690; 96361; 96374; 96375; 96376; 99285; 74177; 81003; 81015; 83735; 85025; 99284; J1171; J1885; J2270; J2405; J3490

== ENCOUNTER 2024-11-05 17:31 | Outpatient (REF) | payer BC, SELFPAY ==
[2024-11-05 22:11] LABS: Abs Immature Grans 0.02 10^3/uL (0.0-0.06); Absolute Basophil Count 0.06 10^3/uL (0.0-0.2); Absolute Eosinophil Count 0.35 10^3/uL (0.0-0.7); Absolute Lymphocyte Count 1.67 10^3/uL (1.2-3.4); Absolute Monocyte Count 0.72 10^3/uL (0.1-0.8); Absolute Neutrophil Count 4.79 10^3/uL (1.2-6.7); Basophils % 0.8 %; Eosinophils % 4.6 %; HCT 43.8 % (36.0-46.0); HGB 14.2 g/dL (11.2-15.7); Immature Grans % 0.3 %; Lymphocytes % 21.9 %; MCH 27.3 pg (27.0-33.0); MCHC 32.4 % (32.0-36.0); MCV 84 fL (80-95); MPV 9.6 fL (8.0-11.0); Monocytes % 9.5 %; Neutrophils % 62.9 %; Platelet Count 332 10^3/uL (130-400); WBC 7.61 10^3/uL (4.4-10.8)
[2024-11-06 22:25] LABS: HIV-1/2 Ag & Ab Screen Negative (Negative)
[2024-11-09 11:07] LABS: CMV Ab, IgG Positive (Negative); CMV Ab, IgM Negative (Negative); Toxoplasma Ab, IgG Negative (Negative); Toxoplasma Ab, IgM Negative (Negative); Toxoplasma IgG Value <3 IU/mL
== END 2024-11-05 17:32 | disposition home or self-care (01) ==
LOC: NCHCN 17:31
PROVIDERS: PCP Family Medicine; Visit Provider Family Medicine
DX: R59.0 Localized enlarged lymph nodes (principal)
CPT/HCPCS: 87389; 85025; 86644; 86645; 86777; 86778

== ENCOUNTER 2024-12-17 11:10 | Emergency (ER) | payer BC, SELFPAY ==
[2024-12-17 11:13] VITALS: BP 151/86; PULSE 83; RESP 20; TEMP 36.6; O2SAT 97
--- NOTE | 2024-12-17 11:15 | DI.US_ITS ---
Exam(s) US PELVIS TRANSVAGINAL EXAM: US PELVIS TRANSVAGINAL CLINICAL HISTORY: RLQ pelvic pain h/o ovarian cysts + endometriosis. TECHNIQUE: Transabdominal and transvaginal pelvic ultrasound was performed using standard protocol. COMPARISON: US US PELVIS TRANSVAGINAL from 02/04/2024 FINDINGS: UTERUS: Position: Anteverted. Size: 7.8 long by 3.3 AP by 5.1 transverse cm Endometrium: 0.2 cm. Normal for patient's menstrual status. Myometrium: Unremarkable. Cervix: Unremarkable. OVARIES: Right: 2.6 x 1.4 x 1.4 cm Cyst or mass: No suspicious cystic or solid masses. Left: 2.9 x 1.8 x 2.1 cm Cyst or mass: No suspicious cystic or solid masses. DOPPLER: Color: Symmetric and uniform flow to both ovaries. CUL-DE-SAC: Free fluid: None. Other: None. IMPRESSION: 1. Normal-appearing uterus with endometrial stripe within normal limits. 2. Unremarkable bilateral ovaries. DATA REPOSITORY:
[2024-12-17 11:17] VITALS: BP 151/86; PULSE 83; RESP 20; TEMP 36.6; O2SAT 97
--- NOTE | 2024-12-17 11:44 | W.ED.GENAD ---
Discharge Plan Disposition Patient Disposition: Home Discharge Details Clinical Impression: Abdominal pain, Constipation Primary Care Provider: Sanam Pierce ED Provider: Savanna Rodriguez Home Meds and New Rx's Prescriptions: New ketorolac 10 mg tablet 10 mg PO Q6H PRNQty: 7 0RF Rx Instructions: maximum total duration of 5 days from all oral, intranasal, or parenteral formulations Discontinued ibuprofen 600 mg tablet 600 mg PO Q8H PRN (Reason: pain) Qty: 60 4RF diclofenac sodium 50 mg tablet,delayed release (DR/EC) 50 mg PO BID Qty: 10 0RF No Action loratadine [Claritin] 10 mg tablet 10 mg PO PRN pantoprazole [Protonix] 40 mg tablet,delayed release (DR/EC) 40 mg PO DAILY Qty: 30 0RF ondansetron 4 mg tablet,disintegrating 4 mg PO Q8H PRN (Reason: nausea and vomiting) Qty: 90 4RF (DME) Aerochamber Plus Flow-Vu 1 EACH spacer 1 ea Miscellaneous PRN Qty: 1 Rx Instructions: use with pro-air inhaler albuterol sulfate [ProAir HFA] 8.5 GM HFA aerosol inhaler 2 puff Inhalation Q4H PRNQty: 1 Rx Instructions: take 2 puffs (5 minutes apart) 15 minutes prior to exercise and every 4 hours as needed for wheezing/work of breathing Chewable Multi Vitamin 1 EACH tablet,chewable 1 tab PO DAILY PRN PRN fluticasone propionate [Flonase Allergy Relief] 50 mcg/actuation [place],Suspension 1 spray INTRANASAL PRN PRN Orilissa 150 mg tablet 150 mg PO DAILY Patient Comments: TAKE ONE TABLET BY MOUTH EVERY DAY Discharge Instructions Additional Instructions: Please follow-up with your RN EMERGENCY ROOM team and primary care provider as discussed for further evaluation/management of your abdominal pain. Your ultrasound was reassuring; there were no cysts or masses noted. Your uterus appeared normal. There was evidence of moderate/severe constipation on your CAT scan. I would recommend taking MiraLAX 1-2 times daily 1 full capful in 8 ounces of fluid to help soften stools and allow for larger stools the past. I am prescribing for you a limited number of Toradol tablets. Please do not take more than 4 tablets in 1 day and no longer than 5 days total due to the high risk of adverse reactions such as bleeding. Your urine did show signs of dehydration, since it was very concentrated. It is very important that you stay well-hydrated. Drink plenty of fluids throughout the day. Continue to take Zofran as needed for nausea. Heating pads may also provide some comfort as needed. Return to emergency care if you develop uncontrollable vomiting, fevers associated w/ abdominal pain, significantly worsening acute abdominal pain, blood in stool or emesis, or if you are very worried and need to be rechecked again immediately. Referrals: Sanam Pierce MD [Primary Care Provider] - [facility] General Date/Time Provider Initiated Documentation: 12/17/24 11:13. [facility] Narrative: Lola is a 24 year old female who presents to the emergency department today for evaluation of persistent lower abdominal pain. She reports this is been ongoing for 2 weeks, is described as originating in the right lower quadrant and moving across her lower abdomen towards the left. She has been evaluated in the emergency department at [facility], diagnosed with constipation, but she is concerned because they did not comment on her ovaries and she has a history of ovarian cyst requiring surgical removal. She has had decreased p.o. intake due to nausea/vomiting which she attributes to the pain. She denies associated fever/chills, congestion, sore throat, cough, dysuria, unusual vaginal discharge. She does report she is having smaller stools than usual, has not been taking any medications for discomfort or constipation. Past medical history is significant for endometriosis, gastritis, ovarian cysts. She is currently being managed at [facility]. Physical exam reassuring. Rosalinda is alert and oriented, no acute distress. Moist mucous membranes. Normal heart sounds. Easy work of breathing, lung sounds clear bilaterally. Abdomen is soft, nondistended, tender to palpation in the lower abdomen, no rigidity or guarding. Normoactive bowel sounds. D/dx includes but is not limited to: Ovarian cyst, endometriosis, constipation, functional abdominal pain, UTI She was evaluated at [facility] emergency department on 12/12/24, CT unremarkable other than moderate/severe constipation. Appendix was able to be visualized, normal. I independently interpreted the following tests: CBC, CMP, mag all reassuring. hCG negative. UA notable only for specific gravity greater than 1.030, not consistent with UTI. While in the emergency department, Lola received ODT Zofran and toradol with good improvement of abdominal pain. Overall workup today very reassuring. Unclear etiology of abdominal pain, likely related to constipation that was noted on CT scan. Lola reports that she has daily bowel movements, says they are smaller because she has not been eating much, however I do recommend increasing fluid intake and miralax. Grandmother requested pain medications for Lola such as tramadol or Percocet, advised her that I did not feel this was medically necessary with a normal workup. She says that Tylenol, ibuprofen, and Aleve do not work for her. She would like to go home with a prescription for Toradol. A limited prescription of toradol PO provided. Reviewed discharge instructions with patient and her grandmother, including symptomatic management and red flags indicating need for return to emergency care Related Data Home Medications ?Medication ?Instructions ?Recorded ?Confirmed multivitamin (Chewable Multi 1 tab PO DAILY PRN PRN 10/29/14 12/17/24 Vitamin tablet) inhalational spacing device ##1 05/16/16 12/17/24 (Aerochamber Plus Flow-Vu) albuterol sulfate 90 mcg/actuation 2 puff inhalation Q4H PRN ##1 05/15/17 12/17/24 aerosol inhaler (ProAir HFA) fluticasone propionate 50 1 spray intranasal PRN PRN 09/27/21 12/17/24 mcg/actuation nasal spray,suspension (Flonase Allergy Relief) loratadine 10 mg tablet (Claritin) 10 mg PO PRN 10/12/21 12/17/24 pantoprazole 40 mg tablet,delayed 40 mg PO DAILY #30 tabs 10/12/21 12/17/24 release (Protonix) ondansetron 4 mg disintegrating 4 mg PO Q8H PRN nausea and 10/26/24 12/17/24 tablet vomiting #90 tabs elagolix 150 mg tablet (Orilissa) 150 mg PO DAILY 12/17/24 12/17/24 ketorolac 10 mg tablet 10 mg PO Q6H PRN #7 tabs 12/17/24 Previous Rx's ?Medication ?Instructions ?Recorded pantoprazole 40 mg tablet,delayed 40 mg PO DAILY #30 tabs 10/12/21 release (Protonix) ondansetron 4 mg disintegrating 4 mg PO Q8H PRN nausea and 10/26/24 tablet vomiting #90 tabs ketorolac 10 mg tablet 10 mg PO Q6H PRN #7 tabs 12/17/24 Allergies Allergy/AdvReac Type Severity Reaction Status Date / Time No Known Allergies Allergy Verified 12/17/24 11:18 General Stated Complaint: Abd Prob KAYLI: 3 Review of Systems Narrative: see HPI Exam Const General: cooperative, no acute distress, well developed and well groomed Nutritional Appearance: average body habitus and well nourished Orientation: alert and oriented x3 HENMT Mouth: moist mucous membranes Resp Effort & Inspection: normal respiratory effort and able to speak in complete sentences Auscultation: clear to auscultation bilaterally Cardio Rate: regular rate Rhythm: regular rhythm GI Inspection: normal to inspection and non-distended Palpation: soft, not rigid and tender in the LLQ, in the RLQ and suprapubicly; with no rebound tenderness Auscultation: normal bowel sounds Skin General skin exam: no rashes or lesions noted Course Vital Signs Vital signs: Vital Signs Temperature 36.6 C 12/17/24 11:13 Pulse 83 12/17/24 11:13 Respiratory Rate 20 12/17/24 11:13 Blood Pressure 151/86 H 12/17/24 11:13 Pulse Oximetry 97 12/17/24 11:13 Temperature 36.6 C 12/17/24 11:17 Pulse 83 12/17/24 11:17 Respiratory Rate 20 12/17/24 11:17 Blood Pressure 151/86 H 12/17/24 11:17 Blood Pressure Position Sitting 12/17/24 11:17 Pulse Oximetry 97 12/17/24 11:17 Oxygen Delivery Method Room Air 12/17/24 11:17 Oxygen Flow Rate 0 12/17/24 11:17 Medical Decision Making Imaging Data Radiologic Study: Radiologist's impression: Exam(s) US PELVIS TRANSVAGINAL EXAM: US PELVIS TRANSVAGINAL CLINICAL HISTORY: RLQ pelvic pain h/o ovarian cysts + endometriosis. TECHNIQUE: Transabdominal and transvaginal pelvic ultrasound was performed using standard protocol. COMPARISON: US US PELVIS TRANSVAGINAL from 02/04/2024 FINDINGS: UTERUS: Position: Anteverted. Size: 7.8 long by 3.3 AP by 5.1 transverse cm Endometrium: 0.2 cm. Normal for patient's menstrual status. Myometrium: Unremarkable. Cervix: Unremarkable. OVARIES: Right: 2.6 x 1.4 x 1.4 cm Cyst or mass: No suspicious cystic or solid masses. Left: 2.9 x 1.8 x 2.1 cm Cyst or mass: No suspicious cystic or solid masses. DOPPLER: Color: Symmetric and uniform flow to both ovaries. CUL-DE-SAC: Free fluid: None. Other: None. IMPRESSION: 1. Normal-appearing uterus with endometrial stripe within normal limits. 2. Unremarkable bilateral ovaries. Quality:SDOH Health Related Social Needs: No Data to Display PFSH All Active Problems (Updated 12/17/24 @ 13:36 by Savanna Fisher) Constipation (Acute) Endometriosis determined by laparoscopy (Acute) 02/04/24. Bilateral endometriomas. s/p laparoscopic R & L ovarian cystectomy. Depo-Provera contraceptive status (Acute) 10/2024. Rx for pelvic pain after # 3 doses of DepoLupron for stage 4 endometriosis. Nausea & vomiting (Acute) Pt reports GI issues are secondary to pelvic pain. Dysmenorrhea (Acute) Diarrhea, functional (Acute) Postprandial RUQ pain (Acute) Abdominal pain (Acute) Gastritis (Acute) Pelvic pain (Acute) Mild intermittent asthma (Acute) Dysmenorrhea in adolescent (Acute 08/27/17) Menorrhagia with regular cycle (Acute 08/27/17) Medical History (Updated 12/17/24 @ 13:36 by Savanna Fisher) Prophylactic use of leuprolide acetate (Lupron) 10/2024. stopped after 3 doses 2/2 insurance issues. Rx with DepoProvera initiated. Endometrioma of ovary 02/04/24. 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 Laparoscopic bilateral ovarian cystectomies for stage 4 endometriosis. History of esophagogastroduodenoscopy (EGD) (~09/2021) Arthroplasty of knee Family History Mother No problems noted. 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 Do you feel safe at home: Yes Do you feel safe in your relationship?: Yes Female Reproductive History Menstrual Age of Menarche: 16 control method: pills History History 0 Para Hx # Term Pregnancies Multiple births Hx # Pregnancies Ectopic pregnancies AB induced Hx Number of Living Children AB spontaneous PAWSS Have you Been Recently Intoxicated or Drunk Within the Last 30 days?: No Have you Ever Experienced Previous Episodes of Alcohol Withdrawal?: No Have you ever Experienced Withdrawal Seizures?: No Have you ever Experienced Delirium Tremens(DT)s?: No Have you ever undergone Alcohol Rehabilitation Treatment (i.e, inpt ot outpatient treatment programs)?: No Have you ever Experienced Blackouts?: No Have you ever Combined Alcohol with other Downers within the last 90 days?: No Have you ever Combined Alcohol with any other Substance of Abuse during the last 90 days?: No Positive Blood Alcohol level on Presentation? [PCS.BAL]: No Evidence of Increased Autonomic Activity (i.e. HR>120, tremor, sweating, agitation, nausea)?: No Result: 0
[2024-12-17] MEDS: Ondansetron O.D.T. 4 MG TABEF PO (11:58)
[2024-12-17 12:19] LABS: Abs Immature Grans 0.03 10^3/uL (0.0-0.06); Absolute Basophil Count 0.08 10^3/uL (0.0-0.2); Absolute Eosinophil Count 0.39 10^3/uL (0.0-0.7); Absolute Lymphocyte Count 1.87 10^3/uL (1.2-3.4); Absolute Monocyte Count 0.77 10^3/uL (0.1-0.8); Absolute Neutrophil Count 6.06 10^3/uL (1.2-6.7); Basophils % 0.9 %; Eosinophils % 4.2 %; HCT 43.5 % (36.0-46.0); HGB 14.1 g/dL (11.2-15.7); Immature Grans % 0.3 %; Lymphocytes % 20.3 %; MCH 27.2 pg (27.0-33.0); MCHC 32.4 % (32.0-36.0); MCV 84 fL (80-95); MPV 9.1 fL (8.0-11.0); Monocytes % 8.4 %; Neutrophils % 65.9 %; Platelet Count 327 10^3/uL (130-400); RBC 5.19 10^6/uL (3.93-5.22); RDW 12.8 % (11.7-14.6); RDW-SD 38.9 fL
[2024-12-17 12:33] LABS: ALT 15 U/L (14-59); AST 13 U/L (15-37); Albumin 4.1 g/dL (3.4-5.0); Alkaline Phosphatase 62 U/L (46-116); Anion Gap 10.3 mmol/L (3-11); BUN 7 mg/dL (7-18); Bilirubin, Total 0.5 mg/dL (0.2-1.0); CO2 24.7 mmol/L (21.0-32.0); CREATININE 0.8 mg/dL (0.55-1.02); Calcium 9.3 mg/dL (8.5-10.1); Chloride 106 mmol/L (98-107); Estimated GFR 106.11 (mL/min/1.73m2); Glucose 105 mg/dL (74-106); Magnesium 2.3 mg/dL (1.8-2.4); Potassium 4.2 mmol/L (3.5-5.1); Sodium 141 mmol/L (136-145); Total Protein 7.8 g/dL (6.4-8.2)
[2024-12-17 12:41] LABS: Bilirubin Negative (Negative); Blood Negative (Negative); Clarity Cloudy (Clear); Glucose Negative (Negative); Ketones Negative (Negative); Leukocyte Esterase Negative (Negative); Nitrite Negative (Negative); Specific Gravity >= 1.030 (1.005-1.025); Urobilinogen 0.2 mg/dL (Up to 0.2); pH 5.5 (5-8)
[2024-12-17] MEDS: Ketorolac 15 MG/ML VIAL IVP (13:07)
[2024-12-17 13:35] VITALS: BP 141/90; PULSE 84; RESP 16; O2SAT 99
[2024-12-17 13:48] VITALS: TEMP 36.9
== END 2024-12-17 13:58 | disposition home or self-care (01) ==
PROVIDERS: Emergency Provider Nurse Practitioner Family; PCP Family Medicine
DX: R10.2 Pelvic and perineal pain (principal); R11.2 Nausea with vomiting, unspecified; K59.00 Constipation, unspecified; F17.290 Nicotine dependence, other tobacco product, uncomplicated
CPT/HCPCS: 36415; 80053; 81025; 96374; 99284; 76830; 76856; 81003; 83735; 85025; J1885

== ENCOUNTER 2025-03-23 11:33 | Emergency (ER) | payer BC, SELFPAY ==
[2025-03-23 11:42] VITALS: BP 154/94; PULSE 92; RESP 18; TEMP 36.7; O2SAT 98
--- NOTE | 2025-03-23 12:06 | W.ED.GENAD ---
Discharge Plan Disposition Patient Disposition: Eloped Condition: Stable Discharge Details Clinical Impression: Pelvic pain Primary Care Provider: Sanam Pierce ED Provider: Sidney Reyes Home Meds and New Rx's Prescriptions: No Action loratadine [Claritin] 10 mg tablet 10 mg PO PRN ondansetron 4 mg tablet,disintegrating 4 mg PO Q8H PRN (Reason: nausea and vomiting) Qty: 90 4RF (DME) Aerochamber Plus Flow-Vu 1 EACH spacer 1 ea Miscellaneous PRN Qty: 1 Rx Instructions: use with pro-air inhaler albuterol sulfate [ProAir HFA] 8.5 GM HFA aerosol inhaler 2 puff Inhalation Q4H PRNQty: 1 Rx Instructions: take 2 puffs (5 minutes apart) 15 minutes prior to exercise and every 4 hours as needed for wheezing/work of breathing Chewable Multi Vitamin 1 EACH tablet,chewable 1 tab PO DAILY PRN PRN fluticasone propionate [Flonase Allergy Relief] 50 mcg/actuation [place],Suspension 1 spray INTRANASAL PRN PRN [place] 150 mg tablet 150 mg PO DAILY Patient Comments: TAKE ONE TABLET BY MOUTH EVERY DAY ketorolac 10 mg tablet 10 mg PO Q6H PRNQty: 7 0RF Rx Instructions: maximum total duration of 5 days from all oral, intranasal, or parenteral formulations gabapentin 300 mg capsule 300 mg PO DAILY fluoxetine 20 mg capsule 20 mg PO DAILY Patient Comments: TAKE ONE CAPSULE BY MOUTH EVERY DAY HPI General Mode of arrival: ambulatory. Date/Time Provider Initiated Documentation: 03/23/25 11:36. Limitations to Documentation: no limitations. Information obtained by: patient. History of Present Illness 24 year old F presents to the emergency department with the chief complaint of pelvic pain, described as severe, Quality is described as sharp, and is localized to the pelvis. Patient reports no radiation. Patient started experiencing this day(s) (1) and it has been constant. No relieving factors improve symptom(s), No exacerbating factors reported . Patient notes nausea/vomiting; denies fever/chills. Patient did receive the following treatments prior to arrival, NSAID Related Data Home Medications ?Medication ?Instructions ?Recorded ?Confirmed multivitamin (Chewable Multi 1 tab PO DAILY PRN PRN 10/29/14 03/23/25 Vitamin tablet) inhalational spacing device ##1 05/16/16 03/23/25 (Aerochamber Plus Flow-Vu) albuterol sulfate 90 mcg/actuation 2 puff inhalation Q4H PRN ##1 05/15/17 03/23/25 aerosol inhaler (ProAir HFA) fluticasone propionate 50 1 spray intranasal PRN PRN 09/27/21 03/23/25 mcg/actuation nasal spray,suspension (Flonase Allergy Relief) loratadine 10 mg tablet (Claritin) 10 mg PO PRN 10/12/21 03/23/25 ondansetron 4 mg disintegrating 4 mg PO Q8H PRN nausea and 10/26/24 03/23/25 tablet vomiting #90 tabs elagolix 150 mg tablet (Orilissa) 150 mg PO DAILY 12/17/24 03/23/25 ketorolac 10 mg tablet 10 mg PO Q6H PRN #7 tabs 12/17/24 03/23/25 fluoxetine 20 mg capsule 20 mg PO DAILY 03/23/25 03/23/25 gabapentin 300 mg capsule 300 mg PO DAILY 03/23/25 03/23/25 Previous Rx's ?Medication ?Instructions ?Recorded ondansetron 4 mg disintegrating 4 mg PO Q8H PRN nausea and 10/26/24 tablet vomiting #90 tabs ketorolac 10 mg tablet 10 mg PO Q6H PRN #7 tabs 12/17/24 Allergies Allergy/AdvReac Type Severity Reaction Status Date / Time No Known Allergies Allergy Verified 03/23/25 11:46 General 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: 4 Review of Systems All systems reviewed & are unremarkable except as noted in HPI and below Constitutional Constitutional: Denies chills, Denies fever(s) and Denies weakness Cardiovascular Cardiovascular: Denies chest pain and Denies dyspnea Respiratory Respiratory: Denies cough and Denies dyspnea Gastrointestinal Gastrointestinal: Denies abdominal pain, Reports nausea and Reports vomiting Genitourinary Genitourinary: Denies dysuria and Reports pelvic pain Neurologic Neurologic: Denies weakness Exam Const General: no acute distress Orientation: alert [facility] Head: normal to inspection Ears: external ears normal General nose exam: external nose normal Mouth: moist mucous membranes Eyes General: appearance normal, both eyes and all related structures Neck Neck: normal visual inspection Resp Effort & Inspection: normal respiratory effort and able to speak in complete sentences Cardio Rate: regular rate GI Palpation: soft, not firm and no guarding Skin General skin exam: no rashes or lesions noted Neuro General: patient alert and patient oriented x3 Extrem General: normal to inspection Psych Mental Status: mental status grossly normal Course Vital Signs Vital signs: Vital Signs Temperature 36.7 C 03/23/25 11:42 Pulse 92 H 03/23/25 11:42 Respiratory Rate 18 03/23/25 11:42 Blood Pressure 154/94 H 03/23/25 11:42 Pulse Oximetry 98 03/23/25 11:42 Temperature 36.7 C 03/23/25 11:42 Pulse 92 H 03/23/25 11:42 Respiratory Rate 18 03/23/25 11:42 Blood Pressure 154/94 H 03/23/25 11:42 Pulse Oximetry 98 03/23/25 11:42 Pain Level 9 03/23/25 11:42 Medical Decision Making 24-year-old female who states she has a history of endometriosis comes in with pelvic pain and nausea vomiting. Denies any vaginal bleeding or discharge, fevers or chills, chest pain or difficulty breathing. She says this feels like her prior episodes of endometriosis pain. Her abdomen is soft and nondistended. She has tenderness in the very low quadrants of the abdomen more in the pelvis. No rebound. Suspect endometriosis but given location of pain will obtain ultrasound to evaluate for ovarian cyst versus torsion. Will check a CBC CMP lipase and UA and hCG. Labs and ultrasound negative. Patient decided to leave prior to results being done before I could speak with her. Given reassuring workup I do not feel she requires a call back. She is going to follow-up with her QUALITY ASSURANCE PRACTICE MANAGER for conversation initially. Differential Diagnosis Differential Diagnosis: Endometriosis, ovarian cyst, ovarian torsion. Medical Records Medical records reviewed: Yes I reviewed the patient's medical records. Lab Data Lab results reviewed: Yes I reviewed the patient's lab results. PFSH All Active Problems (Updated 03/23/25 @ 13:36 by Sidney Reyes MD) Endometriosis determined by laparoscopy (Acute) 02/04/24. Bilateral endometriomas. s/p laparoscopic R & L ovarian cystectomy. Depo-Provera contraceptive status (Acute) 10/2024. Rx for pelvic pain after # 3 doses of DepoLupron for stage 4 endometriosis. Nausea & vomiting (Acute) Pt reports GI issues are secondary to pelvic pain. Dysmenorrhea (Acute) Diarrhea, functional (Acute) Postprandial RUQ pain (Acute) Abdominal pain (Acute) Gastritis (Acute) Pelvic pain (Acute) Mild intermittent asthma (Acute) Dysmenorrhea in adolescent (Acute 08/27/17) Menorrhagia with regular cycle (Acute 08/27/17) Medical History (Updated 03/23/25 @ 13:36 by Sidney Reyes MD) Prophylactic use of leuprolide acetate (Lupron) 10/2024. stopped after 3 doses 2/2 insurance issues. Rx with DepoProvera initiated. Endometrioma of ovary 02/04/24. 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 Laparoscopic bilateral ovarian cystectomies for stage 4 endometriosis. History of esophagogastroduodenoscopy (EGD) (~09/2021) Arthroplasty of knee Family History Mother No problems noted. 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 Do you feel safe at home: Yes Do you feel safe in your relationship?: Yes Female Reproductive History Menstrual Age of Menarche: 16 control method: pills History History 0 Para Hx # Term Pregnancies Multiple births Hx # Pregnancies Ectopic pregnancies AB induced Hx Number of Living Children AB spontaneous
[2025-03-23 12:30] LABS: Abs Immature Grans 0.03 10^3/uL (0.0-0.06); Absolute Basophil Count 0.07 10^3/uL (0.0-0.2); Absolute Lymphocyte Count 1.43 10^3/uL (1.2-3.4); Absolute Monocyte Count 0.78 10^3/uL (0.1-0.8); Absolute Neutrophil Count 5.84 10^3/uL (1.2-6.7); Basophils % 0.8 %; Eosinophils % 1.2 %; HCT 44.2 % (36.0-46.0); HGB 14.2 g/dL (11.2-15.7); Immature Grans % 0.4 %; Lymphocytes % 17.3 %; MCH 27.7 pg (27.0-33.0); MCHC 32.1 % (32.0-36.0); MCV 86 fL (80-95); MPV 9.1 fL (8.0-11.0); Monocytes % 9.5 %; Neutrophils % 70.8 %; Platelet Count 287 10^3/uL (130-400); RBC 5.12 10^6/uL (3.93-5.22); RDW 13.4 % (11.7-14.6); RDW-SD 42.5 fL; WBC 8.25 10^3/uL (4.4-10.8)
--- NOTE | 2025-03-23 12:30 | DI.US_ITS ---
Exam(s) US PELVIS TRANSVAGINAL EXAM: US PELVIS TRANSVAGINAL CLINICAL HISTORY: pelvic pain, ?ovarian cysts vs torsion. TECHNIQUE: Transabdominal and transvaginal pelvic ultrasound was performed using standard protocol. COMPARISON: US US PELVIS TRANSVAGINAL from 12/17/2024 FINDINGS: UTERUS: Position: Anteverted. Size: 7.0 long by 2.9 AP by 4.6 transverse cm Endometrium: 0.3 cm. Normal for patient's menstrual status. Myometrium: Unremarkable. Cervix: Unremarkable. OVARIES: There is no evidence of torsion. Right: 3.4 x 2.8 x 1.6 cm Cyst or mass: No suspicious cystic or solid masses. Left: 4.1 x 4.1 x 2.4 cm Cyst or mass: No suspicious cystic or solid masses. Multiple follicular cysts are present. There is a hemorrhagic 1.7 cm cyst on the left ovary. DOPPLER: Color: Symmetric and uniform flow to both ovaries. CUL-DE-SAC: Free fluid: None. Other: None. IMPRESSION: 1. Normal-appearing uterus with endometrial stripe within normal limits. 2. Unremarkable bilateral ovaries. DATA REPOSITORY:
[2025-03-23] MEDS: Droperidol 5 MG/2 ML VIAL 2.5 MG IVP (12:33)
[2025-03-23] MEDS: Ketorolac 15 MG/ML VIAL IVP (12:33)
[2025-03-23 12:58] LABS: ALT 22 U/L (14-59); AST 18 U/L (15-37); Albumin 4.8 g/dL (3.4-5.0); Alkaline Phosphatase 65 U/L (46-116); Anion Gap 11.7 mmol/L (3-11); BUN 6 mg/dL (7-18); Bilirubin, Total 0.7 mg/dL (0.2-1.0); CO2 27.3 mmol/L (21.0-32.0); CREATININE 0.7 mg/dL (0.55-1.02); Calcium 9.4 mg/dL (8.5-10.1); Chloride 102 mmol/L (98-107); Estimated GFR 124.55 (mL/min/1.73m2); Glucose 93 mg/dL (74-106); Lipase 26 U/L (<78); Magnesium 1.9 mg/dL (1.8-2.4); Potassium 3.4 mmol/L (3.5-5.1); Sodium 141 mmol/L (136-145); Total Protein 8.2 g/dL (6.4-8.2)
[2025-03-23 13:17] VITALS: BP 154/94; PULSE 92; RESP 18; TEMP 36.7; O2SAT 98
[2025-03-23 13:25] LABS: Bilirubin Negative (Negative); Blood Negative (Negative); Clarity Clear (Clear); Glucose Negative (Negative); Ketones 40 mg/dL (Negative); Leukocyte Esterase Negative (Negative); Nitrite Negative (Negative); Specific Gravity 1.025 (1.005-1.025); Urobilinogen 0.2 mg/dL (Up to 0.2)
== END 2025-03-23 13:36 | disposition left against medical advice (07) ==
PROVIDERS: Emergency Provider Emergency Medicine; PCP Family Medicine
DX: R10.2 Pelvic and perineal pain (principal); N80.103 Endometriosis of bilateral ovaries, unspecified depth; F17.290 Nicotine dependence, other tobacco product, uncomplicated
CPT/HCPCS: 80053; 81025; 83690; 96374; 96375; 99284; 76830; 76856; 81003; 83735; 85025; J1790; J1885